=== PATIENT | female | born 1960 | race Caucasian/White ===

== ENCOUNTER 2016-04-26 01:41 | Inpatient (IN) | payer OTHER ==
[~2016-04-26] VITALS: Ht 154.9 cm; Wt 103.4 kg
[~2016-04-26 01:41] MED LIST: LIDODERM1 EACH EXT; MACROBID 100 M100 MG PO; NOVAPLUS V0.09 MG/Ac INH; PERCOCET 10-321 EACH PO; PREDNICOT20 MG PO; ROBITUSSIN W/CO10 ML PO; SENNA8.6 M3 PO; ZITHROMAX Z-PA250 M1 PO
--- NOTE | 2016-04-26 09:43 | Operative Report ---
Operative/Inv Procedure Report Surgery Date: 04/26/16 Name of Procedure: Right total knee arthroplasty Pre-Operative Diagnosis: Right knee degenerative joint disease Post-Operative Diagnosis: Right knee degenerative joint disease Estimated Blood Loss: 50ml to 100ml Surgeon/Health Insurance Specialist: VANESSA MARTINEZ,ISABELA COHEN Anesthesia: general endotracheal tube, block Implants: More [employer] Nephew size 3-4 9 mm Legion cruciate retaining XLPE high flexion articular insert. Amanda II biconvex patellar component 23 mm. Size 5 right cruciate retaining legion Oxinium femoral component. Amanda II right nonporous tibial baseplate size 4. Drains: Hemovac Complications: None Condition: Stable to PACU Operative Indication: This is a 55-year-old female with long-standing right knee pain. She has failed conservative care as well as a knee arthroscopy. Risks and benefits of the procedure were discussed with the patient at length. Risks include but are not limited to nerve damage, muscle damage, infection, blood loss, blood clots, pulmonary embolus, and even . The patient agreed to the above risks and elected to proceed with surgery. Operative/Procedure Note Note: The patient was taken to the operating room. Anesthesia was induced after the timeout was performed. The lower extremity was prepped and draped in the normal sterile fashion. IV antibiotics were given prior to incision. The site marking was visualized prior to incision. After the leg was prepped and draped, an esmarch was used to exsanguinate the extremity. The tourniquet was inflated. A midline incision was made proximal to the patella extending down to the tibial tubercle. A medial parapatellar approach was then made. The skin was retracted and the extensor mechanism was incised. The knee was taken down into full extension. The patellar fat pad was resected. The medial retinaculum was then taken down. The synovium over the distal femur was then resected. The patella was everted and the knee was flexed up. The lateral meniscus was then excised. The ACL was removed. A drill was then used to open up the distal femur. The intramedullary guide was then applied. A 6 distal femoral cut was then made. The femur was then sized. The chamfer guide was then applied. The anterior, posterior, and chamfer cuts were then made while protecting the patellar tendon with a Hohmann retractor and the medial collateral ligament with a Z retractor. A pickle fork was then used to deliver the tibia. The extramedullary tibial guide was then applied. The proximal tibial cut was made. The medial and lateral meniscus were then excised. The osteophytes were removed with a Rongeur. The tibia was sized and the trial base plate was then pinned in place. A trial femoral component was placed and a trial polyethylene insert was then applied as well. The knee was taken through a range of motion and was noted to be quite stable. The patella was then everted, sized, and then reamed. A trial patellar component was placed and the knee was taken through range of motion. The patella was noted to be quite stable. All trial instruments were then removed. The knee was copiously irrigated. Retractors were placed in the final components were then cemented in. A trial polyethylene insert was then placed. After the cement was hardened, the excess cement was removed. The trial poly-insert was then removed. The knee was copiously irrigated. The final poly insert was inserted. The tourniquet was let down. Any bleeding vessels were identified and cauterized. A 1/8 inch Hemovac drain was then placed. The extensor mechanism was closed with #1 Vicryl suture in a simple interrupted fashion. The skin was closed with 2-0 Vicryl suture. A running subcuticular 4-0 Monocryl stitch was then placed. Dermabond was applied. A dry sterile dressing was placed and patient was transferred to PACU in stable condition.
[2016-04-26] MEDS ORDERED: LOVENOX40 MG/0.1 SC (09:45)
--- NOTE | 2016-04-26 09:49 | Patient Discharge Instructions ---
Discharge Instructions General Discharge Information You were seen/treated for: Right knee osteoarthritis, primarily unilateral You had these procedures: Right total knee replacement Special Instructions: Follow-up with Dr Banegas in 2 weeks. Call the office with any concerns of fever greater than 101.5. Large amounts of discharge or drainage from the wound or inability to bear weight on your operative side. You may weight-bear as tolerated. Activity as tolerated. Range of motion as tolerated. Do not put pillows behind the knee, use a pillow under the heel to ensure your are in full knee extension. Keep the dressing dry as possible, you may shower with the dressing in place however, do not take a bath or submerge the wound in water as this will increase her chance of infection. Change the dressings after the shower. You may use dry gauze and tape or large Band-Aids Do not apply any ointments to the wound. Due to a risk of blood clots you'll need to be on lovenox onde per day for the next 4 weeks. Take pain medication as directed. Apply ice as needed for 20 minutes every hour for the first few days. Please take Colace and/or MiraLAX [id number] to avoid constipation while you're on narcotic pain medication. Diet Continue normal diet: Yes Recommended Diet: Regular Activity Full Activity/No Limits: No Activity Self Limited: Yes Acute Coronary Syndrome Inclusion Criteria At DC or during hospital stay patient has or had the following: ACS DIAGNOSIS No Discharge Core Measures Meds if any: Prescribed or Continued at Discharge Meds if any: NOT Prescribed or Continued at Discharge Congestive Heart Failure Inclusion Criteria At DC or during hospital stay patient has or had the following: CHF DIAGNOSIS No Discharge Core Measures Meds if any: Prescribed or Continued at Discharge Meds if any: NOT Prescribed or Continued at Discharge Cerebrovascular accident Inclusion Criteria At DC or during hospital stay patient has or had the following: CVA/TIA Diagnosis No Discharge Core Measures Meds if any: Prescribed or Continued at Discharge Meds if any: NOT Prescribed or Continued at Discharge Venous thromboembolism Inclusion Criteria VTE Diagnosis No VTE Type NONE VTE Confirmed by (Test) NONE Discharge Core Measures - Per Current guidelines, there needs to be overlap - treatment for the first 5 days of Warfarin therapy. - If discharged on Warfarin prior to 5 days of - overlap therapy, the patient will need to be - assessed for post discharge needs including - *Post discharge parental anticoagulation - *Warfarin and/or parental anticoagulation education - *Follow up date to check INR post discharge At least 5 days overlap therapy as Inpatient No Meds if any: Prescribed or Continued at Discharge Note: Overlap Therapy is Warfarin and Anticoagulant Meds if any: NOT Prescribed or Continued at Discharge
--- NOTE | 2016-04-26 09:50 | Admission Core Measures ---
Admission Meds I reviewed the following Meds: Current Medications Sig/Yousuf Start time Last Medication Dose Stop Time Status Admin Clindamycin 600 MG ONCE 04/26 0000 NR (Cleocin) 04/26 2359 Dextrose/Water 50 ML (D5W) Ropivacaine 500 ML ONCE ONE 04/26 1000 AC (NAROPIN) 04/28 1159 ON-Q Ball 1 BAG Acute Coronary Syndrome Inclusion Criteria ACS Diagnosis No Inpatient Core Measures LDL Reminder: If No, please order W/I first 24hr of stay Congestive Heart Failure Inclusion Criteria CHF Diagnosis No Cerebrovascular accident Inclusion Criteria CVA/TIA Diagnosis No Inpatient Core Measures Bedside Swallow Eval Reminder: If BSE failed, place ST order Antithrombotic Reminder: Order Antithrombotic Medication by end of day 2 Antithrombotic Reminder: Document Reason Antithrombotic Not ordered by end of day 2 AFIB/Flutter Reminder: If Present, add to problem list AFIB/Flutter Reminder: Order Anticoag Medication for pts with AFIB/Flutter Atherosclerosis Reminder: If Present, add to problem list LDL Reminder: If No, please order W/I first 24hr of stay PT Order Reminder: If No, please order Venous thromboembolism Inpatient Core Measures VTE Risk Factors: Age > 40, Surgery VTE Prophylaxis Ordered Inpt Mech & Pharm No Mech VTE prophylaxis d/t No contraindications No VTE Pharm Prophylaxis d/t No contraindications Inclusion Criteria - Per Current guidelines, there needs to be overlap - treatment for the first 5 days of Warfarin therapy. - Parenteral Anticoagulation (IV or SC) needs to be - given along with Warfarin therapy. VTE Diagnosis No VTE Type NONE VTE Confirmed by (Test) NONE Problem List As ranked by this Provider includes Assessment & Plan 1. Unilateral primary osteoarthritis, right knee HOME MEDS Home Med List Lidocaine (Lidoderm) 5 % ADH..PATCH 1 PATCH EXT DAILY PRN PAIN (Reported) Nitrofurantoin Monohyd/M-Cryst (Macrobid 100 MG Capsule) 100 MG CAPSULE 1 TAB PO QOD PROPHO UTI (Reported) Oxycodone HCl/Acetaminophen (Percocet 10-325 MG Tablet) 10 MG-325 MG TABLET 1 TAB PO TID PRN PAIN (Reported) Sennosides (Senna) 8.6 MG TABLET 1 TAB PO DAILY CONSTIPATION (Reported)
--- NOTE | 2016-04-26 09:54 | Surgical Discharge Summary ---
Visit Information Visit Dates Admission Date: 04/26/16 Discharge Date: 05/01/16 History of Present Illness Chief Complaint: Right knee pain secondary to right knee osteoarthritis. Patient has failed conservative treatment is indicated for right total knee arthroplasty. She had a DSA in the past with a meniscectomy, LUCAS injections without relief. Medical History Neurological: NONE EENT: NONE Cardiovascular: aortic aneurysm Respiratory: NONE Gastrointestinal: NONE Hepatic: NONE Renal: NONE Musculoskeletal: CHRONIC BACK PAIN Psychiatric: NONE Endocrine: NONE Blood Disorders: NONE Cancer(s): NONE PHOTOGRAPH INSPECTOR/Reproductive: NONE Surgical History Pertinent Surgical History: hysterectomy, BACK SURGERY BLADDER LIFT, SHOULDER SURGERY Psychosocial History Who Do You Live With? Spouse What is Your Primary Language? Swedish Review of Systems: See HPI Hospital Course Course Attending Physician: ISABELA GOMEZ MD Primary Care Physician: DIDIER KNOX MD Hospital Course: Patient was admitted for elective RIGHT KNEE replacement secondary to osteoarthritis. The patient tolerated the procedure well without complications. Postoperatively the patient was monitored and tolerated by mouth intake, vital signs are stable, afebrile. Patient was able to void spontaneously. Pain was well-controlled. Evaluated by physical therapy and deemed stable for discharge home. Plan is to follow up as scheduled and instructed to call with any questions or concerns She received Cleocin for infectious prophylaxis and Lovenox for DVT prophylaxis. Allergies: Coded Allergies: ciprofloxacin (From Cipro) (Intermediate, HIVES 09/02/15) Penicillins (04/18/16) adhesive tape (UNKNOWN 09/02/15) diphenhydramine (UNKNOWN 09/02/15) Disposition Summary Disposition Principal Diagnosis: Primary unilateral right knee osteoarthritis Additional Diagnosis: Same plus status post right total knee arthroplasty Discharge Disposition: SNF Discharge Instructions General Discharge Information Code Status: Full Code Patient's Diet: Regular Patient's Activity: Ambulate as tolerated Follow-Up Instructions/Appts: Follow-up with Dr. Gomez in 2 weeks Medications at Discharge Discharge Medications: Stop taking the following medications: Oxycodone HCl/Acetaminophen (Percocet 10-325 MG Tablet) 10 MG-325 MG TABLET ORAL THREE TIMES DAILY as needed for PAIN Continue taking these medications: Nitrofurantoin Monohyd/M-Cryst (Macrobid 100 MG Capsule) 100 MG CAPSULE 1 Tablet ORAL QOD Lidocaine (Lidoderm) 5 % ADH..PATCH 1 PATCH ON SKIN DAILY as needed for PAIN Sennosides (Senna) 8.6 MG TABLET 1 Tablet ORAL DAILY Start taking the following new medications: Oxycodone HCl (Oxycodone HCl) 10 MG TABLET 10 Milligram ORAL EVERY 4 HOURS NEEDED as needed for PAIN SCALE 4-6 ( MODERATE) Qty = 1 No Refills Oxycodone HCl (Oxycodone HCl) 5 MG TABLET 15 Milligram ORAL EVERY 4 HOURS NEEDED as needed for PAIN SCALE 7-10 ( SEVERE) Qty = 1 No Refills Enoxaparin Sodium (Lovenox) 40 MG/0.4 ML SYRINGE 0.4 Milliliters Inject into fatty tissue DAILY Qty = 30 No Refills Acetaminophen (Tylenol) 325 MG TABLET 2 Tablet ORAL Q4H as needed for PAIN Qty = 1 No Refills Oxycodone HCl (Oxycontin) 30 MG TAB.ER.12H 1 Tablet ORAL TWICE DAILY Qty = 1 No Refills
[2016-04-26 14:00] VITALS: BP 130/70
--- NOTE | 2016-04-26 15:41 | PN- Orthopedic ---
Subjective Subjective: Post op check. Patient received on general surgical floor. She tolerated procedure well but is complaining of surgical pain. She deneis chest pain, shortness of breath and difficulty breathing. She denies nausea and vomitting. She has yet to ambulate. Objective Vital Signs and I&Os Vital Signs Date Time Temp Pulse Resp B/P Pulse O2 O2 Flow FiO2 Ox Delivery Rate 04/26 1425 Nasal 3.0L Cannula 04/26 1417 97 Nasal 3.0L Cannula 04/26 1400 97.0 68 18 130/70 97 Nasal 3.0L Cannula Intake & Output 04/26 1600 04/26 0800 04/26 0000 04/25 1600 04/25 0800 04/25 0000 Intake Total Output Total 2400 Balance -2400 Output, Urine 2400 Patient 228 lb Weight Physical Exam: General: Alert and oriented x3, no acute distress Cardiac: RRR, s1s2 Pulm: CTA bilaterally Abdomen: Non-tender, non-distended Extremities: Moves all extremities, distal sensation intact. Motor 5/5 in plantar and dorsi flexion. Skin warm and well perfused. DP pulses palpable bilaterally. Bilateral calves soft and non-tender Surgical site: Right knee. Dressing intact. JAMES drain holding suction with sanguinous drainage. On Q in place without evidence of leaking or infiltrate Assessment/Plan Assessment/Plan This is a 55 year old POD 0, s/p R tkr -Dilaudid [employer] -Cleocin for abx ppx -Lovenox for dvt ppx -OOB with PT, wbat -Advance diet as tolerated -Bowel regimen to include colace and miralax -Pt anticipating d/c to str -Will d/w Dr. Gomez Core Measures/Miscellaneous Venous Thromboembolism VTE Risk Factors: Age > 40, Surgery VTE Contraindications: No Contraindications VTE Prophylaxis Ordered Inpt: Mech & Pharm VTE Diagnosis: No VTE Type: NONE VTE Confirmed by (Test): NONE Beta Aramis Is Beta Aramis a Home Med? No Antibiotics Is Patient on Antibiotics? Yes If Yes: prophylaxis
[2016-04-26 16:25] VITALS: BP 130/77
[2016-04-26 18:08] VITALS: BP 141/87
[2016-04-26 20:07] VITALS: BP 127/70
[2016-04-26 21:59] VITALS: BP 126/63
[2016-04-27] VITALS (13 sets, daily range): BP systolic 114–149; BP diastolic 60–78
--- NOTE | 2016-04-27 07:36 | PN- Orthopedic ---
Subjective Subjective: POD #1 s/p right TKR. Resting comfortably in bed. No complaints of pain. Using Dilaudid TERMINATION CLERK often. Did not sleep last night. Voiding via elias catheter. Yet to ambulate. Objective Vital Signs and I&Os Vital Signs Date Time Temp Pulse Resp B/P Pulse O2 O2 Flow FiO2 Ox Delivery Rate 04/27 0653 98.0 70 20 132/77 98 Nasal 3.0L Cannula 04/27 0600 98.0 70 20 132/77 04/27 0402 97.8 67 20 149/78 100 Nasal 3.0L Cannula 04/27 0400 97.8 67 20 149/78 04/27 0256 98.0 62 20 118/73 95 Nasal 3.0L Cannula 04/27 0200 98.0 62 20 118/73 04/27 0005 98.1 64 20 120/60 96 Nasal 3.0L Cannula 04/27 0000 98.1 64 20 120/60 04/27 0000 100 Nasal 3.0L Cannula 04/26 2159 98.9 68 20 126/63 96 Nasal Cannula 04/26 2006 97.3 73 20 127/70 97 Nasal Cannula 04/26 1808 98.0 88 20 141/87 96 Nasal Cannula 04/26 1625 97.8 66 20 130/77 97 Nasal Cannula 04/26 1600 Nasal 3.0L Cannula 04/26 1425 Nasal 3.0L Cannula 04/26 1417 97 Nasal 3.0L Cannula 04/26 1400 97.3 68 18 130/70 04/26 1400 97.0 68 18 130/70 97 Nasal 3.0L Cannula Intake & Output 04/27 0800 04/27 0000 04/26 1600 04/26 0800 04/26 0000 04/25 1600 Intake Total 840 1500 Output Total 915 2100 2400 Balance -75 -600 -2400 Intake, IV 600 700 Intake, Oral 240 800 Output, 65 Drainage Output, Urine 850 2100 2400 Patient 228 lb Weight Physical Exam: Gen: AAox3 in NAD Cor: S1+S2+ Lungs: CTA tere Abd: soft, NT, ND, +BS x4 Ext: palpable Dp pulse. Taras wrap in place. Dorsiflexion and plantar flexion intact. Sensation grossly intact. Onq in place. CARLOS drain with sanguinous drainage noted (actively into CARLOS). Thigh compartment soft. CARLOS: -/not documented (per patient whole bulb of CARLOS was emptied)/100ml Current Medications: Current Medications Sig/Yousuf Start time Last Medication Dose Route Stop Time Status Admin Acetaminophen 1,000 MG Q6P PRN 04/26 1615 AC 04/26 N/A 1 UNIT IV 2153 Acetaminophen 650 MG Q4P PRN 04/26 1415 AC PO Clindamycin 600 MG IQ8 04/26 1600 DC 04/26 Dextrose/Water 50 ML IV 04/27 0029 2343 Clindamycin 600 MG ONCE 04/26 0000 DC Dextrose/Water 50 ML IV 04/26 2359 Dextrose/Sodium 1,000 ML .[id number] 04/26 1415 DC 04/27 Chloride IV 0402 Docusate Sodium 100 MG DAILY NEEDED PRN 04/26 1415 AC PO Enoxaparin Sodium 40 MG DAILY 04/27 1000 AC SC Hydromorphone HCl 50 MG Q24H PRN 04/26 1200 AC Sodium Chloride 45 ML IV Hydromorphone HCl 2 MG .STK-MED ONE 04/26 1054 DC IM 04/26 1055 Hydromorphone HCl 2 MG .STK-MED ONE 04/26 0949 DC IM 04/26 0950 Ketorolac 30 MG Q6P PRN 04/26 1915 AC 04/27 Tromethamine IV 0110 Ketorolac 30 MG Q6P PRN 04/26 1415 DC Tromethamine IM 04/29 1403 Morphine Sulfate 15 MG BID 04/26 2200 AC 04/26 PO 2150 Morphine Sulfate 4 MG Q2P PRN 04/26 1415 AC IV Ondansetron HCl 4 MG Q6P PRN 04/26 1415 AC IV Oxycodone/ 1 TAB Q4 HRS NEEDED PRN 04/26 1415 AC Acetaminophen PO Oxycodone/ 2 TAB Q4P PRN 04/26 1415 AC Acetaminophen PO Polyethylene Glycol 17 GM DAILY NEEDED PRN 04/26 1415 AC PO Promethazine HCl 12.5 MG Q6P PRN 04/26 1415 AC IV 05/03 0944 Ropivacaine 500 ML ONCE ONE 04/26 1000 AC ON-Q Ball 1 BAG INJ 04/28 1159 Results Last 48 Hours of Labs: Laboratory Tests 04/27 0700 Chemistry Sodium Pending Potassium Pending Chloride Pending Carbon Dioxide Pending Anion Gap Pending BUN Pending Creatinine Pending BUN/Creatinine Ratio Pending Hematology CBC w Diff Pending WBC Pending RBC Pending Hgb Pending Hct Pending MCV Pending MCH Pending RDW Pending Plt Count Pending MPV Pending PUBS MCHC Pending Assessment/Plan Assessment/Plan A: POD #1 s/p right TKR; AVSS. Plan: D/C elias catheter. Patient will be due to void. Aggressive bowel regimen. F/U pain management recommendations. will likely need to stop Dilaudid TERMINATION CLERK today. PT/OT evaluation today. Dressing change tomorrow with removal of Onq pump. Carlos to be reassessed later today for removal due to high sanguinous output. Core Measures/Miscellaneous Venous Thromboembolism VTE Risk Factors: Age > 40, Surgery VTE Contraindications: No Contraindications VTE Prophylaxis Ordered Inpt: Mech & Pharm VTE Diagnosis: No VTE Type: NONE VTE Confirmed by (Test): NONE Beta Aramis Is Beta Aramis a Home Med? No Antibiotics Is Patient on Antibiotics? Yes If Yes: prophylaxis
[2016-04-27 07:52] LABS: ABSOLUTE BASOPHIL COUNT 0 /CUMM (0.0-0.2); ABSOLUTE EOSINOPHIL COUNT 0 /CUMM (0.0-0.7); ABSOLUTE GRANULOCYTE CT 12.5 /CUMM (1.4-6.5); ABSOLUTE LYMPH COUNT 2.5 /CUMM (1.2-3.4); ABSOLUTE MONOCYTE COUNT 1.1 /CUMM (0.10-0.60); BASOPHIL % 0.2 % (0.0-2.0); EOSINOPHIL % 0.1 % (0-5); GRANULOCYTE % 77.3 % (42.2-75.2); HEMATOCRIT 37.2 % (37-47); MEAN CORPUSCULAR HGB 27.4 PG (27.0-31.0); MEAN CORPUSCULAR HGB CONC 32.8 G/DL (33.0-37.0); MEAN CORPUSCULAR VOLUME 83.6 FL (81.0-99.0); MEAN PLATELET VOLUME 8.6 FL (7.4-10.4); PLATELET COUNT 292 /CUMM (130-400); RBC DISTRIBUTION WIDTH 14.4 % (11.5-14.5); RED BLOOD CELL CT 4.45 /CUMM (4.20-5.40); WHITE BLOOD CELL COUNT 16.1 /CUMM (4.8-10.8)
[2016-04-28 07:02] VITALS: BP 126/72
[2016-04-28 08:44] LABS: ABSOLUTE BASOPHIL COUNT 0 /CUMM (0.0-0.2); ABSOLUTE EOSINOPHIL COUNT 0.1 /CUMM (0.0-0.7); ABSOLUTE GRANULOCYTE CT 12.6 /CUMM (1.4-6.5); ABSOLUTE LYMPH COUNT 1.5 /CUMM (1.2-3.4); BASOPHIL % 0.2 % (0.0-2.0); EOSINOPHIL % 0.9 % (0-5); GRANULOCYTE % 82.7 % (42.2-75.2); HEMATOCRIT 35.4 % (37-47); MEAN CORPUSCULAR HGB 27.4 PG (27.0-31.0); MEAN CORPUSCULAR HGB CONC 32.9 G/DL (33.0-37.0); MEAN CORPUSCULAR VOLUME 83.3 FL (81.0-99.0); MEAN PLATELET VOLUME 8.7 FL (7.4-10.4); PLATELET COUNT 265 /CUMM (130-400); RBC DISTRIBUTION WIDTH 14.6 % (11.5-14.5); RED BLOOD CELL CT 4.25 /CUMM (4.20-5.40); WHITE BLOOD CELL COUNT 15.3 /CUMM (4.8-10.8)
--- NOTE | 2016-04-28 09:07 | PN- Orthopedic ---
See Addendum Subjective Subjective: NAEO. Patient without new c/o. She had increased pain after On-Q pump emptied. Tolerating diet without n/v. +flatus, no BM. OOB and ambulating with PT. Denies CP/SOB. Objective Vital Signs and I&Os Vital Signs Date Time Temp Pulse Resp B/P Pulse O2 O2 Flow FiO2 Ox Delivery Rate 04/28 0702 99.8 80 16 126/72 92 Room Air 04/27 2230 98.6 70 20 128/70 93 Room Air 04/27 1549 Nasal 3.0L Cannula 04/27 1410 98.2 90 20 130/70 95 04/27 1100 98.0 72 18 114/78 04/27 1000 98.0 72 18 114/78 Intake & Output 04/28 1600 04/28 0800 04/28 0000 04/27 1600 04/27 0800 04/27 0000 Intake Total 240 480 777 548 8832 Output Total 600 408 561 3079 2100 Balance -360 -120 -165 -575 -600 Intake, IV 600 700 Intake, Oral 240 480 800 240 800 Output, 65 65 Drainage Output, Urine 600 633 162 4128 2100 Physical Exam: General: NAD, comfortable, A&Ox3 Chest: NRD, breathing comfortably on RA. Heart S1S2 normal. Abdomen: soft, nontender, nondistended. Ext: Right knee incision c/d/i. RLE compartments soft. No calve swelling/TTP, neurovascularly intact bilateral lower extremities Current Medications: Current Medications Sig/Yousuf Start time Last Medication Dose Route Stop Time Status Admin Acetaminophen 1,000 MG Q6P PRN 04/26 1615 AC 04/26 N/A 1 UNIT IV 2153 Acetaminophen 650 MG Q4P PRN 04/26 1415 AC PO Docusate Sodium 100 MG DAILY NEEDED PRN 04/26 1415 AC 04/27 PO 0858 Enoxaparin Sodium 40 MG DAILY 04/27 1000 AC 04/27 SC 0859 Hydromorphone HCl 1 MG Q2-3 HRS NEEDED.. 04/27 1130 AC 04/28 IV 0357 Hydromorphone HCl 50 MG Q24H PRN 04/26 1200 DC Sodium Chloride 45 ML IV Ketorolac 30 MG Q6P PRN 04/26 1915 AC 04/28 Tromethamine IV 0552 Morphine Sulfate 15 MG BID 04/26 2200 AC 04/27 PO 2128 Morphine Sulfate 4 MG Q2P PRN 04/26 1415 DC IV Ondansetron HCl 4 MG Q6P PRN 04/26 1415 AC IV Oxycodone/ 1 TAB Q4 HRS NEEDED PRN 04/26 1415 AC Acetaminophen PO Oxycodone/ 2 TAB Q4P PRN 04/26 1415 AC 04/28 Acetaminophen PO 0730 Patient Medication 1 ED .STK-MED ONE 04/27 1357 DC Teaching ED 04/27 1358 Polyethylene Glycol 17 GM DAILY NEEDED PRN 04/26 1415 AC 04/27 PO 0859 Promethazine HCl 12.5 MG Q6P PRN 04/26 1415 AC IV 05/03 0944 Ropivacaine 500 ML ONCE ONE 04/26 1000 AC ON-Q Ball 1 BAG INJ 04/28 1159 Results Last 48 Hours of Labs: Laboratory Tests 04/28 04/27 0710 0700 Chemistry Sodium (137 - 145 mmol/L) Pending 141 Potassium (3.5 - 5.1 mmol/L) Pending 4.2 Chloride (98 - 107 mmol/L) Pending 101 Carbon Dioxide (22 - 30 mmol/L) Pending 28 Anion Gap (5 - 16) Pending 11 BUN (7 - 17 mg/dL) Pending 12 Creatinine (0.5 - 1.0 mg/dL) Pending 0.5 Estimated GFR (>60 ml/min) > 60 BUN/Creatinine Ratio (7 - 25 %) Pending 24.0 Hematology CBC w Diff NO MAN DIFF REQ NO MAN DIFF REQ WBC (4.8 - 10.8 /CUMM) 15.3 H 16.1 H RBC (4.20 - 5.40 /CUMM) 4.25 4.45 Hgb (12.0 - 16.0 G/DL) 11.6 L 12.2 Hct (37 - 47 %) 35.4 L 37.2 MCV (81.0 - 99.0 FL) 83.3 83.6 MCH (27.0 - 31.0 PG) 27.4 27.4 RDW (11.5 - 14.5 %) 14.6 H 14.4 Plt Count (130 - 400 /CUMM) 265 292 MPV (7.4 - 10.4 FL) 8.7 8.6 Gran % (42.2 - 75.2 %) 82.7 H 77.3 H Lymphocytes % (20.5 - 51.1 %) 9.6 L 15.7 L Monocytes % (1.7 - 9.3 %) 6.6 6.7 Eosinophils % (0 - 5 %) 0.9 0.1 Basophils % (0.0 - 2.0 %) 0.2 0.2 Absolute Granulocytes (1.4 - 6.5 /CUMM) 12.6 H 12.5 H Absolute Lymphocytes (1.2 - 3.4 /CUMM) 1.5 2.5 Absolute Monocytes (0.10 - 0.60 /CUMM) 1.0 H 1.1 H Absolute Eosinophils (0.0 - 0.7 /CUMM) 0.1 0 Absolute Basophils (0.0 - 0.2 /CUMM) 0 0 PUBS MCHC (33.0 - 37.0 G/DL) 32.9 L 32.8 L Assessment/Plan Assessment/Plan 55yo F POD#2 s/p right TKA. AVSS, patient stable. - f/u pain management consult - PRN zofran - Bowel regimen - OOB and ambulate with PT, WBAT - Lovenox daily - I/O's - ALPS - continue diet - Plan for STR - Will d/w attending Core Measures/Miscellaneous Venous Thromboembolism VTE Risk Factors: Age > 40, Surgery VTE Contraindications: No Contraindications VTE Prophylaxis Ordered Inpt: Mech & Pharm VTE Diagnosis: No VTE Type: NONE VTE Confirmed by (Test): NONE Beta Aramis Is Beta Aramis a Home Med? No Antibiotics Is Patient on Antibiotics? No
[2016-04-28 14:58] VITALS: BP 112/70
[2016-04-28 23:55] VITALS: BP 110/66
[2016-04-29 06:51] VITALS: BP 120/80
--- NOTE | 2016-04-29 08:13 | PN- Student ---
GRACE MCGRAW 04/29/16 0805: Subjective Subjective: Patient reports no acute events overnight. She states she is still struggling with pain managment. She states the pain in her right knee is sharp in nature when she moves it. When she is resting she reports the pain is a 6/10 but when she moves her knee it is a 10/10. She also reports her chronic back pain is compounding her pain because of laying in the bed so much. She expressed that although her pain is not well controlled she has noticed improvements each day with the ability to tolerate movement of her leg. She states she is only getting out of bed to void and get in the chair. She denies any chest pain, shortness of breath, vision changes, calf tenderness, nausea or vomiting. She does complain of a mild headache which she reports is from laying in bed so much. Objective Objective: Vitals: BP:120/80 Pulse:84 Resp:18 Temp:98.9F Physical Exam: General: Well appearing in no acute distress. Alert and oriented to person place and time. Head: Normocephalic, atraumatic. Eyes: PERRL, EOMI Cardiac: Regular rate and rhythm. Normal S1 and S2. No murmurs rubs or gallops. Pulmonary: Clear to auscultation bilaterally. No murmurs, rubs, or gallops. Abdomen: Non-distended, non-tender to palpation. Normoactive bowel sounds. Extremeities: Right leg mildly swollen and tender to palpation. No pitting edema bilaterally with 2+ dorsalis pedis pulses. Incision site covered by dressing. Minimal dry bloody discharge on dressing. No erythema or drainage from site. Results Results: Laboratory Tests 04/28/16 0710: Anion Gap 10, Estimated GFR > 60, BUN/Creatinine Ratio 24.0, CBC w Diff NO MAN DIFF REQ, RBC 4.25, MCV 83.3, MCH 27.4, RDW 14.6 H, MPV 8.7, Gran % 82.7 H, Lymphocytes % 9.6 L, Monocytes % 6.6, Eosinophils % 0.9, Basophils % 0.2, Absolute Granulocytes 12.6 H, Absolute Lymphocytes 1.5, Absolute Monocytes 1.0 H, Absolute Eosinophils 0.1, Absolute Basophils 0, PUBS MCHC 32.9 L 04/27/16 0700: Anion Gap 11, Estimated GFR > 60, BUN/Creatinine Ratio 24.0, CBC w Diff NO MAN DIFF REQ, RBC 4.45, MCV 83.6, MCH 27.4, RDW 14.4, MPV 8.6, Gran % 77.3 H, Lymphocytes % 15.7 L, Monocytes % 6.7, Eosinophils % 0.1, Basophils % 0.2, Absolute Granulocytes 12.5 H, Absolute Lymphocytes 2.5, Absolute Monocytes 1.1 H, Absolute Eosinophils 0, Absolute Basophils 0, PUBS MCHC 32.8 L Assessment/Plan Assessment: Patient is a 55 year old female with a history of chronic back pain, thoracic aortic aneurysm, obesity, and osteoarthritis of the right knee. Patient is POD# 3 for a right total knee replacement without complications during hospital stay. Plan: -Continue regular diet. -Discontinued percocet. -Discontinued IV dilauded. -Initiated 10-15mg oxycodone PO Q4hrs prn. -Initiated 1000mg acetominophen IV Q6hrs prn. -Continue 15mg MS Contin PO BID. -Continue 30mg Toradol IV Q6hrs prn. -Encourage out of bed ambulation. -Continue ALPs when in bed. -Continue physical therapy as directed. -Continue 40 mg Enoxaparin for DVT prophylaxis s/p total knee replacement. -Initiate bowel regimen. -Patient to be discharged to rehab facility tomorrow. Will discuss above with PA surgical team. Grace COHEN-S2 JESSICADEEP LayGARETH 04/29/16 0838: Resident Review Statement Resident Statement: examined this patient Other Findings: Agree with above assessment and plan. Patient seen and examined. Pain regimen altered to minimize use of IV dilaudid. Had bowel movement yesterday. Follow up with pain management recommendations Discharge to [facility] tomorrow, pending bed availability
[2016-04-29 15:45] VITALS: BP 108/68
[2016-04-29 23:42] VITALS: BP 120/68
--- NOTE | 2016-04-30 06:41 | PN- Orthopedic ---
Surgical Brief Attending Note Brief Attending Note: Resting in bed, she is frustrated with her pain level despite multiple attempts to keep her comfortable. She is texting her pain management physician. AVSS RLE - +EHL/FHL +sens m/l/1st dws incision clean/dry/intact A/P - POD 4 s/p R TKA WBAT PT Lovenox D/C to rehab Her maintenance painter apprentice should be consulted again for any other recommendations they may have for her medications at rehab facility
[2016-04-30 07:12] VITALS: BP 156/88
[2016-04-30] MEDS ORDERED: OXYCODONE HCL10 M2 PO (12:07)
[2016-04-30] MEDS ORDERED: TYLENOL325 M1 PO (12:08)
[2016-04-30] MEDS ORDERED: OXYCODONE HCL5 M1 PO (12:08)
[2016-04-30] MEDS ORDERED: OXYCONTIN30 M1 PO (15:17)
[2016-04-30 16:20] VITALS: BP 120/68
[2016-04-30 22:42] VITALS: BP 140/80
[2016-05-01 07:34] VITALS: BP 112/66
--- NOTE | 2016-05-01 07:53 | PN- Orthopedic ---
See Addendum Subjective Subjective: Reporting no acute overnight events. She still complains of surgical pain, but she has been able to ambulate independently using a walker. She denies chest pain, shortness of breath, difficulty breathing. She denies nausea and vomiting. She has been voiding spontaneously, and moving her bowels. Objective Vital Signs and I&Os Vital Signs Date Time Temp Pulse Resp B/P Pulse O2 O2 Flow FiO2 Ox Delivery Rate 05/01 0734 98.3 80 18 112/66 93 Room Air 04/30 2242 99.5 77 22 140/80 94 Room Air 04/30 1620 98.2 66 20 120/68 96 04/30 1240 Nasal 3.0L Cannula Intake & Output 05/01 0800 05/01 0000 04/30 1600 04/30 0800 04/30 0000 04/29 1600 Intake Total 500 767 200 3586 900 Output Total 650 20 Balance 500 70 380 1630 900 Intake, IV 200 130 100 Intake, Oral 500 569 503 0615 800 Number 0 1 Bowel Movements Output, 20 Emesis Output, Urine 650 Physical Exam: Gen.: Alert and oriented 3, no acute distress Cardiac: Regular rhythm and rate, S1-S2 Pulmonary: Bilateral lung sounds clear to auscultation Abdomen: Nontender nondistended Extremities: Moves all extremities, distal sensations grossly intact. DP pulses palpable bilaterally. Bilateral calves soft and nontender. Surgical site: Right knee: Dressing dry and intact Assessment/Plan Assessment/Plan This is a 55-year-old postop day 5 status post right total knee replacement. Past medical history significant for chronic pain, thoracic aortic aneurysm, and obesity. Plan for today is discharge to short-term rehabilitation facility pending bed placement. -Continue current pain regimen, discussed case with Dr. Friedman's office, they will handle postoperative pain control when she is discharged from short term -Continue diet as tolerated -Continue out of bed as tolerated weight-bear as tolerated -Continue DVT prophylaxis Lovenox 40 -Plan for discharge today to short-term rehabilitation facility. -Will discuss with Juan Francisco Gomez MD Core Measures/Miscellaneous Venous Thromboembolism VTE Risk Factors: Age > 40, Surgery VTE Contraindications: No Contraindications VTE Prophylaxis Ordered Inpt: Mech & Pharm VTE Diagnosis: No VTE Type: NONE VTE Confirmed by (Test): NONE Beta Aramis Is Beta Aramis a Home Med? No Antibiotics Is Patient on Antibiotics? No
[2016-05-01 11:49] VITALS: BP 112/66
[2016-05-01 14:51] VITALS: BP 140/70
[2016-06-25] MEDS ORDERED: PERCOCET 10-321 EACH PO (12:35)
[2016-06-25] MEDS ORDERED: SENNA8.6 M3 PO (12:35)
[2016-06-25] MEDS ORDERED: BACTRIM 400-801 EACH PO (12:35)
[2016-06-25] MEDS ORDERED: NEURONTIN300 M1 PO (12:36)
== END 2016-05-01 16:15 | DRG 470 ==
LOC: ENRESERVDT → ENRESERVTM → DELPENDDIS 01:41 → ENPENDDIS 01:41 → SDA 01:41 → 2NA 13:42
PROVIDERS: Physician Assistant; Physician Assistant Surgical; ADMIT Orthopaedic Surgery
PROC: 0SRC0J9 Replacement of Right Knee Joint with Synthetic Substitute, Cemented, Open Approach (ICD-10-PCS; principal; 2016-04-26)
DX: M17.11 Unilateral primary osteoarthritis, right knee (principal); Z68.41 Body mass index [BMI] 40.0-44.9, adult; I71.4 Abdominal aortic aneurysm, without rupture; E66.9 Obesity, unspecified; G47.33 Obstructive sleep apnea (adult) (pediatric); Z87.891 Personal history of nicotine dependence
CPT/HCPCS: 2NAP; 36415; 82436; 87086; 88305; 97110-GO; 97116-GO; 97162-GP; 97530-GO; C1713; J0131; J1170; J1650; J1885; J2405; J2550; J2795; J7042

== ENCOUNTER 2016-05-12 09:55 | Inpatient (IN) | payer OTHER ==
[~2016-05-12] VITALS: Ht 154.9 cm; Wt 103.4 kg
[~2016-05-12 09:55] MED LIST changes: +LOVENOX40 MG/0.1 SC; +OXYCODONE HCL10 M2 PO; +OXYCODONE HCL5 M1 PO; +OXYCONTIN30 M1 PO; +TYLENOL325 M1 PO
--- NOTE | 2016-05-12 10:02 | ED UPPER/LOWER EXTREMITY COMPL ---
History of Present Illness General Chief Complaint: Lower Extremity Problems Stated Complaint: BIBA, SIB KLOUSER FOR STAPH INFECTION, TO GO TO OR Source: patient, old records Exam Limitations: no limitations Vital Signs & Intake/Output Vital Signs & Intake/Output Vital Signs Date Time Temp Pulse Resp B/P Pulse O2 O2 Flow FiO2 Ox Delivery Rate 05/13 0652 99.6 90 20 109/66 92 Room Air 05/12 1755 99.0 98 18 128/70 98 Nasal 2.0L Cannula 05/12 1455 98.9 100 18 138/72 98 Nasal 2.0L Cannula 05/12 1126 99.2 78 19 124/72 97 Room Air 05/12 1008 96 Room Air Room Air 05/12 0958 99.0 84 20 146/84 96 Room Air ED Intake and Output 05/13 0000 05/12 1200 Intake Total 950 Output Total 725 Balance 225 Intake, IV 150 Intake, Oral 800 Output, 75 Drainage Output, Urine 650 Patient 228 lb 210 lb Weight Allergies Coded Allergies: ciprofloxacin (From Cipro) (Intermediate, HIVES 09/02/15) Penicillins (04/18/16) adhesive tape (UNKNOWN 09/02/15) diphenhydramine (UNKNOWN 09/02/15) Triage Nurses Notes Reviewed? yes Onset: Abrupt Duration: day(s):, constant Timing: recent history Severity: severe Pain/Injury Location: Right: Knee. No Modifying Factors: none HPI: 55-year-old female that had a complete right knee replacement done on April [address] Nieves comes in the emergency room with right knee pain and swelling and a positive culture for staph aureus. Patient was having some pain and swelling to the area and Dr. Nieves did a tap of her knee and it showed infection. He called ahead and told us that he plans on bringing the patient to the operating room today to do a complete washout of the right knee. Patient denies any fever chills vomiting. Sharp pain to right knee. Severe. Continuous. (ERNST TAPIA) Reconcile Medications Gabapentin (Neurontin) 100 MG CAPSULE 1 CAP PO QPM UNK (Reported) Lidocaine (Lidoderm) 5 % ADH..PATCH 1 PATCH EXT DAILY PRN PAIN (Reported) Melatonin 3 MG TABLET 1 TAB PO QPM SLEEP (Reported) Nitrofurantoin Monohyd/M-Cryst (Macrobid 100 MG Capsule) 100 MG CAPSULE 1 TAB PO QOD PROPHO UTI (Reported) Omeprazole 20 MG TABLET.DR 1 TAB PO DAILY ACID REFLUX (Reported) Oxycodone HCl 10 MG TABLET 10 MG PO Q4P PRN PAIN SCALE 4-6 (MODERATE) Oxycodone HCl 5 MG TABLET 15 MG PO Q4P PRN PAIN SCALE 7-10 (SEVERE) Oxycodone HCl (Oxycontin) 30 MG TAB.ER.12H 1 TAB PO BID PAIN Oxycodone HCl/Acetaminophen (Oxycodone-Acetaminophen 10-325) 10 MG-325 MG TABLET 1 TAB PO BID PAIN (Reported) Oxycodone HCl/Acetaminophen (Percocet 10-325 MG Tablet) 10 MG-325 MG TABLET 2 TAB PO Q6P PRN PAIN (Reported) Oxycodone HCl/Acetaminophen (Percocet 10-325 MG Tablet) 10 MG-325 MG TABLET 1 TAB PO Q4 HRS NEEDED PRN PAIN (Reported) Prochlorperazine Maleate (Compazine) 10 MG TABLET 1 TAB PO Q8 PRN N/V ( Reported) Sennosides (Senna) 8.6 MG TABLET 2 TAB PO DAILY CONSTIPATION (Reported) (DAREK MARTINEZ,KAREN) Past History Travel History Traveled to [place] past 21 day No Medical History Any Pertinent Medical History? 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 No (ERNST TAPIA) Review of Systems Review of Systems Constitutional: Reports: see HPI. EENTM: Reports: no symptoms. Respiratory: Reports: no symptoms. Cardiovascular: Reports: no symptoms. Gastrointestinal/Abdominal: Reports: no symptoms. Genitourinary: Reports: no symptoms. Musculoskeletal: Reports: see HPI. Skin: Reports: see HPI. Neurological/Psychological: Reports: no symptoms. Hematologic/Endocrine: Reports: no symptoms. Immunological: Reports: no symptoms. All Other Systems: Reviewed and Negative (ERNST TAPIA) Physical Exam Physical Exam General Appearance: well developed/nourished, mild distress Head: atraumatic Eyes: Bilateral: normal appearance. Ears, Nose, Throat: normal ENT inspection, hearing grossly normal Neck: normal inspection Cardiovascular/Respiratory: regular rate/rhythm, no respiratory distress Back: normal inspection Knee Right: swelling, tenderness, soft tissue tenderness, limited range of motion, erythema, warmth, discharge Neurologic/Tendon: normal sensation, normal motor functions, normal tendon functions, responds to pain, no evidence tendon injury, no pulse deficit Skin: intact, normal color, warm/dry Lymphatic: no anterior cervical gideon (ERNST TAPIA) Progress Differential Diagnosis: cellulitis, contusion, dislocation, fracture, gout, septic arthritis, sprain, tendon injury Plan of Care: Orders Procedure Date/time Status PHOSPHORUS 05/13 0600 Active MAGNESIUM 05/13 0600 Active CBC WITHOUT DIFFERENTIAL 05/13 06 Active BASIC ELECTROLYTES PLUS BUN&CR 05/13 0600 Active Regular Diet 05/12 D Active OXYGEN SETUP (GEN) 05/12 1600 Complete Patient Data 05/12 1534 Active Wound Care/Dressing 05/12 1524 Active Turn and Reposition 05/12 1524 Active Drains/Tubes 05/12 1524 Active Device(s) 05/12 1524 Active Vital Signs 05/12 1522 Complete Teach/Educate 05/12 1522 Active Pain Treatment and Response 05/12 1522 Active Nutritional Intake, Monitor 05/12 1522 Active Isolation 05/12 1522 Active Intake & Output 05/12 1522 Complete Patient Care Conference 05/12 1522 Active Activity/Ambulation 05/12 1522 Complete PT Evaluate & Treat 05/12 1508 Active Occupational Tx Eval & Treat 05/12 1508 Active VTE Mechanical Prophylaxis 05/12 1508 Active Vital Signs 05/12 1508 Active Intake & Output 05/12 1508 Active Activity/Ambulation 05/12 1508 Active Code Status 05/12 1356 Active TRANSFER ORDERS 05/12 1342 Complete EXTREMETIES OR SPEC 05/12 1252 Active PATHOLOGY SPECIMEN 05/12 1252 Active FingerStick- Glucose 05/12 1130 Complete Intake & Output 05/12 1008 Complete BLOOD CULTURE 05/12 1003 Active PARTIAL THROMBOPLASTIN TIME 05/12 1003 Complete PROTHROMBIN TIME 05/12 1003 Complete WESTERGREN SED RATE 05/12 1003 Complete C-REACTIVE PROTEIN 05/12 1003 Complete COMPREHENSIVE METABOLIC PANEL 05/12 1003 Complete CBC WITHOUT DIFFERENTIAL 05/12 1003 Complete EKG 05/12 1003 Active Admit to inpatient 05/12 UNK Active Nursing Misc 05/12 UNK Active Current Medications Sig/Yousuf Start time Last Medication Dose Stop Time Status Admin Apixaban 2.5 MG BID 05/13 1000 AC (Eliquis) Polyethylene Glycol 17 GM DAILY 05/13 1000 AC (Miralax) Rifampin 150 MG DAILY 05/13 1000 CAN (Rifampin 150MG Cap) Ondansetron HCl 4 MG Q6P PRN 05/12 1515 AC (Zofran) Oxycodone HCl 10 MG Q4 HRS NEEDED PRN 05/12 1515 AC (Roxicodone) Bisacodyl 10 MG DAILY PRN 05/12 1400 AC (Dulcolax Supp) Lidocaine 1 PAT DAILY PRN 05/12 1345 AC (Lidoderm) Laboratory Tests 05/13/16 0635: Sodium Pending, Potassium Pending, Chloride Pending, Carbon Dioxide Pending, Anion Gap Pending, BUN Pending, Creatinine Pending, BUN/Creatinine Ratio Pending , Phosphorus Pending, Magnesium Pending, CBC w Diff Pending, WBC Pending, RBC Pending, Hgb Pending, Hct Pending, MCV Pending, MCH Pending, RDW Pending, Plt Count Pending, MPV Pending, PUBS MCHC Pending 05/12/16 1055: Anion Gap 13, Estimated GFR > 60, BUN/Creatinine Ratio 18.3, Glucose 95, Calcium 9.5, Total Bilirubin 0.5, AST 23, ALT 30, Alkaline Phosphatase 98, C-Reactive Prot, Quant > 9.0 H, Total Protein 7.3, Albumin 3.3 L, Globulin 4.0, Albumin/ Globulin Ratio 0.8 L, PT 14.4 H, INR 1.38 H, APTT 35, CBC w Diff NO MAN DIFF REQ, RBC 4.24, MCV 81.6, MCH 26.3 L, RDW 14.8 H, MPV 7.5, Gran % 80.9 H, Lymphocytes % 13.2 L, Monocytes % 4.8, Eosinophils % 0.8, Basophils % 0.3, Absolute Granulocytes 11.6 H, Absolute Lymphocytes 1.9, Absolute Monocytes 0.7 H, Absolute Eosinophils 0.1, Absolute Basophils 0, PUBS MCHC 32.2 L, ESR Westergren 104 H Microbiology 05/12 1226 EXTREMITIE: Gross Specimen Examination - RECD 05/12 1226 EXTREMITIE: Gram Stain - RECD 05/12 1100 BLOOD: Blood Culture - RECD 05/12 1055 BLOOD: Blood Culture - RECD Initial ED EKG: normal intervals, normal p-waves, normal QRS complex, normal sinus rhythm, rate (73) (ERNST TAPIA) Departure Departure Disposition: STILL A PATIENT Condition: Stable Clinical Impression Primary Impression: Septic joint of right knee joint Secondary Impressions: Postoperative infection of knee Referrals: LISETTE MARTINEZ,DIDIER Pang (PCP/Family) Departure Forms: Customer Survey General Discharge Information OR/GI Note Spoke With: VANESSA MARTINEZ,[facility] Treatment Decision: ANN VALDES T requires urgent operative management or an emergent procedure that cannot be performed in the Emergency Room setting. Spoke with Dr. nieves. Patient requires a surgical wash out. The patient is going directly to or. Transport To: [facility] (ERNST TAPIA) PA/FOOD WRITER Co-Sign Statement Statement: ED Attending supervision documentation- [] I saw and evaluated the patient. I have also reviewed all the pertinent lab results and diagnostic results. I agree with the findings and the plan of care as documented in the PA's/FOOD WRITER's documentation. [X] I have reviewed the ED Record and agree with the PA's/FOOD WRITER's documentation. [] Additions or exceptions (if any) to the PAs/FOOD WRITER's note and plan are summarized below: [] (DAREK MARTINEZ,KAREN) Critical Care Note Critical Care Note Critical Care Time: 30-74 min (ERNST TAPIA)
--- NOTE | 2016-05-12 10:07 | NUR ---
Informed waiting has been performed.
--- NOTE | 2016-05-12 10:07 | NUR ---
PT EMILIANA FROM [facility] FOR ADMISSION TO OR FOR WASH OUT OF WOUND INFECTION S/P R KNEE REPLACEMENT 04/26/2016. HAS HAD PAIN SINCE SX. HAD CULTURE OF WOUND DONE IN MD OFFICE SATURDAY WHICH IS REPORTED TO BE +STAPH AUREUS. PT TEARFUL R/T PAIN AND NERVOUSNESS. NOEL HENRIQUEZ INTO EVALUATE PATIENT ON ARRIVAL TO ER.
[2016-05-12] MEDS ORDERED: OXYCODONE-ACET1 EAC1 PO (10:14)
[2016-05-12] MEDS ORDERED: PERCOCET 10-321 EACH PO ×2 (10:15→10:18)
[2016-05-12] MEDS ORDERED: COMPAZINE10 M1 PO (10:19)
[2016-05-12] MEDS ORDERED: MELATONIN3 M4 PO (10:20)
[2016-05-12] MEDS ORDERED: NEURONTIN100 M1 PO (10:21)
[2016-05-12] MEDS ORDERED: OMEPRAZOLE20 M3 PO (10:22)
--- NOTE | 2016-05-12 10:41 | History & Physical ---
General Information and HPI MD Statement: I have seen and personally examined ANN VALDES and documented this H&P. The patient is a 55 year old F who presented with a patient stated chief complaint of []. Source of Information: patient Exam Limitations: no limitations History of Present Illness: Patient is a 55 year old female POD #16 s/p right TKR by Dr. Gomez. She was discharged to [facility] after an uneventful hospital course. She states her pain never improved over the course of the last 16 days and approximately 1 week ago, the lower portion of her incision started to drain. She saw Dr. Gomez in the office where he drained it, cultures returned as staph aureus. She presented to the emergency room for a washout. Allergies/Medications Allergies: Coded Allergies: ciprofloxacin (From Cipro) (Intermediate, HIVES 09/02/15) Penicillins (04/18/16) adhesive tape (UNKNOWN 09/02/15) diphenhydramine (UNKNOWN 09/02/15) Home Med list Enoxaparin Sodium (Lovenox) 40 MG/0.4 ML SYRINGE 0.4 ML SC DAILY DVT PROPHYLAXSIS Gabapentin (Neurontin) 100 MG CAPSULE 1 CAP PO QPM UNK (Reported) Lidocaine (Lidoderm) 5 % ADH..PATCH 1 PATCH EXT DAILY PRN PAIN (Reported) Melatonin 3 MG TABLET 1 TAB PO QPM SLEEP (Reported) Nitrofurantoin Monohyd/M-Cryst (Macrobid 100 MG Capsule) 100 MG CAPSULE 1 TAB PO QOD PROPHO UTI (Reported) Omeprazole 20 MG TABLET.DR 1 TAB PO DAILY ACID REFLUX (Reported) Oxycodone HCl 10 MG TABLET 10 MG PO Q4P PRN PAIN SCALE 4-6 (MODERATE) Oxycodone HCl 5 MG TABLET 15 MG PO Q4P PRN PAIN SCALE 7-10 (SEVERE) Oxycodone HCl (Oxycontin) 30 MG TAB.ER.12H 1 TAB PO BID PAIN Oxycodone HCl/Acetaminophen (Oxycodone-Acetaminophen 10-325) 10 MG-325 MG TABLET 1 TAB PO BID PAIN (Reported) Oxycodone HCl/Acetaminophen (Percocet 10-325 MG Tablet) 10 MG-325 MG TABLET 2 TAB PO Q6P PRN PAIN (Reported) Oxycodone HCl/Acetaminophen (Percocet 10-325 MG Tablet) 10 MG-325 MG TABLET 1 TAB PO Q4 HRS NEEDED PRN PAIN (Reported) Prochlorperazine Maleate (Compazine) 10 MG TABLET 1 TAB PO Q8 PRN N/V ( Reported) Sennosides (Senna) 8.6 MG TABLET 2 TAB PO DAILY CONSTIPATION (Reported) Past History Travel History Traveled to [place] past 21 day No Medical History Neurological: NONE EENT: NONE Cardiovascular: aortic aneurysm Respiratory: NONE Gastrointestinal: GERD Hepatic: NONE Renal: nephrolithiasis, RENAL ARTERY ANEURYSM Musculoskeletal: CHRONIC BACK PAIN Psychiatric: NONE Endocrine: NONE Blood Disorders: NONE Cancer(s): NONE GRANT WRITER/Reproductive: NONE History of MRSA: No History of VRE: No History of CDIFF: No Surgical History Surgical History: hysterectomy, BACK SURGERY BLADDER LIFT, SHOULDER SURGERY, RT TKR BUNIONECTOMY BOLTH FEET Past Family/Social History Psychosocial History ETOH Use: occasional use Illicit Drug Use: denies illicit drug use Review of Systems Review of Systems Constitutional: Reports: chills, fever, malaise. Exam & Diagnostic Data Last 24 Hrs of Vital Signs/I&O Vital Signs Date Time Temp Pulse Resp B/P Pulse O2 O2 Flow FiO2 Ox Delivery Rate 05/12 1008 96 Room Air Room Air 05/12 0958 99.0 84 20 146/84 96 Room Air Intake & Output 05/12 1600 05/12 0800 05/12 0000 Intake Total Output Total Balance Patient 210 lb Weight Physical Exam General Appearance Alert, Oriented X3, Cooperative Cardiovascular Normal S1, Normal S2, No Murmurs Lungs Clear to Auscultation, Normal Air Movement Abdomen Normal Bowel Sounds, Soft, No Tenderness Extremities right knee incision with distal 1/3 with maceration and cloudy serous drainage. Tender to palpation and erythema around incision. Sensation grossly intact. Palpable Dp pulse to right foot. Diminished ROM d/t pain. 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 AVSS at present. Plan: To OR for washout/polyexchange/vancomycin bead placement. NPO/IVF. Cultures to be obtained in OR. ID consultation. Will likely need PICC line. As Ranked By This Provider Problem List: 1. Septic joint of right knee joint Core Measures/Miscellaneous Acute Coronary Syndrome ACS Diagnosis: No Cerebrovascular Accident CVA/TIA Diagnosis: No Congestive Heart Failure CHF Diagnosis: No Venous Thromboembolism VTE Risk Factors: Age > 40, Surgery No Mech VTE prophylaxis d/t: No contraindications No VTE Pharm Prophylaxis d/t: No contraindications VTE Diagnosis: No VTE Type: NONE VTE Confirmed by (Test): NONE Severe Sepsis Severe Sepsis Present: No Septic Shock Septic Shock Present: No Miscellaneous Documentation Attending Case Discussed With: Dr. Gomez Primary Care Physician: DIDIER KNOX MD Patient sees these Specialists n/a Level of Patient Care: General Surgical
--- NOTE | 2016-05-12 10:59 | NUR ---
PT CHANGED INTO HOSPITAL GOWN PRE OP SCRUB COMPLETED IV ACCESS ESTABLISHED, #20 RAC LABS WITH 1ST SET B/C DRAWN/SENT.
[2016-05-12 11:07] LABS: ABSOLUTE BASOPHIL COUNT 0 /CUMM (0.0-0.2); ABSOLUTE EOSINOPHIL COUNT 0.1 /CUMM (0.0-0.7); ABSOLUTE GRANULOCYTE CT 11.6 /CUMM (1.4-6.5); ABSOLUTE LYMPH COUNT 1.9 /CUMM (1.2-3.4); ABSOLUTE MONOCYTE COUNT 0.7 /CUMM (0.10-0.60); BASOPHIL % 0.3 % (0.0-2.0); EOSINOPHIL % 0.8 % (0-5); GRANULOCYTE % 80.9 % (42.2-75.2); HEMATOCRIT 34.6 % (37-47); MEAN CORPUSCULAR HGB 26.3 PG (27.0-31.0); MEAN CORPUSCULAR HGB CONC 32.2 G/DL (33.0-37.0); MEAN CORPUSCULAR VOLUME 81.6 FL (81.0-99.0); MEAN PLATELET VOLUME 7.5 FL (7.4-10.4); PLATELET COUNT 651 /CUMM (130-400); RBC DISTRIBUTION WIDTH 14.8 % (11.5-14.5); RED BLOOD CELL CT 4.24 /CUMM (4.20-5.40); WHITE BLOOD CELL COUNT 14.4 /CUMM (4.8-10.8)
[2016-05-12 11:20] LABS: PT 14.4 SEC (9.4-12.5); PTT 35 SEC (25-37)
--- NOTE | 2016-05-12 11:37 | NUR ---
PT TRANSPORTED TO OR AT THIS TIME OR PREOP SHEET COMPLETED.
--- NOTE | 2016-05-12 13:37 | Operative Report ---
Operative/Inv Procedure Report Surgery Date: 05/12/16 Name of Procedure: Right knee irrigation and debridement, polyethylene liner exchange, placement of resorbable antibiotic beads. Pre-Operative Diagnosis: Right infected total knee arthroplasty Post-Operative Diagnosis: Right infected total knee arthroplasty Estimated Blood Loss: 200 mL Surgeon/Senior Procurement Specialist: Juan Francisco COHEN Anesthesia: laryngeal mask airway Implants: 3-4 9 mm [employer] polyethylene liner. Drains: One Hemovac superficial and a second intracapsular Complications: None Condition: Stable to PACU Operative Indication: This is a 55-year-old female who underwent a right total knee arthroplasty 2 weeks ago. She was having wound drainage and pain. A knee aspirate was performed. It grew out Staphylococcus aureus. Risks and benefits of the procedure were discussed with the patient at length. Risks include but are not limited to nerve damage, muscle damage, infection, blood loss, blood clots, pulmonary embolus, and even . The patient agreed to the above risks and elected to proceed with surgery. Operative/Procedure Note Note: The patient was taken to the operating room. Anesthesia was induced after the timeout was performed. The lower extremity was prepped and draped in the normal sterile fashion. IV antibiotics were given prior to incision. The site marking was visualized prior to incision. After the leg was prepped and draped, an esmarch was used to exsanguinate the extremity. The tourniquet was inflated. A midline incision was made through the previous incision proximal to the patella extending down to the tibial tubercle. The wound was copiously irrigated with bacitracin irrigation. The capsule was opened up and the prior polyethylene liner was removed with a elevator. The knee was copiously irrigated. A synovectomy was performed. A total of 9 L was used to irrigate the knee. A new polyethylene liner was placed. Full range of motion was obtained. Dissolvable antibiotic beads had been created prior to the procedure. There were made with 1 g of vancomycin and 1.2 g of tobramycin. These were placed deep to the capsule. A drain was inserted deep in the wound and exited laterally. The capsule was then closed with #1 Vicryl suture in a simple interrupted fashion. Antibiotic beads were then placed superficial to the capsule. The skin was closed with 2-0 Vicryl suture and desire. A dry sterile dressing was placed and the patient was transferred to PACU in stable condition.
--- NOTE | 2016-05-12 14:21 | Cons- Infect Disease ---
General Information and HPI Consulting Request Date of Consult: 05/12/16 Requested By: ISABELA MENDEZ MD Reason for Consult: Infected right knee prosthesis Source of Information: patient, old records Exam Limitations: clinical condition History of Present Illness: This is a 55-year-old woman status post right total knee arthroplasty 16 days prior to admission for degenerative joint disease, with Clindamycin prophylaxis, discharged to a short-term rehabilitation, with postop course complicated by persistent pain since surgery and drainage from her incision, noted approximately one week prior to admission, with the culture reportedly positive for MSSA, admitted today for a right knee irrigation and debridement, with polyethylene liner exchange and placement of resorbable antibiotic beads, which was performed earlier today, with a perioperative dose of Vancomycin reportedly given. Presently she is being seen in the Recovery room and she is complaining of severe pain in the right knee. She is documented to have a Penicillin allergy, but she states she is only allergic to Ciprofloxacin. Allergies/Medications Allergies: Coded Allergies: ciprofloxacin (From Cipro) (Intermediate, HIVES 09/02/15) Penicillins (04/18/16) adhesive tape (UNKNOWN 09/02/15) diphenhydramine (UNKNOWN 09/02/15) Home Med List: Enoxaparin Sodium (Lovenox) 40 MG/0.4 ML SYRINGE 0.4 ML SC DAILY DVT PROPHYLAXSIS Gabapentin (Neurontin) 100 MG CAPSULE 1 CAP PO QPM UNK (Reported) Lidocaine (Lidoderm) 5 % ADH..PATCH 1 PATCH EXT DAILY PRN PAIN (Reported) Melatonin 3 MG TABLET 1 TAB PO QPM SLEEP (Reported) Nitrofurantoin Monohyd/M-Cryst (Macrobid 100 MG Capsule) 100 MG CAPSULE 1 TAB PO QOD PROPHO UTI (Reported) Omeprazole 20 MG TABLET.DR 1 TAB PO DAILY ACID REFLUX (Reported) Oxycodone HCl 10 MG TABLET 10 MG PO Q4P PRN PAIN SCALE 4-6 (MODERATE) Oxycodone HCl 5 MG TABLET 15 MG PO Q4P PRN PAIN SCALE 7-10 (SEVERE) Oxycodone HCl (Oxycontin) 30 MG TAB.ER.12H 1 TAB PO BID PAIN Oxycodone HCl/Acetaminophen (Oxycodone-Acetaminophen 10-325) 10 MG-325 MG TABLET 1 TAB PO BID PAIN (Reported) Oxycodone HCl/Acetaminophen (Percocet 10-325 MG Tablet) 10 MG-325 MG TABLET 2 TAB PO Q6P PRN PAIN (Reported) Oxycodone HCl/Acetaminophen (Percocet 10-325 MG Tablet) 10 MG-325 MG TABLET 1 TAB PO Q4 HRS NEEDED PRN PAIN (Reported) Prochlorperazine Maleate (Compazine) 10 MG TABLET 1 TAB PO Q8 PRN N/V ( Reported) Sennosides (Senna) 8.6 MG TABLET 2 TAB PO DAILY CONSTIPATION (Reported) Past History Travel History Traveled to [place] past 21 day No Medical History Neurological: NONE EENT: NONE Cardiovascular: aortic aneurysm Respiratory: NONE Gastrointestinal: GERD Hepatic: NONE Renal: nephrolithiasis, RENAL ARTERY ANEURYSM Musculoskeletal: CHRONIC BACK PAIN Psychiatric: NONE Endocrine: NONE Blood Disorders: NONE Cancer(s): NONE 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 History of MRSA: No History of VRE: No History of CDIFF: No Surgical History Surgical History: hysterectomy, knee replacement (right knee), BACK SURGERY BLADDER LIFT, SHOULDER SURGERY, BUNIONECTOMY BOLTH FEET Psychosocial History ETOH Use: occasional use Illicit Drug Use: denies illicit drug use Review of Systems Review of Systems All Other Systems: Reviewed and Negative Exam & Diagnostic Data Last 24 Hrs of Vital Signs/I&O Vital Signs Date Time Temp Pulse Resp B/P Pulse O2 O2 Flow FiO2 Ox Delivery Rate 05/12 1126 99.2 78 19 124/72 97 Room Air 05/12 1008 96 Room Air Room Air 05/12 0958 99.0 84 20 146/84 96 Room Air Intake & Output 05/12 1600 05/12 0800 05/12 0000 Intake Total Output Total Balance Patient 210 lb Weight Physical Exam Other Physical Findings: She is lethargic but arousable in moderate to severe distress secondary to pain. She is afebrile. Skin reveals no rash. HEENT exam is negative. Neck is supple with no adenopathy. Lungs are clear. Heart regular rhythm with no murmur. Abdomen is soft, nontender with positive bowel sounds. Back no CVA tenderness. Extremities right knee dressing intact with drain in place. Neuro is without focality. Last 24 Hours of Lab Results: Laboratory Tests 05/12 1055 Chemistry Sodium (137 - 145 mmol/L) 139 Potassium (3.5 - 5.1 mmol/L) 4.6 Chloride (98 - 107 mmol/L) 101 Carbon Dioxide (22 - 30 mmol/L) 25 Anion Gap (5 - 16) 13 BUN (7 - 17 mg/dL) 11 Creatinine (0.5 - 1.0 mg/dL) 0.6 Estimated GFR (>60 ml/min) > 60 BUN/Creatinine Ratio (7 - 25 %) 18.3 Glucose (65 - 99 mg/dL) 95 Calcium (8.4 - 10.2 mg/dL) 9.5 Total Bilirubin (0.2 - 1.3 mg/dL) 0.5 AST (14 - 36 U/L) 23 ALT (9 - 52 U/L) 30 Alkaline Phosphatase (<127 U/L) 98 C-Reactive Prot, Quant (<1.0 mg/dL) > 9.0 H Total Protein (6.3 - 8.2 g/dL) 7.3 Albumin (3.5 - 5.0 g/dL) 3.3 L Globulin (1.9 - 4.2 gm/dL) 4.0 Albumin/Globulin Ratio (1.1 - 2.2 %) 0.8 L Coagulation PT (9.4 - 12.5 SEC) 14.4 H INR (0.90 - 1.19) 1.38 H APTT (25 - 37 SEC) 35 Hematology CBC w Diff NO MAN DIFF REQ WBC (4.8 - 10.8 /CUMM) 14.4 H RBC (4.20 - 5.40 /CUMM) 4.24 Hgb (12.0 - 16.0 G/DL) 11.1 L Hct (37 - 47 %) 34.6 L MCV (81.0 - 99.0 FL) 81.6 MCH (27.0 - 31.0 PG) 26.3 L RDW (11.5 - 14.5 %) 14.8 H Plt Count (130 - 400 /CUMM) 651 H MPV (7.4 - 10.4 FL) 7.5 Gran % (42.2 - 75.2 %) 80.9 H Lymphocytes % (20.5 - 51.1 %) 13.2 L Monocytes % (1.7 - 9.3 %) 4.8 Eosinophils % (0 - 5 %) 0.8 Basophils % (0.0 - 2.0 %) 0.3 Absolute Granulocytes (1.4 - 6.5 /CUMM) 11.6 H Absolute Lymphocytes (1.2 - 3.4 /CUMM) 1.9 Absolute Monocytes (0.10 - 0.60 /CUMM) 0.7 H Absolute Eosinophils (0.0 - 0.7 /CUMM) 0.1 Absolute Basophils (0.0 - 0.2 /CUMM) 0 PUBS MCHC (33.0 - 37.0 G/DL) 32.2 L ESR Westergren (0 - 20 MM) 104 H Last 24 Hours of Titus Results: Blood cultures May 12 pending OR culture labeled right knee pending Assessment/Plan Assessment/Plan Impression: This is a 55-year-old woman status post right knee arthroplasty 16 days prior to admission admitted today for irrigation and debridement and exchange of the polyethylene liner because of drainage from the incision noted approximately one week prior to admission. Her clinical picture is suggestive of a prosthetic joint infection, and she will likely require a prolonged course (2 to 6 weeks) of IV antibiotics, followed by a more prolonged course of oral antibiotics. The hardware was left in place, which could make eradication of the infection more difficult but, as the initial surgery was only 2 weeks ago, she should be able to clear her infection with antibiotics. Her antibiotic allergies should be clarified in order to optimize her antibiotic regimen. Suggestion: 1. Clarify her antibiotic allergies 2. Follow-up OR cultures 3. Begin Cefazolin 2 g IV every 8 hours and Rifampin 450 mg po every 12 hours Consult Acknowledgment - Thank you for your consult request.
[2016-05-12 14:55] VITALS: BP 138/72
[2016-05-12 17:55] VITALS: BP 128/70
--- NOTE | 2016-05-12 22:32 | NUR ---
PT IV LEAKING. SEVERAL ATTEMPTS AT THIS TIME WERE UNSUCCESSFUL TO PLACE NEW IV. SUPERVISOR ALTERATION WORKROOM ADVISED AND WILL ATTEMPT. PT HAS NOT BEEN ON OVEN TENDER BAGELS FOR OVER AN HOUR. SPOKE WITH ROSETTA IN SURGICAL WHO CONFIRMED OKAT TO ADMINISTER ORAL ROXICODONE.
--- NOTE | 2016-05-12 23:01 | NUR ---
SPOKE WITH SURGICAL PA AND ADVISED THAT ALL ATTEMPTS TO PLACE AN IV LINE HAVE GONE UNSUCCESSFUL THUS FAR. SURG PA WILL COME UP TO ASSESS AFTER SHE ISOUT OF THE OR.
--- NOTE | 2016-05-12 23:14 | NUR ---
PT VERY UPSET AT THIS TIME. MST UNABLE TO TAKE PT VITAL SIGNS. PT WAS CRYING AND WANTED EVERYONE OUT OF HER ROOM WITH THE LIGHT OFF. PT STATED HSE HASN'T SLEPT IN A FEW DAYS AND SHE CAN NOT HANDLE THE PAIN. WILL MAKE ANOTHER ATTEMPT TO TAKE VS ONCE PT PAIN MORE CONTROLLED.
--- NOTE | 2016-05-13 03:16 | PN- Orthopedic ---
See Addendum Subjective Subjective: POST OP CHECK (Late Entry) Patient complaining of pain to right leg, relieved with IV Dilaudid SUPERVISOR DRY PASTE. No complaints of CP/SOB, N/V, F/C. Voiding via elias catheter. Yet to ambulate. Objective Vital Signs and I&Os Vital Signs Date Time Temp Pulse Resp B/P Pulse O2 O2 Flow FiO2 Ox Delivery Rate 05/12 1755 99.0 98 18 128/70 98 Nasal 2.0L Cannula 05/12 1455 98.9 100 18 138/72 98 Nasal 2.0L Cannula 05/12 1126 99.2 78 19 124/72 97 Room Air 05/12 1008 96 Room Air Room Air 05/12 0958 99.0 84 20 146/84 96 Room Air Intake & Output 05/13 0800 05/13 0000 05/12 1600 05/12 0800 05/12 0000 05/11 1600 Intake Total 600 Output Total 425 Balance 175 Intake, Oral 600 Output, 75 Drainage Output, Urine 350 Patient 228 lb Weight Physical Exam: Gen: AAOx3 in NAD Cor: S1+S2+ Lungs: CTA tere Abd: soft, NT, ND, +BS x4 Ext: right lower extremity examined. Thigh and calf compartment soft. Palpable DP/PT pulse. Foot warm. Dorsiflexion and plantar flexion intact. Sensation grossly intact. Dressing to right leg without strike through. JAMES/HS drains in place with serosanguinous drainage. CPM machine in place. Current Medications: Current Medications Sig/Yousuf Start time Last Medication Dose Route Stop Time Status Admin Apixaban 2.5 MG BID 05/13 1000 AC PO Bisacodyl 10 MG DAILY PRN 05/12 1400 AC TN Cefazolin Sodium 2 GM IQ8 05/12 1600 AC 05/13 N/A 1 UNIT IV 05/13 1559 0110 Dextrose/Sodium 1,000 ML Q13H 05/12 1515 AC 05/12 Chloride IV 1510 Docusate Sodium 100 MG TID 05/12 1600 AC 05/12 PO 2100 Gabapentin 100 MG QPM 05/12 2200 AC 05/12 PO 2100 Hydromorphone HCl 2 MG .STK-MED ONE 05/12 1411 DC IM 05/12 1412 Hydromorphone HCl 50 MG Q24H PRN 05/12 1400 AC 05/12 Sodium Chloride 45 ML IV 1512 Hydromorphone HCl 2 MG .STK-MED ONE 05/12 1349 DC IM 05/12 1350 Lidocaine 1 PAT DAILY PRN 05/12 1345 AC EXT Melatonin 3 MG QPM 05/12 2200 AC 05/12 PO 2100 Omeprazole 20 MG DAILY AC 05/13 0700 AC PO Ondansetron HCl 4 MG Q6P PRN 05/12 1515 AC IV Oxycodone HCl 30 MG 0000,1200 05/13 0000 AC 05/12 PO 2357 Oxycodone HCl 30 MG BID 05/12 2300 DC PO Oxycodone HCl 10 MG Q4 HRS NEEDED PRN 05/12 1515 AC PO Oxycodone HCl 15 MG Q4 HRS NEEDED PRN 05/12 1515 AC 05/12 PO 2242 Polyethylene Glycol 17 GM DAILY 05/13 1000 AC PO Rifampin 150 MG DAILY 05/13 1000 UNVr PO Rifampin 450 MG Q12 05/13 0309 UNVr PO Senna 187 MG BID 05/12 2200 AC 05/12 PO 2100 Results Last 48 Hours of Labs: Laboratory Tests 05/12 1055 Chemistry Sodium (137 - 145 mmol/L) 139 Potassium (3.5 - 5.1 mmol/L) 4.6 Chloride (98 - 107 mmol/L) 101 Carbon Dioxide (22 - 30 mmol/L) 25 Anion Gap (5 - 16) 13 BUN (7 - 17 mg/dL) 11 Creatinine (0.5 - 1.0 mg/dL) 0.6 Estimated GFR (>60 ml/min) > 60 BUN/Creatinine Ratio (7 - 25 %) 18.3 Glucose (65 - 99 mg/dL) 95 Calcium (8.4 - 10.2 mg/dL) 9.5 Total Bilirubin (0.2 - 1.3 mg/dL) 0.5 AST (14 - 36 U/L) 23 ALT (9 - 52 U/L) 30 Alkaline Phosphatase (<127 U/L) 98 C-Reactive Prot, Quant (<1.0 mg/dL) > 9.0 H Total Protein (6.3 - 8.2 g/dL) 7.3 Albumin (3.5 - 5.0 g/dL) 3.3 L Globulin (1.9 - 4.2 gm/dL) 4.0 Albumin/Globulin Ratio (1.1 - 2.2 %) 0.8 L Coagulation PT (9.4 - 12.5 SEC) 14.4 H INR (0.90 - 1.19) 1.38 H APTT (25 - 37 SEC) 35 Hematology CBC w Diff NO MAN DIFF REQ WBC (4.8 - 10.8 /CUMM) 14.4 H RBC (4.20 - 5.40 /CUMM) 4.24 Hgb (12.0 - 16.0 G/DL) 11.1 L Hct (37 - 47 %) 34.6 L MCV (81.0 - 99.0 FL) 81.6 MCH (27.0 - 31.0 PG) 26.3 L RDW (11.5 - 14.5 %) 14.8 H Plt Count (130 - 400 /CUMM) 651 H MPV (7.4 - 10.4 FL) 7.5 Gran % (42.2 - 75.2 %) 80.9 H Lymphocytes % (20.5 - 51.1 %) 13.2 L Monocytes % (1.7 - 9.3 %) 4.8 Eosinophils % (0 - 5 %) 0.8 Basophils % (0.0 - 2.0 %) 0.3 Absolute Granulocytes (1.4 - 6.5 /CUMM) 11.6 H Absolute Lymphocytes (1.2 - 3.4 /CUMM) 1.9 Absolute Monocytes (0.10 - 0.60 /CUMM) 0.7 H Absolute Eosinophils (0.0 - 0.7 /CUMM) 0.1 Absolute Basophils (0.0 - 0.2 /CUMM) 0 PUBS MCHC (33.0 - 37.0 G/DL) 32.2 L ESR Westergren (0 - 20 MM) 104 H Assessment/Plan Assessment/Plan A: 55 year old female POD #16 s/p R TKR admitted with PJI now s/p right knee washout/polyexchange/vanco bead placement. AVSS Plan: Continue Ancef and Rifampin PO. PT/OT eval in am. Continue CPM machine 0-60 for now, can increase up to 90 degrees of flexion if patient tolerates. Pain management with SUPERVISOR DRY PASTE for now. Will likely need to wean off tomorrow. F/U am labwork. Aggressive bowel regimen ordered. Core Measures/Miscellaneous Venous Thromboembolism VTE Risk Factors: Age > 40, Surgery, Trauma major or lower ext VTE Contraindications: No Contraindications VTE Diagnosis: No VTE Type: NONE VTE Confirmed by (Test): NONE Beta Aramis Is Beta Aramis a Home Med? No Antibiotics Is Patient on Antibiotics? Yes
--- NOTE | 2016-05-13 05:02 | NUR ---
PT PAIN A 10 OUT OF 10. PT CRYING AND UNCONSOLABLE. CALLED & SPOKE WITH PHARMACY AND SURGICAL PA AND AGREED THAT PT CAN BE RESTARTED ON PSYCHIATRIC THERAPIST PUMP.
--- NOTE | 2016-05-13 06:51 | PN- Student ---
DENNIS MCGRAW 05/13/16 0636: Subjective Subjective: Patient reports constant intense pain in her knee, hands, abdomen, ribs, and "all over." She denied any chest pain, shortness of breath, nausea, vomiting, or numbness/tingling in her feet. She was unable to provide an abundance of information due to pain that she states is a 20 and not controlled by the dilauded dog catcher. Patient reports she does not want anyone to ask "how she is" today. Objective Objective: Vitals: B/P:128/70 Pulse: 98 Resp: 18 Temp: 99.0f SpO2:98% Physical Exam: General: Patient appears uncomfortable. Patient constantly moaning and angry. Alert and oriented to person place time and event. Head: Normocephalic, atraumatic. Eyes: PERRL, EOMI. Cardiac: Regular rate and rhythm, normal s1/s2, no murmurs, rubs or gallops. Pulmonary: Clear to ausculation bilaterally. No rhonchi, wheezes, or rales. Abdomen: Bruising on lower abdomen from lovenox injects. Patient not agreeable to full exam at this time. Extremities: Right leg covered by bandage and in electronic range of motion device. 2 drains have minimal serosanguinous fluid. Results Results: Laboratory Tests 05/12/16 1055: Anion Gap 13, Estimated GFR > 60, BUN/Creatinine Ratio 18.3, Glucose 95, Calcium 9.5, Total Bilirubin 0.5, AST 23, ALT 30, Alkaline Phosphatase 98, C-Reactive Prot, Quant > 9.0 H, Total Protein 7.3, Albumin 3.3 L, Globulin 4.0, Albumin/ Globulin Ratio 0.8 L, PT 14.4 H, INR 1.38 H, APTT 35, CBC w Diff NO MAN DIFF REQ, RBC 4.24, MCV 81.6, MCH 26.3 L, RDW 14.8 H, MPV 7.5, Gran % 80.9 H, Lymphocytes % 13.2 L, Monocytes % 4.8, Eosinophils % 0.8, Basophils % 0.3, Absolute Granulocytes 11.6 H, Absolute Lymphocytes 1.9, Absolute Monocytes 0.7 H, Absolute Eosinophils 0.1, Absolute Basophils 0, PUBS MCHC 32.2 L, ESR Westergren 104 H Microbiology 03/11 1226 EXTREMITIE: Gross Specimen Examination - RECD 05/12 1226 EXTREMITIE: Gram Stain - RECD 05/12 1100 BLOOD: Blood Culture - RECD 05/12 1055 BLOOD: Blood Culture - RECD Assessment/Plan Assessment: Patient is a 55 year old female with a history of osteoarthritis of the right knee, chronic pain, GERD, and HTN that is POD#17 on hospital readmission day 1 s /p total right knee replacement complicated by wound infection. Plan: -Continue ancef and rifampin as directed by ID. -Continue dilauded dog catcher. -Continue physical therapy exercises. -Continue regular diet. -Continue ALPs, out of bed ambulation, and eliquis for DVT prophylaxis. -Follow up on pending am labs. -Repeat assessment when pain medication is effective. Will discuss above with PA surgical team. Dennis COHEN-S2 LATOYA COHEN,GISELLA 05/13/16 1328: Assessment/Plan Assessment: Pt seen by Dr Gomez later in the day. 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
[2016-05-13 06:52] VITALS: BP 109/66
[2016-05-13 08:15] LABS: ABSOLUTE EOSINOPHIL COUNT 0 /CUMM (0.0-0.7); ABSOLUTE MONOCYTE COUNT 0.8 /CUMM (0.10-0.60); MEAN CORPUSCULAR HGB CONC 32.3 G/DL (33.0-37.0)
[2016-05-13 08:26] LABS: ABSOLUTE BASOPHIL COUNT 0 /CUMM (0.0-0.2); ABSOLUTE LYMPH COUNT 2.3 /CUMM (1.2-3.4); BASOPHIL % 0.2 % (0.0-2.0); EOSINOPHIL % 0.2 % (0-5); GRANULOCYTE % 82.5 % (42.2-75.2); MEAN CORPUSCULAR HGB 26.5 PG (27.0-31.0); MEAN CORPUSCULAR VOLUME 82.1 FL (81.0-99.0); MEAN PLATELET VOLUME 8.5 FL (7.4-10.4); PLATELET COUNT 557 /CUMM (130-400); RBC DISTRIBUTION WIDTH 14.4 % (11.5-14.5); RED BLOOD CELL CT 3.21 /CUMM (4.20-5.40); WHITE BLOOD CELL COUNT 18.2 /CUMM (4.8-10.8)
[2016-05-13 08:32] LABS: HEMATOCRIT 26.3 % (37-47)
[2016-05-13 10:00] VITALS: BP 110/62
--- NOTE | 2016-05-13 10:23 | PN- Orthopedic ---
Surgical Brief Attending Note Brief Attending Note: Resting in bed NAD AVSS RLE - dressing c/d/i +EHL/FHL A/P - POD 1 s/p right knee I+D, antibiotic bead placement, poly exchange -Her knee was tapped preop showing staph aureus growth intra-articularly -she states her cipro allergy is a develpment of thrush after 2 weeks of treatment -continue ABX per ID -continue CPM machine - may take break from CPM as needed -Pull drains tomorrow if low output -Continue PT -would like to try vicodin PO when CONCRETE BOOM PUMP OPERATOR is discontinued
[2016-05-13 15:17] VITALS: BP 118/70
--- NOTE | 2016-05-13 17:24 | NUR ---
NURSING NOTE: PT REQUESTED TO HAVE CPM MACHINE OFF FOR A SHORT TIME. PT JOSÉ MIGUEL WELL THROUGHOUT THE DAY. PT AGREEABLE TO HAVE BACK ON IN A COUPLE HOURS. WILL CONTINUE TO MONITR.
[2016-05-13 17:57] VITALS: BP 112/60
[2016-05-13 22:00] VITALS: BP 120/60
[2016-05-14 02:03] VITALS: BP 116/68
[2016-05-14 06:18] VITALS: BP 132/60
--- NOTE | 2016-05-14 06:21 | NUR ---
PT WITH TEMP OF 101.1. SURGICAL PA NOTIFIED
--- NOTE | 2016-05-14 07:04 | PN- Orthopedic ---
See Addendum Subjective Subjective: The patient was seen this morning postoperatively day #2. She still complains of significant pain despite current pain regiment. She has no issues or complaints at the current time. She did have a MAXIMUM TEMPERATURE of 101.1 earlier this morning for which she received Tylenol. Objective Vital Signs and I&Os Vital Signs Date Time Temp Pulse Resp B/P Pulse O2 O2 Flow FiO2 Ox Delivery Rate 05/14 0641 100.1 05/14 0630 101.1 05/14 0618 101.1 78 18 132/60 96 Room Air 05/14 0203 99.2 83 20 116/68 94 Room Air 05/13 2200 99.0 93 18 120/60 94 Room Air 05/13 1757 99.6 89 18 112/60 98 Room Air 05/13 1517 99.8 93 18 118/70 93 05/13 1000 98.9 92 18 110/62 93 Room Air Room Air 05/13 0800 93 Room Air Room Air Intake & Output 05/14 0800 05/14 0000 05/13 1600 05/13 0800 05/13 0000 05/12 1600 Intake Total 1000 1180 1400 1100 950 Output Total 1065 720 550 440 725 Balance -65 460 850 660 225 Intake, IV 600 300 600 600 150 Intake, Oral 400 880 800 500 800 Number 1 0 Bowel Movements Output, 65 70 140 75 Drainage Output, Urine 1000 650 550 300 650 Patient 228 lb Weight Physical Exam: Gen.: Alert and complaining of pain. Skin: Warm and dry Extremities: Bilateral lower extremities are warm without calf tenderness. Gross motor and sensory are intact. Right lower extremity surgical dressing is clean, dry, and intact. The patient is in her CPM machine. There are 2 JPs holding suction with cloudy serous drainage in the bulbs Assessment/Plan Assessment/Plan Assessment: 55-year-old female status post washout and placement of antibiotic beads of infected right total knee arthroplasty postoperative day #2. Plan: Continue IV antibiotics Follow-up morning laboratory studies Discontinue HOME WORKER, start PRN Dilaudid and Toradol Hep-Lock IV fluids GI and DVT prophylaxis Keep JPs to self suction Strict I's and O's Core Measures/Miscellaneous Venous Thromboembolism VTE Risk Factors: Age > 40, Surgery, Trauma major or lower ext VTE Contraindications: No Contraindications VTE Diagnosis: No VTE Type: NONE VTE Confirmed by (Test): NONE Beta Aramis Is Beta Aramis a Home Med? No Antibiotics Is Patient on Antibiotics? Yes
--- NOTE | 2016-05-14 07:59 | PN- Att Addend ---
Attending Addendum Attending Brief Note Attending note. 55-year-old lady status post right total knee replacement 16 days prior to this admission admitted with the wound which was initially bleeding drawn suspected to have infection. Wound culture was done shows positive for MSSA. Patient is admitted for wound irrigation and debridement. History of spinal stenosis History of chronic is moderate to severe pain and History of opioid use in the past. Currently being followed by pain management On examination patient is awake alert oriented 3 in moderate pain. Vital Signs Date Time Temp Pulse Resp B/P Pulse O2 O2 Flow FiO2 Ox Delivery Rate 05/14 0641 100.1 05/14 0630 101.1 05/14 06 101.1 78 18 132/60 96 Room Air 05/14 0203 99.2 83 20 116/68 94 Room Air 05/13 2200 99.0 93 18 120/60 94 Room Air 05/13 1757 99.6 89 18 112/60 98 Room Air 05/13 1517 99.8 93 18 118/70 93 05/13 1000 98.9 92 18 110/62 93 Room Air Room Air 05/13 0800 93 Room Air Room Air Intake & Output 05/14 0800 05/14 0000 05/13 1600 Intake Total 1000 1180 1400 Output Total 1065 720 550 Balance -65 460 850 Intake, IV 600 300 600 Intake, Oral 400 880 800 Number 1 0 Bowel Movements Output, 65 70 Drainage Output, Urine 1000 650 550 Examination patient is awake alert oriented 3 in moderate amount of pain. Conjunctivae is pink sclerae anicteric S1-S2 is normal Lungs are clear Abdomen soft nontender bowel sounds are present. The right leg surgical dressing is clean and dry and intact there 2 JAMES drains holding suction with some cloudy serous drainage in the bulbs. Per ID recommendation Plan continue on IV cefazolin 2 g IV 8 every 8 hours and rifampin for 50 mg every 12 hours. Most likely prostatic joint infection. She will need a prolonged course of antibiotics.
[2016-05-14 08:41] LABS: ABSOLUTE BASOPHIL COUNT 0 /CUMM (0.0-0.2); ABSOLUTE EOSINOPHIL COUNT 0.1 /CUMM (0.0-0.7); ABSOLUTE GRANULOCYTE CT 10.1 /CUMM (1.4-6.5); ABSOLUTE LYMPH COUNT 1.6 /CUMM (1.2-3.4); ABSOLUTE MONOCYTE COUNT 0.7 /CUMM (0.10-0.60); BASOPHIL % 0.3 % (0.0-2.0); EOSINOPHIL % 0.8 % (0-5); GRANULOCYTE % 80.8 % (42.2-75.2); HEMATOCRIT 21.8 % (37-47); MEAN CORPUSCULAR HGB 26.7 PG (27.0-31.0); MEAN CORPUSCULAR HGB CONC 32.5 G/DL (33.0-37.0); MEAN CORPUSCULAR VOLUME 82.2 FL (81.0-99.0); MEAN PLATELET VOLUME 7.9 FL (7.4-10.4); PLATELET COUNT 466 /CUMM (130-400); RBC DISTRIBUTION WIDTH 14.4 % (11.5-14.5); RED BLOOD CELL CT 2.65 /CUMM (4.20-5.40); WHITE BLOOD CELL COUNT 12.6 /CUMM (4.8-10.8)
--- NOTE | 2016-05-14 11:50 | PN- Infect Dx ---
Subjective Subjective: MAXIMUM TEMPERATURE 101.1. She complains of pain in the right knee, but does note some improvement. Objective Last 24 Hrs of Vital Signs/I&O Vital Signs Date Time Temp Pulse Resp B/P Pulse O2 O2 Flow FiO2 Ox Delivery Rate 05/14 1037 Room Air Room Air 05/14 0808 99.0 05/14 0641 100.1 05/14 0630 101.1 05/14 0618 101.1 78 18 132/60 96 Room Air 05/14 0203 99.2 83 20 116/68 94 Room Air 05/13 2200 99.0 93 18 120/60 94 Room Air 05/13 1757 99.6 89 18 112/60 98 Room Air 05/13 1517 99.8 93 18 118/70 93 Intake & Output 05/14 1600 05/14 0800 05/14 0000 Intake Total 1000 1180 Output Total 1065 720 Balance -65 460 Intake, IV 600 300 Intake, Oral 400 880 Number 1 Bowel Movements Output, 65 70 Drainage Output, Urine 1000 650 Physical Exam Other Physical Findings: She appears comfortable in no acute distress Lungs decreased breath sounds at the right base Heart regular rhythm with no murmur Extremities right knee in an immobilizer Results Last 24 Hours of Lab Results: Laboratory Tests 05/14 629 Hematology CBC w Diff NO MAN DIFF REQ WBC (4.8 - 10.8 /CUMM) 12.6 H RBC (4.20 - 5.40 /CUMM) 2.65 L Hgb (12.0 - 16.0 G/DL) 7.1 *L Hct (37 - 47 %) 21.8 L MCV (81.0 - 99.0 FL) 82.2 MCH (27.0 - 31.0 PG) 26.7 L RDW (11.5 - 14.5 %) 14.4 Plt Count (130 - 400 /CUMM) 466 H MPV (7.4 - 10.4 FL) 7.9 Gran % (42.2 - 75.2 %) 80.8 H Lymphocytes % (20.5 - 51.1 %) 12.4 L Monocytes % (1.7 - 9.3 %) 5.7 Eosinophils % (0 - 5 %) 0.8 Basophils % (0.0 - 2.0 %) 0.3 Absolute Granulocytes (1.4 - 6.5 /CUMM) 10.1 H Absolute Lymphocytes (1.2 - 3.4 /CUMM) 1.6 Absolute Monocytes (0.10 - 0.60 /CUMM) 0.7 H Absolute Eosinophils (0.0 - 0.7 /CUMM) 0.1 Absolute Basophils (0.0 - 0.2 /CUMM) 0 PUBS MCHC (33.0 - 37.0 G/DL) 32.5 L Last 24 Hours of Titus Results: Blood cultures 2 May 12 negative OR culture right knee synovial fluid May 12 positive for Staph aureus sensitive to Oxacillin Assessment/Plan Impression: Stable status post right knee irrigation and debridement with polyethylene liner exchange 2 days ago for an infected right knee prosthesis secondary to MSSA, on Cefazolin and Rifampin. She denies any penicillin allergy; therefore her Cefazolin can be narrowed to Oxacillin. Note that Rifampin can increase the metabolism of multiple drugs including Eliquis; therefore her medications should be reviewed and appropriately adjusted if necessary. Her fever is of unclear significance, with her white blood cell count decreased, and, with her decrease in H&H, could suggest a hematoma. Postop atelectasis is also a possibility. Suggestion: 1. Reevaluate all of her medications while on Rifampin 2. Would pursue placement of a PICC 3. Can review chest x-ray after PICC to evaluate for atelectasis 4. Discontinue Cefazolin 5. Begin Oxacillin 2 g IV every 4 hours 6. Continue Rifampin
--- NOTE | 2016-05-14 15:44 | RADIOLOGY REPORT ---
EXAMINATION: XR PORTABLE CHEST CLINICAL INFORMATION: PICC line tip placement. COMPARISON: Chest x-ray 04/14/2014. TECHNIQUE: Portable AP portable view of the chest was obtained. 3:17 PM FINDINGS: Left-sided chest is excluded from the study. Right-sided PICC line catheter tip in superior vena cava at the cavoatrial junction. The visualized lung flores are clear. No pulmonary vascular congestion. IMPRESSION: Right-sided PICC line catheter tip in superior vena cava at cavoatrial junction.
[2016-05-14 22:19] VITALS: BP 113/60
--- NOTE | 2016-05-14 22:49 | NUR ---
AVSS.A/OX3.FOLLOW COMMANDS.+MCKOY WITH +CMS.RIGHT KNEE INCISION CDI.RIGHT KNEE CPM MACHINE CONT.+PP.RIGHT KNEE EDEMA.LCTA AND ON RA. IV ABX CONT VIA PICC SITE.C/O N/V AND ZOFRAN GIVEN WITH GOOD EFFECT.PLAN OF CARE REVIEWED.
[2016-05-15 04:14] VITALS: BP 128/64
[2016-05-15 05:41] VITALS: BP 128/64
--- NOTE | 2016-05-15 07:49 | PN- Orthopedic ---
See Addendum Subjective Subjective: NAEO. Patient without new c/o. States that she does have occasional pain in her right knee. Denies numbness or tingling down the right lower extremity. Tolerating diet without nausea vomiting. Has been out of bed. Voiding. Denies chest pain or shortness of breath. Objective Vital Signs and I&Os Vital Signs Date Time Temp Pulse Resp B/P Pulse O2 O2 Flow FiO2 Ox Delivery Rate 05/15 0541 98.9 86 20 128/64 94 05/15 0414 98.9 86 20 128/64 94 Room Air 05/14 2219 98.2 89 20 113/60 92 Room Air 05/14 1037 Room Air Room Air 05/14 0808 99.0 Intake & Output 05/15 0800 05/15 0000 05/14 1600 05/14 0800 05/14 0000 05/13 1600 Intake Total 537 652 8407 1000 1180 1400 Output Total 400 314 149 7839 720 550 Balance 300 -460 300 -65 460 850 Intake, IV 220 100 600 300 600 Intake, Oral 401 899 7536 400 880 800 Number 1 1 0 Bowel Movements Output, 65 70 Drainage Output, Urine 400 581 389 7169 650 550 Patient 228 lb Weight Physical Exam: General: NAD, comfortable, A&Ox3 Chest: NRD, breathing comfortably on room air Heart S1S2 normal. Abdomen: soft, nontender, nondistended. Ext: Right knee incision with mild surrounding erythema and swelling, is improved since washout. Serosanguineous drainage. No calve swelling/TTP, neurovascularly intact bilateral lower extremities Current Medications: Current Medications Sig/Yousuf Start time Last Medication Dose Route Stop Time Status Admin Acetaminophen 650 MG Q4P PRN 05/14 0630 AC 05/14 PO 0630 Acetaminophen/ 1 TAB Q4P PRN 05/14 0915 AC Hydrocodone Bitart PO Acetaminophen/ 2 TAB Q4P PRN 05/14 0915 AC 05/15 Hydrocodone Bitart PO 0625 Apixaban 2.5 MG BID 05/13 1000 AC 05/14 PO 2222 Bisacodyl 10 MG DAILY PRN 05/12 1400 AC NM Cefazolin Sodium 2 GM IQ8 05/12 1600 DC 05/14 N/A 1 UNIT IV 05/14 1558 0855 Docusate Sodium 100 MG TID 05/12 1600 AC 05/14 PO 1622 Gabapentin 100 MG QPM 05/12 2200 AC 05/14 PO 2222 Hydromorphone HCl 1 MG Q3P PRN 05/14 0700 AC 05/15 IV 0436 Ketorolac 30 MG Q8P PRN 05/14 0700 AC 05/14 Tromethamine IV 05/16 0600 2228 Lidocaine 1 PAT DAILY PRN 05/12 1345 AC 05/13 EXT 1020 Melatonin 3 MG QPM 05/12 2200 DC 05/13 PO 2218 Omeprazole 20 MG DAILY AC 05/13 0700 AC 05/15 PO 0605 Ondansetron HCl 4 MG Q6P PRN 05/12 1515 AC 05/13 IV 2024 Oxacillin Sodium 2,000 MG Q4H 05/14 1600 AC 05/15 Sodium Chloride 100 ML IV 05/15 1559 0727 Oxacillin Sodium 2,000 MG Q4 05/14 1400 DC 05/14 Sodium Chloride 100 ML IV 05/15 1359 1622 Oxycodone HCl 30 MG 0000,1200 05/13 0000 05/15 PO 0045 Oxycodone HCl 10 MG Q4 HRS NEEDED PRN 05/12 1515 MI PO Oxycodone HCl 15 MG Q4 HRS NEEDED PRN 05/12 1515 DC 05/12 PO 2242 Patient Medication 1 ED .STK-MED ONE 05/14 1410 [facility] ED 05/14 1411 Patient Medication 1 UNIT ONE NR 05/14 0745 [facility] ED 05/14 1345 Polyethylene Glycol 17 GM DAILY 05/13 1000 05/14 PO 0855 Rifampin 450 MG Q12H 05/13 0600 05/15 PO 0606 Senna 187 MG BID 05/12 2200 05/14 PO 0855 Zolpidem Tartrate 5 MG AT BEDTIME PRN 05/14 1230 AC 05/14 PO 2228 Results Last 48 Hours of Labs: Laboratory Tests 05/15 05/14 0615 0630 Chemistry Sodium Pending Potassium Pending Chloride Pending Carbon Dioxide Pending Anion Gap Pending BUN Pending Creatinine Pending BUN/Creatinine Ratio Pending Hematology CBC w Diff Pending NO MAN DIFF REQ WBC (4.8 - 10.8 /CUMM) Pending 12.6 H RBC (4.20 - 5.40 /CUMM) Pending 2.65 L Hgb (12.0 - 16.0 G/DL) Pending 7.1 *L Hct (37 - 47 %) Pending 21.8 L MCV (81.0 - 99.0 FL) Pending 82.2 MCH (27.0 - 31.0 PG) Pending 26.7 L RDW (11.5 - 14.5 %) Pending 14.4 Plt Count (130 - 400 /CUMM) Pending 466 H MPV (7.4 - 10.4 FL) Pending 7.9 Gran % (42.2 - 75.2 %) 80.8 H Lymphocytes % (20.5 - 51.1 %) 12.4 L Monocytes % (1.7 - 9.3 %) 5.7 Eosinophils % (0 - 5 %) 0.8 Basophils % (0.0 - 2.0 %) 0.3 Absolute Granulocytes (1.4 - 6.5 /CUMM) 10.1 H Absolute Lymphocytes (1.2 - 3.4 /CUMM) 1.6 Absolute Monocytes (0.10 - 0.60 /CUMM) 0.7 H Absolute Eosinophils (0.0 - 0.7 /CUMM) 0.1 Absolute Basophils (0.0 - 0.2 /CUMM) 0 PUBS MCHC (33.0 - 37.0 G/DL) Pending 32.5 L Assessment/Plan Assessment/Plan 55yo F status post right knee washout on 05/12/16 and PICC line placement yesterday 05/14/16. AVSS, patient stable. - Pain control - abx per ID, will f/u recs - OOB and ambulate - f/u C&S - I/O's - continue Eliquis - ALPS - Will d/w attending Core Measures/Miscellaneous Venous Thromboembolism VTE Risk Factors: Age > 40, Surgery, Trauma major or lower ext VTE Contraindications: No Contraindications VTE Diagnosis: No VTE Type: NONE VTE Confirmed by (Test): NONE Beta Aramis Is Beta Aramis a Home Med? No Antibiotics Is Patient on Antibiotics? Yes If Yes: infection
--- NOTE | 2016-05-15 08:12 | PN- Att Addend ---
Attending Addendum Attending Brief Note Medical attending note. Patient is comfortable has got mild to moderate pain in the right knee but some minimal drainage. Vital Signs Date Time Temp Pulse Resp B/P Pulse O2 O2 Flow FiO2 Ox Delivery Rate 05/15 0541 98.9 86 20 128/64 94 05/15 0414 98.9 86 20 128/64 94 Room Air 05/14 2219 98.2 89 20 113/60 92 Room Air 05/14 1037 Room Air Room Air Intake & Output 05/15 1600 05/15 0800 05/15 0000 Intake Total 700 340 Output Total 400 800 Balance 300 -460 Intake, IV 220 100 Intake, Oral 480 240 Number 1 Bowel Movements Output, Urine 400 800 On examination patient is comfortable conjunctivae is pink sclera is anicteric S1-S2 is normal Lungs air entry equal bilaterally Abdomen is soft nontender bowel sounds are present No calf tenderness present. Right leg the wound appears to be healing but there is slight drainage in the lower end of the incision. 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 2 g of oxacillin every 4 hours patient will need a PICC line. Patient also on rifampin Follow recommendations of infectious disease Due to prophylaxis Pain management.
[2016-05-15 08:16] LABS: ABSOLUTE BASOPHIL COUNT 0 /CUMM (0.0-0.2); ABSOLUTE EOSINOPHIL COUNT 0.1 /CUMM (0.0-0.7); ABSOLUTE GRANULOCYTE CT 7.7 /CUMM (1.4-6.5); ABSOLUTE LYMPH COUNT 1.9 /CUMM (1.2-3.4); ABSOLUTE MONOCYTE COUNT 0.7 /CUMM (0.10-0.60); BASOPHIL % 0.2 % (0.0-2.0); EOSINOPHIL % 1.1 % (0-5); GRANULOCYTE % 74.1 % (42.2-75.2); HEMATOCRIT 21.1 % (37-47); MEAN CORPUSCULAR HGB 26.7 PG (27.0-31.0); MEAN CORPUSCULAR HGB CONC 32.4 G/DL (33.0-37.0); MEAN CORPUSCULAR VOLUME 82.4 FL (81.0-99.0); PLATELET COUNT 520 /CUMM (130-400); RBC DISTRIBUTION WIDTH 14.2 % (11.5-14.5); RED BLOOD CELL CT 2.56 /CUMM (4.20-5.40); WHITE BLOOD CELL COUNT 10.4 /CUMM (4.8-10.8)
[2016-05-15 10:25] VITALS: BP 120/60
[2016-05-15 14:26] VITALS: BP 116/60
--- NOTE | 2016-05-15 18:15 | Patient Discharge Instructions ---
Discharge Instructions General Discharge Information You were seen/treated for: Right infected total knee arthroplasty You had these procedures: 05/12/16 Right knee irrigation and debridement, polyethylene liner exchange, placement of resorbable antibiotic beads. Watch for these problems: Increased redness, swelling, purulent drainage. New onset of fever. Signs of infection. Increased pain. Decreased range of motion. Rash/hives. Trouble with PICC line. Chest pain. Shortness of breath. Do not soak the wound: Yes No bath, but you may shower: Yes Other wound care: Daily dry dressing changes Special Instructions: continue Oxacillin and Rifampin to complete a six-week course (until June 23) Diet Continue normal diet: Yes Activity Activity Self Limited: Yes Activity Limited to: Weight bear as tolerated Additional ACTIVITY Info: Daily PT. Continue to work aggressively on range of motion to combat stiffness. Acute Coronary Syndrome Inclusion Criteria At DC or during hospital stay patient has or had the following: ACS DIAGNOSIS No Discharge Core Measures Meds if any: Prescribed or Continued at Discharge Meds if any: NOT Prescribed or Continued at Discharge Congestive Heart Failure Inclusion Criteria At DC or during hospital stay patient has or had the following: CHF DIAGNOSIS No Discharge Core Measures Meds if any: Prescribed or Continued at Discharge Meds if any: NOT Prescribed or Continued at Discharge Cerebrovascular accident Inclusion Criteria At DC or during hospital stay patient has or had the following: CVA/TIA Diagnosis No Discharge Core Measures Meds if any: Prescribed or Continued at Discharge Meds if any: NOT Prescribed or Continued at Discharge Venous thromboembolism Inclusion Criteria VTE Diagnosis No VTE Type NONE VTE Confirmed by (Test) NONE Discharge Core Measures - Per Current guidelines, there needs to be overlap - treatment for the first 5 days of Warfarin therapy. - If discharged on Warfarin prior to 5 days of - overlap therapy, the patient will need to be - assessed for post discharge needs including - *Post discharge parental anticoagulation - *Warfarin and/or parental anticoagulation education - *Follow up date to check INR post discharge At least 5 days overlap therapy as Inpatient No Meds if any: Prescribed or Continued at Discharge Note: Overlap Therapy is Warfarin and Anticoagulant Meds if any: NOT Prescribed or Continued at Discharge
--- NOTE | 2016-05-15 18:23 | Discharge Summary ---
Visit Information Visit Dates Admission Date: 05/12/16 Discharge Date: 05/18/16 Addendum Addendum Patient was also morbidly obese with a BMI 43.1 Hospital Course Course Attending Physician: ISABELA GOMEZ MD Primary Care Physician: LISETTE MARTINEZ,DIDIER Pang Hospital Course: Patient sent to [facility] after aspirate of right total knee joint revealed staph aureus (done at Dr. Gomez's office). She was taken to OR for washout and absorbable antibiotic bead placement. Post operatively she was kept on antibiotics and Dr. Scott (Infectious disease) was consulted. She worked with PT to help maintain and improve range of motion. Pain control optimized. PICC line placed 05/14/16 for continued IV antibiotic therapy. She will continue antibiotic therapy to complete 6 weeks (ending June 23). There was drainage noted from the inferior portion of her knee incision, which was evaluated by , who agreed that this drainage was actually material from the vancomycin antibiotic beads rather than purulent drainage. Upon discharge to rehab, the patient is afebrile, pain controlled, tolerating diet, ambulating with PT. Appropriate for DC. Complications: None Allergies: Coded Allergies: ciprofloxacin (From Cipro) (Intermediate, HIVES 09/02/15) adhesive tape (UNKNOWN 09/02/15) diphenhydramine (UNKNOWN 09/02/15) Significant Procedures: 05/12/16 Right knee irrigation and debridement, polyethylene liner exchange, placement of resorbable antibiotic beads. Disposition Summary Disposition Principal Diagnosis: Right infected total knee arthroplasty Additional Diagnosis: None Discharge Disposition: SNF Discharge Instructions General Discharge Information Code Status: Full Code Patient's Diet: Resume normal diet Patient's Activity: Weight bearing as tolerated Follow-Up Instructions/Appts: call Dr. Gomez's Office to schedule/confirm appointment for saturday (05/22) staple removal around post-op day#14 weekly labs should include cbc, cmp, esr while on antibiotics per to complete 6 weeks of antibiotics (ending June 23) Medications at Discharge Discharge Medications: Stop taking the following medications: Nitrofurantoin Monohyd/M-Cryst (Macrobid 100 MG Capsule) 100 MG CAPSULE ORAL QOD Enoxaparin Sodium (Lovenox) 40 MG/0.4 ML SYRINGE Inject into fatty tissue DAILY Qty = 30 Oxycodone HCl (Oxycodone HCl) 10 MG TABLET ORAL EVERY 4 HOURS NEEDED as needed for PAIN SCALE 4-6 (MODERATE) Qty = 1 Oxycodone HCl (Oxycodone HCl) 5 MG TABLET ORAL EVERY 4 HOURS NEEDED as needed for PAIN SCALE 7-10 (SEVERE) Qty = 1 Oxycodone HCl/Acetaminophen (Oxycodone-Acetaminophen 10-325) 10 MG-325 MG TABLET ORAL TWICE DAILY Qty = 120 Oxycodone HCl/Acetaminophen (Percocet 10-325 MG Tablet) 10 MG-325 MG TABLET ORAL EVERY SIX HOURS NEEDED as needed for PAIN Oxycodone HCl/Acetaminophen (Percocet 10-325 MG Tablet) 10 MG-325 MG TABLET ORAL EVERY 4 HOURS NEEDED as needed for PAIN Continue taking these medications: Lidocaine (Lidoderm) 5 % ADH..PATCH 1 PATCH ON SKIN DAILY as needed for PAIN Comments: Last Taken: 05/18/16 Time: 10:30 AM Sennosides (Senna) 8.6 MG TABLET 2 Tablet ORAL DAILY Comments: Last Taken: 05/17/16 Time: 10:15 PM Oxycodone HCl (Oxycontin) 30 MG TAB.ER.12H 1 Tablet ORAL TWICE DAILY Qty = 1 Comments: Last Taken: 05/18/16 Time: 12:00 PM Prochlorperazine Maleate (Compazine) 10 MG TABLET 1 Tablet ORAL EVERY 8 HOURS as needed for N/V Comments: NOT GIVEN IN HOSPITAL Melatonin (Melatonin) 3 MG TABLET 1 Tablet ORAL Every night Comments: NOT GIVNE IN HOSPTIAL Gabapentin (Neurontin) 100 MG CAPSULE 1 Capsule ORAL Every night Comments: NOT GIVEN IN HOSPITAL Omeprazole (Omeprazole) 20 MG TABLET.DR 1 Tablet ORAL DAILY Comments: Last Taken: 05/18/16 Time: 6:30 AM Start taking the following new medications: Apixaban (Eliquis) 2.5 MG TABLET 2.5 Milligram ORAL TWICE DAILY Days = 30 No Refills Comments: Last Taken: 05/18/16 Time: 10:00 AM Diazepam (Valium) 10 MG TABLET 2 Milligram ORAL 4 TIMES A DAY as needed for muscle spasm Days = 7 No Refills Instructions: stagger with pain medication Comments: Last Taken: 05/18/16 Time: 10:30 AM Docusate Sodium (Docusate Sodium) 100 MG CAPSULE 100 Milligram ORAL THREE TIMES DAILY as needed for CONSTIPATION Days = 14 No Refills Comments: Last Taken: 05/18/16 Time: 10:15 PM Hydromorphone HCl (Hydromorphone HCl) 2 MG TABLET 2 Milligram ORAL EVERY 3 HOURS NEEDED as needed for PAIN SCALE 4-6 ( MODERATE) Days = 14 No Refills Comments: THIS DOSE NOT GIVEN IN HOSPITAL Hydromorphone HCl (Hydromorphone HCl) 2 MG TABLET 4 Milligram ORAL EVERY 3 HOURS NEEDED as needed for PAIN SCALE 7-10 ( SEVERE) Days = 14 No Refills Comments: Last Taken: 05/18/16 Time: 4:13 PM Polyethylene Glycol 3350 (Miralax) 17 GRAM/DOSE POWDER 17 Gram ORAL DAILY as needed for CONSTIPATION Days = 7 No Refills Comments: Last Taken: 05/17/16 Time: 10:00 AM Rifampin (Rifampin) 150 MG CAPSULE 450 Milligram ORAL Q12H Days = 35 No Refills Instructions: continue for a total of 6 weeks (ending june 23) Comments: Last Taken: 05/17/16 Time: 6:30 AM Zolpidem Tartrate (Zolpidem Tartrate) 5 MG TABLET 5 Milligram ORAL AT BEDTIME as needed for SLEEP Days = 14 No Refills Comments: Last Taken: 05/17/16 Time: 10:15 PM Oxacillin Sodium/Dextrose,Iso (Oxacillin 2 Gm/ 50 Ml Inj) 2 GRAM/50 ML FROZ.PIGGY 2 Gram INTRAVEN Every 4 hours Days = 35 No Refills Instructions: to complete 6 weeks (ending june 23) Comments: Last Taken: 05/18/16 Time: 4:00 PM Copies To: LISETTE MARTINEZ,DIDIER Pang; DAINA MARTINEZ,BLAS Carrasquillo
--- NOTE | 2016-05-15 20:48 | NUR ---
PT REQUESTED CPM MACHINE AT CHANGE OF SHIFT. REMOVED WHEN PATIENT GOT OOB FOR BATHROOM AND DINNER, AT 1730. PT AMBULATED WITH RW OUT OF ROOM, AROUND FISH TANK ROOM AND BACK. DID WELL. C/O PAIN THROUGHOUT SHIFT AND NAUSEA. MEDICATED PER EMAR.
[2016-05-15 22:00] VITALS: BP 129/75
[2016-05-16 04:00] VITALS: BP 118/70
[2016-05-16 06:17] VITALS: BP 120/64
--- NOTE | 2016-05-16 07:04 | PN- Orthopedic ---
Subjective Subjective: The patient seen this morning postoperatively day #4. She still complaining of significant pain in her knee with when she has no other complaints. Objective Vital Signs and I&Os Vital Signs Date Time Temp Pulse Resp B/P Pulse O2 O2 Flow FiO2 Ox Delivery Rate 05/16 0617 98.3 68 20 120/64 95 / 0400 97.5 74 18 118/70 94 Room Air 05/15 2200 98.7 76 16 129/75 Room Air 05/15 1426 98.3 81 20 116/60 97 Room Air 05/15 1025 98.5 68 20 120/60 94 Room Air Intake & Output 05/16 0800 / 0000 03/14 1600 / 0800 05/15 0000 05/14 1600 Intake Total 600 800 535 048 7221 Output Total 600 950 400 800 700 Balance 0 -150 300 -460 300 Intake, IV 220 100 Intake, Oral 600 800 383 966 0305 Number 2 1 Bowel Movements Output, Urine 600 950 400 800 700 Patient 228 lb Weight Physical Exam: Gen.: Alert and complaining of right knee pain Skin: Warm and dry Extremities: Bilateral lower extremities are warm without calf tenderness or significant edema. Gross motor and sensory are intact. Right knee surgical incision with clips intact. There is mild serous drainage from the lateral drain ports on the dressing. There is still expected postoperative edema with minimal erythema. Assessment/Plan Assessment/Plan Assessment: 72-year-old female status post washout of right total knee arthroplasty secondary to infection postoperative day #4. The patient is making expected improvement and has remained afebrile with a stabilized white count on the current antibiotic regiment. Plan: Continue IV antibiotics per ID recommendations Daily dry dressing change Out of bed with physical therapy GI and DVT prophylaxis Follow-up morning laboratory studies Core Measures/Miscellaneous Venous Thromboembolism VTE Risk Factors: Age > 40, Surgery, Trauma major or lower ext VTE Contraindications: No Contraindications VTE Diagnosis: No VTE Type: NONE VTE Confirmed by (Test): NONE Beta Aramis Is Beta Aramis a Home Med? No Antibiotics Is Patient on Antibiotics? Yes If Yes: infection
--- NOTE | 2016-05-16 07:10 | PN- Student ---
GRACE MCGRAW 05/16/16 0657: Subjective Subjective: Patient reports no acute events overnight and states her pain is a 9/10. She denies any chest pain, shortness of breath, nausea, vomiting, dysuria, or fevers. She reports passing her bowels without problem. Objective Objective: Vitals: BP:120/64 Pulse: 68 Resp:20 Temp: 98.3F Spo2:95%RA Physical Exam: General: Well appearing with mild restlessness. Alert and oreinted to person place time and event. Skin: [place] warm and dry. Head: Normocephalic, atraumatic. Eyes: PERRL, EOMI. Cardiac: Regular rate and rhythm, normal S1/S2, no murmurs rubs or gallops. Pulmonary: Clear to ausculation bilaterally, no wheezes, rhonchi, or rales. Abdomen: Normoactive bowel sounds, soft, non-distended, non-tender. Extremities: Right leg in physical therapy range of motion device. 2+ bilateral radial and dorsalis pedis pulses. No calf tenderness or edema bilaterally. Right knee incision intact by desire covered by dressing. Dressing has mild serosanguinous discharge present, but no obvious drainage otherwise. Results Results: Laboratory Tests 05/15/16 0615: Anion Gap 7, Estimated GFR > 60, BUN/Creatinine Ratio 20.0, CBC w Diff NO MAN DIFF REQ, RBC 2.56 L, MCV 82.4, MCH 26.7 L, RDW 14.2, MPV 8.0, Gran % 74.1, Lymphocytes % 18.2 L, Monocytes % 6.4, Eosinophils % 1.1, Basophils % 0.2, Absolute Granulocytes 7.7 H, Absolute Lymphocytes 1.9, Absolute Monocytes 0.7 H, Absolute Eosinophils 0.1, Absolute Basophils 0, PUBS MCHC 32.4 L 05/14/16 0630: CBC w Diff NO MAN DIFF REQ, RBC 2.65 L, MCV 82.2, MCH 26.7 L, RDW 14.4, MPV 7.9, Gran % 80.8 H, Lymphocytes % 12.4 L, Monocytes % 5.7, Eosinophils % 0.8, Basophils % 0.3, Absolute Granulocytes 10.1 H, Absolute Lymphocytes 1.6, Absolute Monocytes 0.7 H, Absolute Eosinophils 0.1, Absolute Basophils 0, PUBS MCHC 32.5 L Assessment/Plan Assessment: Patient is a 55 year old female with a history of osteoarthritis of the right knee and chronic pain condition. She is POD#20 s/p total right knee replacement that is on a return to hospital admission day 4 for wound infection. Plan: -Continue pain management as directed. -Consider switching to PO pain management. -Continue regular diet as tolerated. -Continue antibiotics per ID recommendations. -Continue physical therapy recommendations. -Continue eliquis for DVT prophylaxis. -Follow up with am labs. Will discuss above with PA surgical team. Grace COHEN-S2 EMILY COHEN,OLIVA 05/16/16 0928: Assessment/Plan Plan: I HAVE SEEN THE ABOVE PATIENT AND NOTE PLEASE SEE MY NOTE FROM TODAY WELL
--- NOTE | 2016-05-16 08:20 | PN- Att Addend ---
Attending Addendum Attending Brief Note Attending note. Patient is comfortable with mild to moderate discomfort and minimal drainage from the right knee. Vital Signs Date Time Temp Pulse Resp B/P Pulse O2 O2 Flow FiO2 Ox Delivery Rate 05/16 0617 98.3 68 20 120/64 95 05/16 0400 97.5 74 18 118/70 94 Room Air 05/15 2200 98.7 76 16 129/75 Room Air 05/15 1426 98.3 81 20 116/60 97 Room Air 05/15 1025 98.5 68 20 120/60 94 Room Air Intake & Output 05/16 1600 05/16 0800 05/16 0000 Intake Total 600 Output Total 600 Balance 0 Intake, Oral 600 Output, Urine 600 On exam she patient is comfortable JVD is not raised no carotid bruit present. S1-S2 is normal Lungs air entry equal bilaterally no crepitations or rhonchi Abdomen is soft nontender bowel sounds are present. Assessment Continue with IV oxacillin for infection of the right knee joint with MSSA. Continue with DVT prophylaxis
[2016-05-16 08:46] LABS: ABSOLUTE BASOPHIL COUNT 0.1 /CUMM (0.0-0.2); ABSOLUTE EOSINOPHIL COUNT 0.2 /CUMM (0.0-0.7); ABSOLUTE GRANULOCYTE CT 6.8 /CUMM (1.4-6.5); ABSOLUTE LYMPH COUNT 2.7 /CUMM (1.2-3.4); ABSOLUTE MONOCYTE COUNT 0.9 /CUMM (0.10-0.60); BASOPHIL % 0.5 % (0.0-2.0); EOSINOPHIL % 2.1 % (0-5); GRANULOCYTE % 63.7 % (42.2-75.2); MEAN CORPUSCULAR HGB 26.7 PG (27.0-31.0); MEAN CORPUSCULAR HGB CONC 32.5 G/DL (33.0-37.0); MEAN PLATELET VOLUME 7.9 FL (7.4-10.4); PLATELET COUNT 663 /CUMM (130-400); RBC DISTRIBUTION WIDTH 14.3 % (11.5-14.5); WHITE BLOOD CELL COUNT 10.7 /CUMM (4.8-10.8)
--- NOTE | 2016-05-16 11:09 | PN- Infect Dx ---
Subjective Subjective: Afebrile. She complains of increased pain in the right knee Objective Last 24 Hrs of Vital Signs/I&O Vital Signs Date Time Temp Pulse Resp B/P Pulse O2 O2 Flow FiO2 Ox Delivery Rate 05/16 0617 98.3 68 20 120/64 95 05/16 0400 97.5 74 18 118/70 94 Room Air 05/15 2200 98.7 76 16 129/75 Room Air 05/15 1426 98.3 81 20 116/60 97 Room Air Intake & Output 05/16 1600 05/16 0800 05/16 0000 Intake Total 800 600 Output Total 1150 600 Balance -350 0 Intake, IV 200 Intake, Oral 600 600 Output, Urine 1150 600 Physical Exam Other Physical Findings: She appears uncomfortable Extremities right knee incision with surrounding ecchymosis, with seropurulent appearing drainage from the inferior aspect of the incision, tender to palpation ; PICC in the right upper extremity with dressing intact Results Last 24 Hours of Lab Results: Laboratory Tests 05/16 0800 Chemistry Sodium (137 - 145 mmol/L) 140 Potassium (3.5 - 5.1 mmol/L) 3.3 L Chloride (98 - 107 mmol/L) 99 Carbon Dioxide (22 - 30 mmol/L) 32 H Anion Gap (5 - 16) 9 Hematology CBC w Diff NO MAN DIFF REQ WBC (4.8 - 10.8 /CUMM) 10.7 RBC (4.20 - 5.40 /CUMM) 2.80 L Hgb (12.0 - 16.0 G/DL) 7.5 L Hct (37 - 47 %) 23.0 L MCV (81.0 - 99.0 FL) 82.0 MCH (27.0 - 31.0 PG) 26.7 L RDW (11.5 - 14.5 %) 14.3 Plt Count (130 - 400 /CUMM) 663 H MPV (7.4 - 10.4 FL) 7.9 Gran % (42.2 - 75.2 %) 63.7 Lymphocytes % (20.5 - 51.1 %) 25.2 Monocytes % (1.7 - 9.3 %) 8.5 Eosinophils % (0 - 5 %) 2.1 Basophils % (0.0 - 2.0 %) 0.5 Absolute Granulocytes (1.4 - 6.5 /CUMM) 6.8 H Absolute Lymphocytes (1.2 - 3.4 /CUMM) 2.7 Absolute Monocytes (0.10 - 0.60 /CUMM) 0.9 H Absolute Eosinophils (0.0 - 0.7 /CUMM) 0.2 Absolute Basophils (0.0 - 0.2 /CUMM) 0.1 PUBS MCHC (33.0 - 37.0 G/DL) 32.5 L Last 24 Hours of Titus Results: Blood cultures 2 May 12 negative Recent Imaging Studies: Chest x-ray May 14 negative Assessment/Plan Impression: Stable status post right knee irrigation and debridement with polyethylene liner exchange 4 days ago for an infected right knee prosthesis secondary to MSSA, now on Oxacillin and Rifampin. She remains afebrile with white blood cell count normal but she does have increased pain today, with what appears to be seropurulent drainage and this should be followed up. Suggestion: 1. Orthopedic evaluation of her incision 2. Continue Oxacillin and Rifampin to complete a six-week course (until June 23) 3. Follow CBC, ESR and CMP weekly while on antibiotics
--- NOTE | 2016-05-16 11:53 | Event Note ---
Event Note Event Note: called by to evaluation incision for ?seropurulent drainage from the inferior aspect of the knee incision. there does appear to be a seropurulent appearing drainage that is expressable from the inferior aspect. no impressive erythema. no fevers noted since saturday. wbc normal. discussed above with , who apparently expects the above and recommends continuing with plan for discharge with follow up on saturday in the office with him. a few desire were removed along the inferior aspect to promote drainage. discharge planning in progress will d/w
[2016-05-16 14:12] VITALS: BP 116/60
[2016-05-16 22:35] VITALS: BP 114/58
[2016-05-17 06:58] VITALS: BP 128/76
--- NOTE | 2016-05-17 07:33 | PN- Student ---
DENNIS MCGRAW 05/17/16 0712: Subjective Subjective: Patient denies any acute events overnight. She complains of 9/10 pain in her right knee with continuous drainage. She is also complaining of a dry tongue despite drinking lots of water. She denies any chest pain, headaches, shortness of breath, nausea, vomiting, diarrhea, dysuria or calf pain. Objective Objective: Vitals: BP:128/76 Pulse:79 Resp:20 Temp:97.8F SpO2: 94% RA Physical Exam: General: Sleeping upon arrival, well-appearing, in no acute distress. Alert and oriented to person place time and event. Skin: [place] warm and dry. Head: Normocephalic, atraumatic. Eyes: PERRL, EOMI. Mouth: Tongue rugated and dry in midline, no edema in floor, patent whartons and stensons ducts. Symmetrical rise of uvula on phonation. Neck: No lymphadenopathy, non-tender. Cardiac: Regular rate and rhythm, normal s1/s2, no murmurs, rubs, or gallops. Pulmonary: Clear to ausculation bilaterally, no wheezes, rhonchi, or rales. Abdomen: Normoactive bowel sounds, soft, non-tender, non-distened. Extremities: 2+ bilateral radial and dorsalis pedis pulses with motor and sensory in all 4 extremities. Right knee in range of motion device. Incision site covered by dressings soaked with red and yellow drainage. Lower portion of incision erythematous with yellowish red drainage, non-odorous. Dressing changed. Results Results: Laboratory Tests 05/17/16 0615: CBC w Diff Pending, WBC Pending, RBC Pending, Hgb Pending, Hct Pending, MCV Pending, MCH Pending, RDW Pending, Plt Count Pending, MPV Pending, PUBS MCHC Pending 05/16/16 0800: Anion Gap 9, CBC w Diff NO MAN DIFF REQ, RBC 2.80 L, MCV 82.0, MCH 26.7 L, RDW 14.3, MPV 7.9, Gran % 63.7, Lymphocytes % 25.2, Monocytes % 8.5, Eosinophils % 2.1, Basophils % 0.5, Absolute Granulocytes 6.8 H, Absolute Lymphocytes 2.7, Absolute Monocytes 0.9 H, Absolute Eosinophils 0.2, Absolute Basophils 0.1, PUBS MCHC 32.5 L 05/15/16 0615: Anion Gap 7, Estimated GFR > 60, BUN/Creatinine Ratio 20.0, CBC w Diff NO MAN DIFF REQ, RBC 2.56 L, MCV 82.4, MCH 26.7 L, RDW 14.2, MPV 8.0, Gran % 74.1, Lymphocytes % 18.2 L, Monocytes % 6.4, Eosinophils % 1.1, Basophils % 0.2, Absolute Granulocytes 7.7 H, Absolute Lymphocytes 1.9, Absolute Monocytes 0.7 H, Absolute Eosinophils 0.1, Absolute Basophils 0, PUBS MCHC 32.4 L Assessment/Plan Assessment: Patient is a 55 year old female with a history of osteoarthritis of the right knee s/p total right knee replacement on 04/26/16. Patient has had a complicated course with wound infection and return to hospital for washout on 05/12/16 and admission for infection. Plan: -Continue pain managment as outlined. -Continue antibiotic therapy as recommended by ID. -Continue ALPs, out of bed ambulation as tolerated, and eliquis for DVT prophylaxis. -Continue physical therapy as indicated. -Follow up with AM labs. -Replace potassium if remains low. -Check Mg level, and replace as neccessary. -Ensure adequate hydration. Monitor I's and O's -Consider checking or replacing Vit B12 and Vit D. -Dressing changes when soiled. Will discuss above with PA surgical team. Dennis COHEN-S2 JOSIAH TATE 05/17/16 0809: Addendum Addendum I have seen and examined patient and agree with above. Drainage serosanguineous with thickened drainage but no christina pus. f/u ID recs. PT. Continue abx. DC planning.
--- NOTE | 2016-05-17 08:02 | PN- Att Addend ---
Attending Addendum Attending Brief Note Attending note. Patient is in a moderate amount of pain in the right knee with the minimal discharge. Currently on antibiotics. Vital Signs Date Time Temp Pulse Resp B/P Pulse O2 O2 Flow FiO2 Ox Delivery Rate 05/17 0658 97.8 79 20 128/76 94 Room Air 05/16 2235 96.7 76 20 114/58 98 Room Air 05/16 1412 97.7 75 20 116/60 98 Room Air 05/16 1111 Room Air Room Air 05/16 1109 Room Air Room Air Intake & Output 05/17 1600 05/17 0800 05/17 0000 Intake Total 640 240 Output Total 1000 900 Balance -360 -660 Intake, IV 300 Intake, Oral 340 240 Output, Urine 1000 900 On examination patient is awake alert mild distress Neck is supple conjunctivae is pink S1-S2 is normal Lungs are clear Abdomen is soft nontender bowel sounds are present. No focal neurological deficit. Right knee shows movement mild amount of drainage. Plan Continue with IV antibiotics patient is [facility].
[2016-05-17 08:32] LABS: ABSOLUTE BASOPHIL COUNT 0 /CUMM (0.0-0.2); ABSOLUTE EOSINOPHIL COUNT 0.1 /CUMM (0.0-0.7); ABSOLUTE LYMPH COUNT 2.7 /CUMM (1.2-3.4); WHITE BLOOD CELL COUNT 11.9 /CUMM (4.8-10.8)
[2016-05-17 09:01] LABS: ABSOLUTE GRANULOCYTE CT 8.2 /CUMM (1.4-6.5); ABSOLUTE MONOCYTE COUNT 0.9 /CUMM (0.10-0.60); BASOPHIL % 0.4 % (0.0-2.0); EOSINOPHIL % 1.1 % (0-5); GRANULOCYTE % 68.9 % (42.2-75.2); HEMATOCRIT 22.3 % (37-47); MEAN CORPUSCULAR HGB 26.5 PG (27.0-31.0); MEAN CORPUSCULAR HGB CONC 32.4 G/DL (33.0-37.0); MEAN CORPUSCULAR VOLUME 81.8 FL (81.0-99.0); MEAN PLATELET VOLUME 7.5 FL (7.4-10.4); PLATELET COUNT 620 /CUMM (130-400); RBC DISTRIBUTION WIDTH 14.7 % (11.5-14.5); RED BLOOD CELL CT 2.73 /CUMM (4.20-5.40)
[2016-05-17 10:00] VITALS: BP 126/74
--- NOTE | 2016-05-17 11:44 | PN- Infect Dx ---
Subjective Subjective: Afebrile. She complains of severe pain in the right knee and continued drainage. Objective Last 24 Hrs of Vital Signs/I&O Vital Signs Date Time Temp Pulse Resp B/P Pulse O2 O2 Flow FiO2 Ox Delivery Rate 05/17 0658 97.8 79 20 128/76 94 Room Air 05/16 2235 96.7 76 20 114/58 98 Room Air 05/16 1412 97.7 75 20 116/60 98 Room Air Intake & Output 05/17 1600 05/17 0800 05/17 0000 Intake Total 640 240 Output Total 900 1000 900 Balance -900 -360 -660 Intake, IV 300 Intake, Oral 340 240 Number 1 Bowel Movements Output, Urine 900 1000 900 Physical Exam Other Physical Findings: She appears uncomfortable Extremities right knee incision, with no significant erythema, but with purulent drainage, tender on minimal palpation; PICC in place in the right upper extremity Results Last 24 Hours of Lab Results: Laboratory Tests 05/17 614 Hematology CBC w Diff NO MAN DIFF REQ WBC (4.8 - 10.8 /CUMM) 11.9 H RBC (4.20 - 5.40 /CUMM) 2.73 L Hgb (12.0 - 16.0 G/DL) 7.2 *L Hct (37 - 47 %) 22.3 L MCV (81.0 - 99.0 FL) 81.8 MCH (27.0 - 31.0 PG) 26.5 L RDW (11.5 - 14.5 %) 14.7 H Plt Count (130 - 400 /CUMM) 620 H MPV (7.4 - 10.4 FL) 7.5 Gran % (42.2 - 75.2 %) 68.9 Lymphocytes % (20.5 - 51.1 %) 22.3 Monocytes % (1.7 - 9.3 %) 7.3 Eosinophils % (0 - 5 %) 1.1 Basophils % (0.0 - 2.0 %) 0.4 Absolute Granulocytes (1.4 - 6.5 /CUMM) 8.2 H Absolute Lymphocytes (1.2 - 3.4 /CUMM) 2.7 Absolute Monocytes (0.10 - 0.60 /CUMM) 0.9 H Absolute Eosinophils (0.0 - 0.7 /CUMM) 0.1 Absolute Basophils (0.0 - 0.2 /CUMM) 0 PUBS MCHC (33.0 - 37.0 G/DL) 32.4 L Last 24 Hours of Titus Results: No new cultures Assessment/Plan Impression: Persistent pain with purulent drainage from the right knee incision now 5 days status post right knee irrigation and debridement with polyethylene liner exchange for an 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 She remains afebrile but white blood cell count is increasing on Oxacillin and Rifampin, and , with purulent drainage, feel that she may require further I&D and, possibly, removal of the hardware. Suggestion: 1. Orthopedic evaluation of her incision 2. Continue Oxacillin and Rifampin
[2016-05-17 14:08] VITALS: BP 120/66
--- NOTE | 2016-05-17 18:05 | PN- Orthopedic ---
Surgical Brief Attending Note Brief Attending Note: Asked to see patient in Dr. Gomez's absence. Briefly, pt had a RTKA approx 3 weeks ago and subsequently underwent an I&D poly exchange, placement of antibiotic beads, 5 days ago for persistent drainage. OR cultures positive for MSSA. Pt complaining of pain and "purulent" drainage from the inferior pole of the incision. On exam, no erythema is noted. There is a 1 cm open area at the distal aspect of the incision. Two antibiotic beads were expressed from the superficial incision. I believe the "purulence" noted was actually antibiotic bead breakdown debris. I recommend continued dry dressings. Although I believe she can be safely discharged back to SNF, the patient apparently would prefer to stay in the hospital until Dr. Gomze is able to evaluate her.
[2016-05-17 20:54] VITALS: BP 135/100
[2016-05-18 00:38] VITALS: BP 138/80
[2016-05-18 03:50] VITALS: BP 138/78
--- NOTE | 2016-05-18 07:52 | PN- Orthopedic ---
Subjective Subjective: Complains of right posterior knee pain since last night. Cannot move it, very sharp pain. Denies shortness of breath, afebrile. Pain not well controlled due to knee pain. Tolerating diet, voiding spontaneously. Continues to have drainage to incision. Refusing to discharge to rehab until she sees [facility]. Objective Vital Signs and I&Os Vital Signs Date Time Temp Pulse Resp B/P Pulse O2 O2 Flow FiO2 Ox Delivery Rate 05/18 0350 99.0 88 20 138/78 92 Room Air 05/18 0038 98.4 81 20 138/80 93 Room Air 05/17 2054 99.0 88 20 135/100 94 Room Air 05/17 1408 98.1 87 20 120/66 94 05/17 1000 98.1 74 18 126/74 94 Room Air Room Air Intake & Output 05/18 0800 05/18 0000 05/17 1600 05/17 0800 05/17 0000 05/16 1600 Intake Total 1230 800 640 240 480 Output Total 223 950 4246 1000 900 350 Balance -750 580 -700 -360 -660 130 Intake, IV 130 300 240 Intake, Oral 1100 800 340 240 240 Number 1 1 0 Bowel Movements Output, Urine 423 692 0961 1000 900 350 Physical Exam: General: CAOx3, NAD. Lungs: Normal work of breathing Extremities: Right knee dressing clean, dry, intact, incision erythematous, no active drainage. Awa in place. 2+ DP pulses bilaterally. 5/5 dorsi/ plantarflexion. Slightly more edematous to RLE. Current Medications: Current Medications Sig/Yousuf Start time Last Medication Dose Route Stop Time Status Admin Acetaminophen 650 MG Q4P PRN 05/14 0630 AC 05/18 PO 0621 Apixaban 2.5 MG BID 05/13 1000 AC 05/17 PO 221 Bisacodyl 10 MG DAILY PRN 05/12 1400 AC SC Docusate Sodium 100 MG TID 05/12 1600 AC 05/17 PO 2216 Gabapentin 100 MG QPM 05/12 2200 AC 05/17 PO 2217 Hydromorphone HCl 2 MG Q3P PRN 05/16 1215 AC PO Hydromorphone HCl 4 MG Q3P PRN 05/16 1215 AC 05/18 PO 0659 Hydromorphone HCl 0.6 MG Q4-6 PRN PRN 05/16 1215 AC IV Lidocaine 1 PAT DAILY PRN 05/12 1345 AC 05/16 EXT 1558 Omeprazole 20 MG DAILY AC 05/13 0700 AC 05/18 PO 0621 Ondansetron HCl 4 MG Q6P PRN 05/12 1515 AC 05/15 IV 1953 Oxacillin Sodium 2,000 MG Q4H 05/14 1600 AC 05/18 Sodium Chloride 100 ML IV 05/20 1558 0734 Oxycodone HCl 30 MG 0000,1200 05/13 0000 AC 05/18 PO 0014 Polyethylene Glycol 17 GM DAILY 05/13 1000 AC 05/17 PO 0953 Potassium Chloride 40 MEQ ONCE ONE 05/17 0845 DC 05/17 PO 05/17 0846 0953 Rifampin 450 MG Q12H 05/13 0600 AC 05/18 PO 0620 Senna 187 MG BID 05/12 2200 AC 05/17 PO 2216 Simethicone 80 MG Q6P PRN 05/15 2115 AC 05/15 PO 2117 Zolpidem Tartrate 5 MG AT BEDTIME PRN 05/14 1230 AC 05/17 PO 2216 Results Last 48 Hours of Labs: Laboratory Tests 05/17 05/16 0615 0800 Chemistry Sodium (137 - 145 mmol/L) 140 Potassium (3.5 - 5.1 mmol/L) 3.3 L Chloride (98 - 107 mmol/L) 99 Carbon Dioxide (22 - 30 mmol/L) 32 H Anion Gap (5 - 16) 9 Hematology CBC w Diff NO MAN DIFF REQ NO MAN DIFF REQ WBC (4.8 - 10.8 /CUMM) 11.9 H 10.7 RBC (4.20 - 5.40 /CUMM) 2.73 L 2.80 L Hgb (12.0 - 16.0 G/DL) 7.2 *L 7.5 L Hct (37 - 47 %) 22.3 L 23.0 L MCV (81.0 - 99.0 FL) 81.8 82.0 MCH (27.0 - 31.0 PG) 26.5 L 26.7 L RDW (11.5 - 14.5 %) 14.7 H 14.3 Plt Count (130 - 400 /CUMM) 620 H 663 H MPV (7.4 - 10.4 FL) 7.5 7.9 Gran % (42.2 - 75.2 %) 68.9 63.7 Lymphocytes % (20.5 - 51.1 %) 22.3 25.2 Monocytes % (1.7 - 9.3 %) 7.3 8.5 Eosinophils % (0 - 5 %) 1.1 2.1 Basophils % (0.0 - 2.0 %) 0.4 0.5 Absolute Granulocytes (1.4 - 6.5 /CUMM) 8.2 H 6.8 H Absolute Lymphocytes (1.2 - 3.4 /CUMM) 2.7 2.7 Absolute Monocytes (0.10 - 0.60 /CUMM) 0.9 H 0.9 H Absolute Eosinophils (0.0 - 0.7 /CUMM) 0.1 0.2 Absolute Basophils (0.0 - 0.2 /CUMM) 0 0.1 PUBS MCHC (33.0 - 37.0 G/DL) 32.4 L 32.5 L Assessment/Plan Assessment/Plan This is a 72-year-old female status post washout of right total knee arthroplasty secondary to infection postoperative day #6. Currently on antibiotics, afebrile overnight. - pain control: will add valium - Ordered RLE ultrasound for new onset posterior right knee pain - Regular diet - Continue IV oxacillin per ID recommendations - Anticoagulation: Eliquis - follow up am labs: CBC, BMP - Continue PT, weight bearing as tolerated to operative extremity - Dispo: refusing rehab until sees Dr. Gomez, will discuss with case management and attending. Core Measures/Miscellaneous Venous Thromboembolism VTE Risk Factors: Age > 40, Surgery, Trauma major or lower ext VTE Contraindications: No Contraindications VTE Diagnosis: No VTE Type: NONE VTE Confirmed by (Test): NONE Beta Aramis Is Beta Aramis a Home Med? No Antibiotics Is Patient on Antibiotics? Yes If Yes: infection
--- NOTE | 2016-05-18 07:59 | PN- Att Addend ---
Attending Addendum Attending Brief Note Medical attending note. Patient is still having moderate amount of pain in the right knee with the drainage being slightly reduced there is some is swelling around the knee. Vital Signs Date Time Temp Pulse Resp B/P Pulse O2 O2 Flow FiO2 Ox Delivery Rate 05/18 0350 99.0 88 20 138/78 92 Room Air 05/18 0038 98.4 81 20 138/80 93 Room Air 05/17 2054 99.0 88 20 135/100 94 Room Air 05/17 1408 98.1 87 20 120/66 94 05/17 1000 98.1 74 18 126/74 94 Room Air Room Air Intake & Output 05/18 0800 05/18 0000 05/17 1600 Intake Total 660 1230 800 Output Total 912 412 9618 Balance -90 580 -700 Intake, IV 260 130 Intake, Oral 400 1100 800 Number 1 1 Bowel Movements Output, Urine 876 296 2031 On examination Patient awake alert oriented. Neck is supple JVD is not raised S1-S2 is normal Lungs clear Abdomen is soft nontender bowel sounds are present Right extremity shows minimal edema around the knee with drainage. Tenderness around the site of incision. Assessment Infection of the prosthetic right knee. Patient continued to have IV oxacillin plus rifampin.
[2016-05-18 08:31] VITALS: BP 122/80
[2016-05-18 08:36] LABS: ABSOLUTE BASOPHIL COUNT 0.1 /CUMM (0.0-0.2); ABSOLUTE EOSINOPHIL COUNT 0.3 /CUMM (0.0-0.7); ABSOLUTE GRANULOCYTE CT 7.5 /CUMM (1.4-6.5); ABSOLUTE LYMPH COUNT 3.4 /CUMM (1.2-3.4); BASOPHIL % 0.5 % (0.0-2.0); EOSINOPHIL % 2.1 % (0-5); GRANULOCYTE % 61.5 % (42.2-75.2); HEMATOCRIT 24.8 % (37-47); MEAN CORPUSCULAR HGB 26.9 PG (27.0-31.0); MEAN CORPUSCULAR HGB CONC 32.5 G/DL (33.0-37.0); MEAN CORPUSCULAR VOLUME 82.7 FL (81.0-99.0); MEAN PLATELET VOLUME 7.6 FL (7.4-10.4); PLATELET COUNT 659 /CUMM (130-400); RBC DISTRIBUTION WIDTH 14.9 % (11.5-14.5); WHITE BLOOD CELL COUNT 12.3 /CUMM (4.8-10.8)
[2016-05-18] MEDS ORDERED: OXACILLIN2 GM/50 M1 IV (12:42)
--- NOTE | 2016-05-18 12:57 | ULTRASOUND REPORT ---
EXAMINATION: RIGHT LOWER EXTREMITY VENOUS ULTRASOUND CLINICAL INFORMATION: Right calf tenderness COMPARISON: None. TECHNIQUE: Doppler spectral analysis and color flow Doppler imaging was performed of the right lower extremity. Compression and augmentation maneuvers were performed. FINDINGS: The right common femoral, femoral, popliteal and calf veins were well-identified and normal. They demonstrate normal compressibility and color fill-in. No Ghosh's cyst is seen. IMPRESSION: No evidence for right lower extremity deep vein thrombosis.
[2016-05-18] MEDS ORDERED: VALIUM10 M1 PO (13:15)
[2016-05-18] MEDS ORDERED: ELIQUIS2.5 M1 PO (13:15)
[2016-05-18] MEDS ORDERED: DOCUSATE SODIU100 M3 PO (13:15)
[2016-05-18] MEDS ORDERED: MIRALAX119 GM PO (13:16)
[2016-05-18] MEDS ORDERED: HYDROMORPHONE HC2 M1 PO ×2 (13:16→16:19)
[2016-05-18] MEDS ORDERED: RIFAMPIN150 MG PO (13:17)
[2016-05-18] MEDS ORDERED: ZOLPIDEM TARTRAT5 M1 PO (13:17)
[2016-05-18 13:22] VITALS: BP 122/80
[2016-05-18 14:42] VITALS: BP 118/88; BP 122/80
--- NOTE | 2016-05-18 15:58 | PN- Infect Dx ---
Subjective Subjective: Afebrile. She continues to complain of right knee pain and drainage, which increases with ambulation Objective Last 24 Hrs of Vital Signs/I&O Vital Signs Date Time Temp Pulse Resp B/P Pulse O2 O2 Flow FiO2 Ox Delivery Rate 05/18 1442 98.1 91 18 118/88 91 Room Air 05/18 1322 97.9 87 18 122/80 05/18 0831 97.9 87 18 122/80 95 Room Air 05/18 0350 99.0 88 20 138/78 92 Room Air 05/18 0038 98.4 81 20 138/80 93 Room Air 05/17 2054 99.0 88 20 135/100 94 Room Air Intake & Output 05/18 1600 05/18 0800 05/18 0000 Intake Total 3382 014 0174 Output Total 9694 548 0273 Balance -330 -90 -320 Intake, IV 220 260 130 Intake, Oral 0020 838 0918 Number 1 1 Bowel Movements Output, Urine 2891 315 1950 Physical Exam Other Physical Findings: She appears uncomfortable Extremities right knee swelling, with purulent appearing drainage on the dressing, and with one bead expressed from the incision, with no erythema but tenderness on palpation; PICC in the right upper extremity with no inflammation at the site Results Last 24 Hours of Lab Results: Laboratory Tests 05/18 0630 Chemistry Sodium (137 - 145 mmol/L) 138 Potassium (3.5 - 5.1 mmol/L) 3.5 Chloride (98 - 107 mmol/L) 96 L Carbon Dioxide (22 - 30 mmol/L) 30 Anion Gap (5 - 16) 11 BUN (7 - 17 mg/dL) 7 Creatinine (0.5 - 1.0 mg/dL) 0.5 Estimated GFR (>60 ml/min) > 60 BUN/Creatinine Ratio (7 - 25 %) 14.0 Hematology CBC w Diff NO MAN DIFF REQ WBC (4.8 - 10.8 /CUMM) 12.3 H RBC (4.20 - 5.40 /CUMM) 3.00 L Hgb (12.0 - 16.0 G/DL) 8.1 L Hct (37 - 47 %) 24.8 L MCV (81.0 - 99.0 FL) 82.7 MCH (27.0 - 31.0 PG) 26.9 L RDW (11.5 - 14.5 %) 14.9 H Plt Count (130 - 400 /CUMM) 659 H MPV (7.4 - 10.4 FL) 7.6 Gran % (42.2 - 75.2 %) 61.5 Lymphocytes % (20.5 - 51.1 %) 27.4 Monocytes % (1.7 - 9.3 %) 8.5 Eosinophils % (0 - 5 %) 2.1 Basophils % (0.0 - 2.0 %) 0.5 Absolute Granulocytes (1.4 - 6.5 /CUMM) 7.5 H Absolute Lymphocytes (1.2 - 3.4 /CUMM) 3.4 Absolute Monocytes (0.10 - 0.60 /CUMM) 1.0 H Absolute Eosinophils (0.0 - 0.7 /CUMM) 0.3 Absolute Basophils (0.0 - 0.2 /CUMM) 0.1 PUBS MCHC (33.0 - 37.0 G/DL) 32.5 L Last 24 Hours of Titus Results: No recent cultures Recent Imaging Studies: Right lower extremity Doppler May 18 negative Assessment/Plan Impression: Persistent pain and what appears to be purulent drainage from the right knee incision, but with Ortho evaluation suggesting that this drainage represents antibiotic bead breakdown debris. 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 She remains on Oxacillin and Rifampin which can be continued. Suggestion: 1. Further management of her right knee per Ortho 2. Continue Oxacillin and Rifampin 3. Weekly CBC, ESR and CMP while on antibiotics
--- NOTE | 2016-05-18 17:34 | NUR ---
PATIENT DISCHARGED TO [facility]. DISCHARGE PACKET GIVEN TO AMBULANCE ATTENDANTS. PICC LINE INTACT AND FLUSHED PER PROTOCOL. PAIN MHEREDICATION GIVEN PRIOR TO DISCHARGED.
[2016-06-25] MEDS ORDERED: PERCOCET 10-321 EACH PO (12:35)
[2016-06-25] MEDS ORDERED: BACTRIM 400-801 EACH PO (12:35)
[2016-06-25] MEDS ORDERED: SENNA8.6 M3 PO (12:35)
[2016-06-25] MEDS ORDERED: NEURONTIN300 M1 PO (12:36)
== END 2016-05-18 17:21 | DRG 486 ==
LOC: ENRESERVDT → ENRESERVTM → ERH 09:55 → ENPENDDIS 13:37 → PACUH 13:37 → 2NB 13:37
PROVIDERS: Nurse Practitioner; Physician Assistant; Physician Assistant Medical; Physician Assistant Surgical; ADMIT Orthopaedic Surgery
PROC: 0SBC0ZZ Excision of Right Knee Joint, Open Approach (ICD-10-PCS; principal; 2016-05-12)
PROC: 0SUV09Z Supplement Right Knee Joint, Tibial Surface with Liner, Open Approach (ICD-10-PCS; principal; 2016-05-12)
PROC: 3E0U029 Introduction of Other Anti-infective into Joints, Open Approach (ICD-10-PCS; principal; 2016-05-12)
PROC: 0SPC09Z Removal of Liner from Right Knee Joint, Open Approach (ICD-10-PCS; principal; 2016-05-12)
DX: T84.53XA Infection and inflammatory reaction due to internal right knee prosthesis, initial encounter (principal); Z68.41 Body mass index [BMI] 40.0-44.9, adult; E66.01 Morbid (severe) obesity due to excess calories; I10 Essential (primary) hypertension; B95.61 Methicillin susceptible Staphylococcus aureus infection as the cause of diseases classified elsewhere; Z96.651 Presence of right artificial knee joint; K21.9 Gastro-esophageal reflux disease without esophagitis; I71.9 Aortic aneurysm of unspecified site, without rupture; M54.9 Dorsalgia, unspecified; G89.29 Other chronic pain
CPT/HCPCS: 2NBP; 87070; 87075; 87184; 36415; 82436; 87040; 87147; 93005; 93010; 97110-GO; 97116-GO; 97162-GP; 97530-GO; C1769; J0131; J0690; J1100; J1170; J1885; J2250; J2405; J3010; J3370; J7042

== ENCOUNTER → 2016-06-28 | Day surgery (SDC) | payer OTHER ==
[~2016-06-28] VITALS: Ht 154.9 cm; Wt 103.4 kg
[~2016-06-28] MED LIST changes: +BACTRIM 400-801 EACH PO; +COMPAZINE10 M1 PO; +DOCUSATE SODIU100 M3 PO; +ELIQUIS2.5 M1 PO; +HYDROMORPHONE HC2 M1 PO; +MELATONIN3 M4 PO; +MIRALAX119 GM PO; +NEURONTIN100 M1 PO; +NEURONTIN300 M1 PO; +OMEPRAZOLE20 M3 PO; +OXACILLIN2 GM/50 M1 IV; +OXYCODONE-ACET1 EAC1 PO; +RIFAMPIN150 MG PO; +VALIUM10 M1 PO; +ZOLPIDEM TARTRAT5 M1 PO
--- NOTE | 2016-06-28 10:39 | Operative Report ---
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 She underwent an irrigation debridement and placement of antibiotic beads. She has been treated for pain management for several years and does have difficulty with tolerating postoperative pain. Getting her to move her knee and physical therapy was exceedingly difficult. She developed arthrofibrosis. Risks and benefits of the procedure were discussed with the patient at length. Risks include but are not limited to nerve damage, muscle damage, infection, blood loss, blood clots, pulmonary embolus, and even . The patient agreed to the above risks and elected to proceed with surgery. Operative/Procedure Note Note: Anesthesia was induced by the anesthesia team. The patient's knee was taken from full extension and flexed up. Significant stiffness was noted at 30 of flexion. Gentle manipulation was performed and scar tissue was felt to break free during flexion. The knee was then able to flex to 120. A block was then performed by the anesthesia team and the patient was transferred to PACU in stable condition.
== END ==
LOC: STS 01:50
DX: M24.661 Ankylosis, right knee (principal); M17.11 Unilateral primary osteoarthritis, right knee; Z96.651 Presence of right artificial knee joint; I71.2 Thoracic aortic aneurysm, without rupture; Z87.891 Personal history of nicotine dependence
CPT/HCPCS: J0131; J0690; J2250

== ENCOUNTER 2017-03-21 17:00 | Inpatient (IN) | payer OTHER ==
[~2017-03-21] VITALS: Ht 157.5 cm; Wt 92.5 kg
[~2017-03-21 17:00] MED LIST changes: +CYCLOBENZAPRINE10 M1 PO
--- NOTE | 2017-03-21 17:56 | ED UPPER/LOWER EXTREMITY COMPL ---
See Addendum History of Present Illness General Chief Complaint: General Adult Stated Complaint: ? BLOOD CLOT LEG PAIN RT LEG Source: patient, old records Exam Limitations: no limitations Vital Signs & Intake/Output Vital Signs & Intake/Output Vital Signs Date Time Temp Pulse Resp B/P B/P Pulse O2 O2 Flow FiO2 Mean Ox Delivery Rate 03/218 81 119/71 03/21 2208 97.7 03/21 2201 97.7 80 16 98/53 95 Room Air 03/21 1927 100.5 94 20 134/70 99 Room Air 03/21 1926 100.5 03/21 1730 97.9 98 20 130/79 98 Room Air ED Intake and Output 03/22 0000 03/21 1200 Intake Total 1100 Output Total 400 Balance 700 Intake, IV 1100 Output, Urine 400 Patient 178 lb Weight Allergies Coded Allergies: ciprofloxacin (From Cipro) (Intermediate, HIVES 09/02/15) adhesive tape (RASH; PER PT OKAY WITH PAPER TAPE 03/21/17) diphenhydramine (BLISTERS IN MOUTH 03/21/17) Triage Note: PT SENT BY ORTHO FOR US R KNEE TO RULE OUT DVT, PT STATES THAT SHE HAD SURGERY LAST YEAR AND HAS HAD NOTHING BUT PROBLEMS, PT STATES THAT SHE GOT OUT OFF THE POOL SATURDAY AND INSTANTLY SHE COULD NOT PUT PRESSURE ON IT AN IT SWELLED UP Triage Nurses Notes Reviewed? yes Onset: Abrupt Duration: day(s): (6), constant, getting worse Timing: recent history Severity: severe Severity Numbers: 10 Pain/Injury Location: Right: Knee. Method of Injury: unknown No Modifying Factors: none Associated Symptoms: swelling, redness HPI: 56 year old female presents sent in by her orthopedist dr cruz for evaluation after seeing him today. Patient has history of right knee arthroplasty in april 2015 complicated by a septic joint that grew out Staphylococcus aureus requiring iv abx and washout in May of 2015. The patient states that since Saturday she's had intermittent fevers as high as 103.2. She states that she developed sudden onset of pain and redness and swelling to her knee after she was climbing out of a pool 6 days ago. She denies directed falling on the leg slipping or twisting. She denies nausea vomiting. She's been taking Dilaudid by mouth at home without any improvement in pain. She denies any hip or ankle pain (Mushtaq Amaya) Reconcile Medications Cyclobenzaprine HCl 5 MG TABLET 1 TAB PO PRN MUSCLE SPASMS (Reported) Gabapentin 400 MG CAPSULE 1 CAP PO QPM NERVE PAIN (Reported) Hydromorphone HCl 8 MG TABLET 1 TAB PO TID PAIN (Reported) Meloxicam 15 MG TABLET 1 TAB PO DAILY PAIN/INFLAMMATION (Reported) Omeprazole 40 MG CAPSULE.DR 1 CAP PO PRN GI (Reported) Oxycodone HCl (Oxycontin) 40 MG TAB.ER.12H 1 TAB PO DAILY PAIN (Reported) Sennosides (Senna) 8.6 MG TABLET 5 TAB PO DAILY CONSTIPATION (Reported) (Stefan MARTINEZ,Jerry) Past History Travel History Traveled to [place] past 21 day No Medical History Any Pertinent Medical History? see below for history Neurological: NONE EENT: NONE Cardiovascular: aortic aneurysm Respiratory: NONE Gastrointestinal: GERD Hepatic: NONE Renal: nephrolithiasis, RENAL ARTERY ANEURYSM Musculoskeletal: CHRONIC BACK PAIN Psychiatric: NONE Endocrine: NONE Blood Disorders: NONE Cancer(s): NONE GENERAL TECHNICIAN/Reproductive: NONE History of MRSA: No History of VRE: No History of CDIFF: No Surgical History Surgical History: hysterectomy, knee replacement (right knee), BACK SURGERY BLADDER LIFT, SHOULDER SURGERY, BUNIONECTOMY BOLTH FEET Psychosocial History Who do you live with Spouse What is your primary language Arabic Tobacco Use: Never used ETOH Use: denies use Illicit Drug Use: denies illicit drug use Family History Hx Contributory? No (Mushtaq Amaya) Review of Systems Review of Systems Constitutional: Reports: see HPI. Comments Review of systems: See HPI, All other systems negative. Constitutional: fever HEENT: no sore throat no congestion Cardiovascular: No chest pain Skin: see hpi Respiratory: No dyspnea no cough GI: No nausea no vomiting, : No dysuria Muscle skeletal: No joint pain, no back pain, no neck pain, Neurologic: no headache Heme/endocrine: No bruising (Mushtaq Amaya) Physical Exam Physical Exam General Appearance: well developed/nourished, no apparent distress, alert Comments: Well-developed well-nourished patient in no apparent distress. HEENT: Atraumatic, extraocular motion intact Neck: Supple, FROM Back: FROM Cardiovascular: Regular rate and rhythms no murmur Respiratory: No respiratory distress. Patient speaking in full complete sentences. Breath sounds clear to auscultation bilaterally: NO W/R/R upper Extremities: full range of motion Hip/Pelvis: Atraumatic/Stable. FROM. No pain with pelvic compression Knee: (+) large effusion, overlying erythema tenderness to palpation over the Right knee, no discharge, the incision is dry and intact. No laxity. (+) pain with ROM Leg: Atraumatic. Nontender. negative homans, No edema, 5 out of 5 strength in the lower extremity, normal dorsiflexion of great toe bilaterally, gross sensation is intact Ankle/Foot: Atraumatic/stable. Skin intact. FROM. No swelling, no effusion. No laxity on exam Pulses: Normal/equal DP/PT pulses bilaterally. Brisk cap refill Neuro: awake, alert, and oriented to person, place and time. There were no obvious focal neurologic abnormalities. Skin: Warm & dry;No appreciable rash on exposed skin Psych: Mood affect normal, normal memory normal judgment. (Colton COHEN,Mushtaq) Progress Differential Diagnosis: contusion, DVT, fracture, septic arthritis, sprain, tendon injury Plan of Care: Orders Procedure Date/time Status Regular Diet 03/22 B Active CBC WITHOUT DIFFERENTIAL 03/22 0600 Active BASIC ELECTROLYTES PLUS BUN&CR 03/22 0600 Active Pathway - chart 03/22 0053 Active House Staff 03/22 0053 Active Patient Data 03/22 0053 Active Code Status 03/22 0053 Active BLOOD CULTURE 03/22 0033 Active Patient Data 03/22 0011 Active VTE Mechanical Prophylaxis 03/22 UNK Active URINE DRUG SCREEN FOR ER ONLY 03/21 2344 Complete EKG 03/21 2324 Active URINALYSIS 03/21 2313 Complete OXYGEN SETUP (GEN) 03/21 2307 Active Saline Lock 03/21 2307 Active Admit to inpatient 03/21 2307 Active Vital Signs 03/21 2307 Active Activity/Ambulation 03/21 2307 Active Code Status 03/21 2307 Complete RAPID VIRAL INFLUENZA A 03/21 2019 Complete Add-on Test (ER Only) 03/21 1957 Active Intake & Output 03/21 1929 Active Add-on Test (ER Only) 03/21 1829 Active PARTIAL THROMBOPLASTIN TIME 03/21 1821 Complete PROTHROMBIN TIME 03/21 1821 Complete C-REACTIVE PROTEIN 03/21 1821 Complete BLOOD CULTURE 03/21 1807 Active SYNOVIAL FLUID CELL COUNT 01/18 1807 Active LACTIC ACID 03/21 1806 Complete WESTERGREN SED RATE 03/21 1806 Complete COMPREHENSIVE METABOLIC PANEL 03/21 1806 Complete CBC WITHOUT DIFFERENTIAL 03/21 1806 Complete Current Medications Sig/Yousuf Start time Last Medication Dose Stop Time Status Admin Gabapentin 400 MG QPM 03/22 2200 UNVr (Neurontin) Enoxaparin Sodium 40 MG DAILY 03/22 1000 UNVr (Lovenox) Oxycodone HCl 40 MG DAILY 03/22 1000 UNVr (OxyCONTIN) Omeprazole 40 MG DAILY AC 03/22 0700 UNVr (Prilosec) Hydromorphone HCl 2 MG Q6P PRN 03/22 99 UNVr (Dilaudid) Polyethylene Glycol 17 GM DAILY PRN 03/22 99 UNVr (Miralax) Senna/Docusate Sodium 2 TAB DAILY PRN 03/22 99 UNVr (Senokot S) Ceftriaxone Sodium 1,000 MG ONCE ONE 03/21 1999 CAN (Rocephin) 03/21 2000 Vancomycin HCl 1,000 MG ONCE ONE 03/21 1999 CAN Sodium Chloride 250 ML 03/21 2058 (Normal Saline 0.9%) Laboratory Tests 03/21/17 2345: Urine Opiates Screen 2871.00 H, Methadone Screen < 40, Barbiturate Screen < 60, Ur Phencyclidine Scrn < 6.00, Amphetamines Screen < 100, U Benzodiazepines Scrn < 85, Urine Cocaine Screen < 50, Urine Cannabis Screen < 5.00, Urinalysis LIGHT H, Urine Color YEL, Urine Clarity HAZY H, Urine pH 6.5, Ur Specific [place] <= 1.005, Urine Protein NEG, Urine Ketones NEG, Urine Nitrite NEG, Urine Bilirubin NEG, Urine Urobilinogen 0.2, Ur Leukocyte Esterase TRACE H, Ur Microscopic SEDIMENT EXAMINED, Urine RBC 5-10 H, Urine WBC 3-5 H, Ur Epithelial Cells MOD H, Urine Bacteria FEW H, Urine Mucus FEW, Urine Hemoglobin SMALL H, Urine Glucose NEG 03/21/177: Lactic Acid Cancelled 03/21/17 2100: Lymphocytes 77, % Normal PMNs 86, [facility] Test 03/21/17 1821: Anion Gap 16, Estimated GFR > 60, BUN/Creatinine Ratio 23.8, Glucose 88, Lactic Acid 1.2, Calcium 9.1, Total Bilirubin 0.6, AST 18, ALT 29, Alkaline Phosphatase 143 H, C-Reactive Prot, Quant > 9.0 H, Total Protein 6.7, Albumin 3.5, Globulin 3.2, Albumin/Globulin Ratio 1.1, PT 14.0 H, INR 1.34 H, APTT 29, CBC w Diff MAN DIFF ORDERED, RBC 4.08 L, MCV 79.2 L, MCH 25.7 L, RDW 16.9 H, MPV 8.4, Gran % 85.6 H, Lymphocytes % 7.3 L, Monocytes % 6.4, Eosinophils % 0.7, Basophils % 0, Absolute Granulocytes 16.2 H, Segmented Neutrophils 75, Band Neutrophils 5, Absolute Lymphocytes 1.4, Lymphocytes 8 L, Monocytes 10 H, Absolute Monocytes 1.2 H, Eosinophils 2, Absolute Eosinophils 0.1, Absolute Basophils 0, Platelet Estimate INCREASED, Normocytic RBCs VERIFIED, Normochromic RBCs VERIFIED, Anisocytosis 1+, Microcytic Cells 1+, PUBS MCHC 32.5 L, ESR Westergren 127 H 03/21/17 180: Fluid Glucose Cancelled, Fluid Total Protein Cancelled Microbiology 03/22 0033 BLOOD: Blood Culture - ORD 03/21 2033 NASOPHARYN: Influenza Virus A & B Rapid Smear - COMP 03/21 182 BLOOD: Blood Culture - RECD 03/21 1806 BODY FLUID: Body Fluid Culture - CAN Cancelled: NO SPECIMEN RECEIVED FOR TESTING FLO.PEVI INFORMED 03/21 1806 BODY FLUID: Gram Stain - CAN Cancelled: NO SPECIMEN RECEIVED FOR TESTING FLO.PEVI INFORMED 03/21 1806 BLOOD: Blood Culture - CAN Cancelled: SPECIMEN NEVER RECEIVED. PATIENT REFUSING PER FLO.ALLISON pt med with dilaudid 2mg iv, us xray ordered. case d/w dr plata betadine prep, wheel made using lidocaine 1%, anestheized well, using ultrasound guidance- i confirmed placement within the effusiion however I was unable to aspirate fluid from effusion, dr plata at bedside during aspiration, also unable to aspirate fluid case d/w dr cruz pt's ortho- will contact dr nieves to discuss plan of care. no abx until joint aspiration. d/w dr nieves- advised to attempt joint aspiration again and call back with cell count again using ultrasound guidance joint athrocentesis performed. I confirmed placement with the effusion with my needle pt medicated with lidocaine 1%, using an 16 and 18 gauge needle a slow/gelatin like bloody discharge illicited. no purulence noted i once again spoke with dr nieves after the cell count was unable to be performed secodnary to clotting. I told him only results able to be obtained included the polys and lymphs- which he advised you would expect to be high. pts crp and esr chronically elevated dating back to 2016 complications. he advised there is nothing surgical regquired at this time, to trend cultures and advised pt should be admitted to medicine on repeat eval pt with fever, and now hypotensive, after discussion with dr plata will treat despite being unable to obtain cell count from arthrocentesis 2330- called to pts room as pt is anxious tremulous stating her legs "feel tight " and arms are shaking. pt reports to tightness in head. noted tremors, pt med with ativan 1mg iv, cxr ordered. lugns are cta b/l, no rashes noted to skin. PATIENT: ANN VALDES PRESENT AGE: 56 PATIENT ACCOUNT NO: [id number] : 56 LOCATION: [facility] ORDERING PHYSICIAN: Mushtaq COHEN SERVICE DATE: 03/21/17 EXAM TYPE: RAD - XRY-KNEE COMPLETE RIGHT EXAMINATION: RIGHT KNEE 3 VIEWS CLINICAL INFORMATION: Right knee swelling. Pain. COMPARISON: October 2015. TECHNIQUE: AP, lateral, oblique views of the right knee were obtained. FINDINGS: A right knee prosthesis is intact. There is subtle lucency identified between the proximal tibial component and the adjacent bone. This is best demonstrated on the AP and oblique views. There is a moderate to large knee joint effusion. There is soft tissue swelling about the knee. No acute fractures identified. IMPRESSION: Large knee joint effusion with associated soft tissue swelling. There is nonspecific lucency identified between the proximal tibial component and the adjacent bone. This could correspond to loosening or infection. The overall appearance is suspicious, though nonspecific for, infection or inflammation. DICTATED BY: Chandana Aguilar MD DATE/TIME DICTATED:03/21/171935 IT SYSTEMS ANALYST CONSULTANT:LANDON DATE/TIME TRANSCRIBED:03/21/171935 CONFIDENTIAL, DO NOT COPY WITHOUT APPROPRIATE AUTHORIZATION. <Electronically signed in Other Vendor System> SIGNED BY: Chandana Aguilar MD 03/21/171942 Diagnostic Imaging: Viewed by Me: Radiology Read, Ultrasound. Discussed w/RAD: Radiology Read, Ultrasound. Radiology Impression: PATIENT: ANN VALDES PRESENT AGE: 56 PATIENT ACCOUNT NO: [id number] : 56 LOCATION: [facility] ORDERING PHYSICIAN: Mushtaq COHEN SERVICE DATE: 03/21/17 EXAM TYPE: US - US-UNILATERAL VENOUS DOPPLER EXAMINATION: US TRIPLEX LOWER EXTREMITY, RIGHT CLINICAL INFORMATION: Right lower extremity pain and edema. COMPARISON: None TECHNIQUE: Color-flow triplex imaging with spectral analysis and compression Doppler were performed on the lower extremity. FINDINGS: Respiratory variation, normal compression and augmented flow are noted throughout the lower extremity. The visualized common femoral vein, superficial femoral vein, profunda femoral vein, popliteal vein and midcalf peroneal and posterior tibial venous segments show no evidence of deep venous thrombosis. There is a complicated 4.9 x 3.0 x 8.7 popliteal fossa Ghosh's cyst. This extends superiorly towards the suprapatellar joint space. IMPRESSION: No evidence for deep venous thrombosis. Complicated popliteal fossa Ghosh's cyst. DICTATED BY: Chandana Aguilar MD DATE/ TIME DICTATED:03/21/172037 IT SYSTEMS ANALYST CONSULTANT:LANDON DATE/TIME TRANSCRIBED: 03/21/172037 CONFIDENTIAL, DO NOT COPY WITHOUT APPROPRIATE AUTHORIZATION. < Electronically signed in Other Vendor System> SIGNED BY: Chandana Aguilar MD 03/21/172043, PATIENT: ANN VALDES PRESENT AGE: 56 PATIENT ACCOUNT NO: [id number] : 56 LOCATION: [facility] ORDERING PHYSICIAN: Mushtaq COHEN SERVICE DATE: 03/21/17532 EXAM TYPE: RAD - XRY- PORTABLE CHEST XRAY EXAMINATION: XR PORTABLE CHEST CLINICAL INFORMATION: Dyspnea COMPARISON: 05/14/2016 TECHNIQUE: Portable frontal view of the chest was obtained. FINDINGS: Low lung volumes. Bronchovascular crowding. Bronchial wall thickening noted. No pleural effusion or pneumothorax. No dense consolidation. The cardiomediastinal silhouette is within normal limits. IMPRESSION: No dense consolidation. Bronchial wall thickening can be seen with a small airways process such as asthma or atypical/viral infection. DICTATED BY: Regis MARTINEZ, Bassam DATE/TIME DICTATED:03/21/172335 IT SYSTEMS ANALYST CONSULTANT:LANDON DATE/TIME TRANSCRIBED:03/21/172335 CONFIDENTIAL, DO NOT COPY WITHOUT APPROPRIATE AUTHORIZATION. <Electronically signed in Other Vendor System> SIGNED BY: Regis MARTINEZ,Bassam 03/21/17 2340 (Mushtaq Amaya) Departure Departure Time of Disposition: 2335 Disposition: STILL A PATIENT Condition: Stable Clinical Impression Primary Impression: Cellulitis Qualifiers: Site of cellulitis: extremity Site of cellulitis of extremity: lower extremity Laterality: right Qualified Code: L03.115 - Cellulitis of right lower limb Secondary Impressions: Knee joint effusion Qualifiers: Laterality: right Qualified Code: M25.461 - Effusion, right knee Referrals: Adalberto Davenport MD (PCP/Family) Departure Forms: Customer Survey General Discharge Information Admission Note Spoke With: Yoav Elliott MD Documentation of Exam: Documentation of any treatments & extenuating circumstances including Concerns Regarding Discharge (functional status, medication knowledge or non-compliance, living conditions, etc.) that warrant an admission rather than observation: ortho consult, trend labs and cultures, iv abx, iv pain control, premature discharge would be medically harmful (Mushtaq Amaya) PA/HELP DESK TECHNICIAN Co-Sign Statement Statement: ED Attending supervision documentation- x I saw and evaluated the patient. I have also reviewed all the pertinent lab results and diagnostic results. I agree with the findings and the plan of care as documented in the PA's/HELP DESK TECHNICIAN's documentation. Right knee ORIF with post op complications, fever, erythema, LROM, significant pain. Suspect septic joint with overlying cellulitis. [] I have reviewed the ED Record and agree with the PA's/HELP DESK TECHNICIAN's documentation. [] Additions or exceptions (if any) to the PAs/HELP DESK TECHNICIAN's note and plan are summarized below: [] (Stefan MARTINEZ,Jerry) Procedures Comments Comments: arthrocentesis of rightknee (Mushtaq Amaya)
[2017-03-21 19:04] LABS: ABSOLUTE BASOPHIL COUNT 0 /CUMM (0.0-0.2); ABSOLUTE EOSINOPHIL COUNT 0.1 /CUMM (0.0-0.7); ABSOLUTE GRANULOCYTE CT 16.2 /CUMM (1.4-6.5); ABSOLUTE LYMPH COUNT 1.4 /CUMM (1.2-3.4); ABSOLUTE MONOCYTE COUNT 1.2 /CUMM (0.10-0.60); BASOPHIL % 0 % (0.0-2.0); EOSINOPHIL % 0.7 % (0-5); GRANULOCYTE % 85.6 % (42.2-75.2); HEMATOCRIT 32.3 % (37-47); MEAN CORPUSCULAR HGB 25.7 PG (27.0-31.0); MEAN CORPUSCULAR HGB CONC 32.5 G/DL (33.0-37.0); MEAN CORPUSCULAR VOLUME 79.2 FL (81.0-99.0); MEAN PLATELET VOLUME 8.4 FL (7.4-10.4); PLATELET COUNT 503 /CUMM (130-400); RBC DISTRIBUTION WIDTH 16.9 % (11.5-14.5); RED BLOOD CELL CT 4.08 /CUMM (4.20-5.40)
[2017-03-21 19:10] LABS: PTT 29 SEC (25-37)
--- NOTE | 2017-03-21 19:43 | RADIOLOGY REPORT ---
EXAMINATION: RIGHT KNEE 3 VIEWS CLINICAL INFORMATION: Right knee swelling. Pain. COMPARISON: October 2015. TECHNIQUE: AP, lateral, oblique views of the right knee were obtained. FINDINGS: A right knee prosthesis is intact. There is subtle lucency identified between the proximal tibial component and the adjacent bone. This is best demonstrated on the AP and oblique views. There is a moderate to large knee joint effusion. There is soft tissue swelling about the knee. No acute fractures identified. IMPRESSION: Large knee joint effusion with associated soft tissue swelling. There is nonspecific lucency identified between the proximal tibial component and the adjacent bone. This could correspond to loosening or infection. The overall appearance is suspicious, though nonspecific for, infection or inflammation.
--- NOTE | 2017-03-21 20:44 | ULTRASOUND REPORT ---
EXAMINATION: US TRIPLEX LOWER EXTREMITY, RIGHT CLINICAL INFORMATION: Right lower extremity pain and edema. COMPARISON: None TECHNIQUE: Color-flow triplex imaging with spectral analysis and compression Doppler were performed on the lower extremity. FINDINGS: Respiratory variation, normal compression and augmented flow are noted throughout the lower extremity. The visualized common femoral vein, superficial femoral vein, profunda femoral vein, popliteal vein and midcalf peroneal and posterior tibial venous segments show no evidence of deep venous thrombosis. There is a complicated 4.9 x 3.0 x 8.7 popliteal fossa Ghosh's cyst. This extends superiorly towards the suprapatellar joint space. IMPRESSION: No evidence for deep venous thrombosis. Complicated popliteal fossa Ghosh's cyst.
[2017-03-21] MEDS ORDERED: HYDROMORPHONE HC8 M1 PO (21:21)
[2017-03-21] MEDS ORDERED: LIDOCAINE1 EACH TOP (21:21)
[2017-03-21] MEDS ORDERED: GABAPENTIN400 M2 PO (21:21)
[2017-03-21] MEDS ORDERED: MELOXICAM15 M1 PO (21:22)
[2017-03-21] MEDS ORDERED: IBUPROFEN800 M1 PO (21:22)
[2017-03-21] MEDS ORDERED: CYCLOBENZAPRINE5 M2 PO (21:23)
[2017-03-21] MEDS ORDERED: OXYCONTIN40 M1 PO (21:24)
[2017-03-21] MEDS ORDERED: OMEPRAZOLE40 M1 PO (21:25)
--- NOTE | 2017-03-21 23:40 | RADIOLOGY REPORT ---
EXAMINATION: XR PORTABLE CHEST CLINICAL INFORMATION: Dyspnea COMPARISON: 05/14/2016 TECHNIQUE: Portable frontal view of the chest was obtained. FINDINGS: Low lung volumes. Bronchovascular crowding. Bronchial wall thickening noted. No pleural effusion or pneumothorax. No dense consolidation. The cardiomediastinal silhouette is within normal limits. IMPRESSION: No dense consolidation. Bronchial wall thickening can be seen with a small airways process such as asthma or atypical/viral infection.
--- NOTE | 2017-03-22 00:18 | History & Physical ---
Arsen MARTINEZ,[facility] 03/22/17 0017: General Information and HPI MD Statement: I have seen and personally examined ANN VALDES and documented this H&P. The patient is a 56 year old F who presented with a patient stated chief complaint of [R knee swelling and pain]. Source of Information: patient Exam Limitations: no limitations History of Present Illness: The patient is a 56-year-old female who is presenting to [place] ED on 03/21 with complaint of with right knee swelling and pain. She has past medical history of right total knee arthroplasty done on 04/26/2016 for degenerative joint disease. Her postop course was complicated by MSSA prosthetic joint infection. She underwent right knee irrigation and debridement on 05/12/2016 and was discharged on 6 weeks course of antibiotics oxacillin and rifampin via PICC line. She went back to the OR on 06/28/2016 for breakdown of scar tissue. Ever since then patient has been experiencing right knee pain intermittently. She states that it went downhill since her surgery. She takes Dilaudid and OxyContin for pain control. She was in usual state of health until Saturday when she experienced sudden pain in her right knee been coming out of the swimming pool. Since Saturday her knee has been swollen, red and painful. She has been experiencing low-grade fevers up to 100.5 at home. Patient denies any trauma to her right knee. Because of worsening pain patient increased her home dose of Dilaudid. She has been also experiencing nausea which can be attributed to increased dose of pain medications. Patient also reports that she has been limping and using walker since this episode, which she does not use on her baseline. On review of system patient denies chills abdominal pain diarrhea and after any urinary symptoms. No chest pain or shortness of breath. Patient saw her orthopedic doctor who recommended her to come to the ED for further evaluation. During the encounter patient reported having a panic attack earlier. She states that she will stay here tonight and will report to [facility] tomorrow. She appears to be drowsy likely secondary to pain medications but is able to provide history and remembers her medication list. 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 Home Who Do You Live With? spouse, child Services at Home: None Primary Language: Maltese Smoking Status: Never Smoked ETOH Use: occasional use Illicit Drug Use: denies illicit drug use Functional Ability ADLs Independent: dressing, eating, toileting, bathing. Ambulation: independent, walker Review of Systems Review of Systems Constitutional: Reports: fever, malaise. EENTM: Reports: no symptoms. Cardiovascular: Reports: no symptoms. Respiratory: Reports: no symptoms. GI: Reports: nausea. Genitourinary: Reports: no symptoms. Musculoskeletal: Reports: see HPI. Skin: Reports: no symptoms. Exam & Diagnostic Data Last 24 Hrs of Vital Signs/I&O Vital Signs Date Time Temp Pulse Resp B/P B/P Pulse O2 O2 Flow FiO2 Mean Ox Delivery Rate 03/21 2318 81 119/71 03/21 2208 97.7 03/21 2201 97.7 80 16 98/53 95 Room Air 03/21 1927 100.5 94 20 134/70 99 Room Air 03/21 1926 100.5 03/21 1730 97.9 98 20 130/79 98 Room Air Intake & Output 03/22 0800 03/22 0000 03/21 1600 Intake Total 1100 Output Total 400 Balance 700 Intake, IV 1100 Output, Urine 400 Patient 178 lb Weight Physical Exam General Appearance Alert, Cooperative, drowsy Neck Supple Cardiovascular Normal S1, Normal S2 Lungs Clear to Auscultation, Normal Air Movement Abdomen Soft, No Tenderness Neurological Normal Speech Body Front and Back (Adult) 1) R knee swollen, erythematous, warm, healed vertical scar, nop drainage, no open areas, limited ROM Last 24 Hrs of Labs/Titus: Laboratory Tests 03/21/17 2345: Urine Opiates Screen 2871.00 H, Methadone Screen < 40, Barbiturate Screen < 60, Ur Phencyclidine Scrn < 6.00, Amphetamines Screen < 100, U Benzodiazepines Scrn < 85, Urine Cocaine Screen < 50, Urine Cannabis Screen < 5.00, Urinalysis LIGHT H, Urine Color YEL, Urine Clarity HAZY H, Urine pH 6.5, Ur Specific [place] <= 1.005, Urine Protein NEG, Urine Ketones NEG, Urine Nitrite NEG, Urine Bilirubin NEG, Urine Urobilinogen 0.2, Ur Leukocyte Esterase TRACE H, Ur Microscopic SEDIMENT EXAMINED, Urine RBC 5-10 H, Urine WBC 3-5 H, Ur Epithelial Cells MOD H, Urine Bacteria FEW H, Urine Mucus FEW, Urine Hemoglobin SMALL H, Urine Glucose NEG 03/21/17 2107: Lactic Acid Cancelled 03/21/17 2100: Lymphocytes 77, % Normal PMNs 86, [facility] Hematology Test 03/21/17 1821: Anion Gap 16, Estimated GFR > 60, BUN/Creatinine Ratio 23.8, Glucose 88, Lactic Acid 1.2, Calcium 9.1, Total Bilirubin 0.6, AST 18, ALT 29, Alkaline Phosphatase 143 H, C-Reactive Prot, Quant > 9.0 H, Total Protein 6.7, Albumin 3.5, Globulin 3.2, Albumin/Globulin Ratio 1.1, PT 14.0 H, INR 1.34 H, APTT 29, CBC w Diff MAN DIFF ORDERED, RBC 4.08 L, MCV 79.2 L, MCH 25.7 L, RDW 16.9 H, MPV 8.4, Gran % 85.6 H, Lymphocytes % 7.3 L, Monocytes % 6.4, Eosinophils % 0.7, Basophils % 0, Absolute Granulocytes 16.2 H, Segmented Neutrophils 75, Band Neutrophils 5, Absolute Lymphocytes 1.4, Lymphocytes 8 L, Monocytes 10 H, Absolute Monocytes 1.2 H, Eosinophils 2, Absolute Eosinophils 0.1, Absolute Basophils 0, Platelet Estimate INCREASED, Normocytic RBCs VERIFIED, Normochromic RBCs VERIFIED, Anisocytosis 1+, Microcytic Cells 1+, PUBS MCHC 32.5 L, ESR Westergren 127 H 03/21/17 1807: Fluid Glucose Cancelled, Fluid Total Protein Cancelled Microbiology 03/22 0054 BLOOD: Blood Culture - RECD 03/21 2033 NASOPHARYN: Influenza Virus A & B Rapid Smear - COMP 03/21 1821 BLOOD: Blood Culture - RECD 03/21 1806 BODY FLUID: Body Fluid Culture - CAN Cancelled: NO SPECIMEN RECEIVED FOR TESTING FLO.PEVI INFORMED 03/21 1806 BODY FLUID: Gram Stain - CAN Cancelled: NO SPECIMEN RECEIVED FOR TESTING FLO.PEVI INFORMED 03/21 1806 BLOOD: Blood Culture - CAN Cancelled: SPECIMEN NEVER RECEIVED. PATIENT REFUSING PER FLO.PEVI Diagnostic Data CXR Results IMPRESSION: No dense consolidation. Bronchial wall thickening can be seen with a small airways process such as asthma or atypical/viral infection. Other Results XRY-KNEE COMPLETE RIGHT IMPRESSION: Large knee joint effusion with associated soft tissue swelling. There is nonspecific lucency identified between the proximal tibial component and the adjacent bone. This could correspond to loosening or infection. The overall appearance is suspicious, though nonspecific for, infection or inflammation. US-UNILATERAL VENOUS DOPPLER IMPRESSION: No evidence for deep venous thrombosis. Complicated popliteal fossa Ghosh's cyst. Assessment/Plan Assessment: The patient is a 56-year-old female who is presenting to [place] ED on 03/21 with complaint of with right knee swelling and pain. She has past medical history of right total knee arthroplasty done on 04/26/2016 for degenerative joint disease. Her postop course was complicated by MSSA prosthetic joint infection. She underwent right knee irrigation and debridement on 05/12/2016 and was discharged on 6 weeks course of antibiotics oxacillin and rifampin via PICC line. She went back to the OR on 06/28/2016 for breakdown of scar tissue. -VS MAXIMUM TEMPERATURE 100.5, HR 98, respiratory rate 20, blood pressure 130/79 , satting 98% on room air, blood pressure dropped to 98/53 improved to 120/70 after fluids -Pertinent labs WBC count 19, H&H is 10.5/32.3, platelet count 503, sodium 134, elevated ESR and CRP. INR 1.34, U tox positive for opiates. -Imaging findings dictated above -ED course: Patient received IV fluids and pain medications. She had a panic attack and received IV Ativan. Valtrex was given for possible sores around her mouth. In ED she received IV ceftriaxone and vancomycin. Arthrocentesis was attempted 4 times but no fluid was obtained -She is currently being admitted to general medicine floor and is being treated and evaluated for following conditions #Sepsis secondary to septic joint Patient with her given history is presenting with elevated white cell count and fever along with tender, edematous and erythematous right joint. Her presentation is consistent with prosthetic joint infection. There is also possibility of infected Ghosh's cyst though less likely -Monitor fever and WBC curve -Follow up blood cultures -Ortho consult in the morning -ID consult in the morning -Arthrocentesis patient might require IR guided arthrocentesis as multiple attempts have resulted in failure. -Consider MRI in the morning -Pain pathway #Microcytic anemia H/H stable decreased MCV and MCH. -Anemia work up iron studies are, ferritin, TIBC, folate and B12 -Consider iron supplementation -Monitor CBC #Thrombocytosis Likely reactive to infectious process -Monitor platelet count #Full code/regular diet/DVT prophylaxis ALPS only. Holding Lovenox in anticipation of arthrocentesis As Ranked By This Provider Problem List: 1. Knee joint effusion Qualifiers Laterality: right Qualified Code: M25.461 - Effusion, right knee 2. Septic joint of right knee joint Core Measures/Misc (11/18) Acute Coronary Syndrome ACS Diagnosis: No Congestive Heart Failure Congestive Heart Failure Diagnosis No Cerebrovascular Accident CVA/TIA Diagnosis: No VTE (View Protocol) VTE Risk Factors Age>40 No Mechanical VTE Prophylaxis d/t N/A MechProphylax Ordered No VTE Pharm Prophylaxis d/t Other Comment: procedure Sepsis (View protocol) Sepsis Present: No Karoline Vicente 03/22/17 0122: General Information and HPI Allergies/Medications Home Med list Cyclobenzaprine HCl 5 MG TABLET 1 TAB PO PRN MUSCLE SPASMS (Reported) Gabapentin 400 MG CAPSULE 1 CAP PO QPM NERVE PAIN (Reported) Hydromorphone HCl 8 MG TABLET 1 TAB PO TID PAIN (Reported) Meloxicam 15 MG TABLET 1 TAB PO DAILY PAIN/INFLAMMATION (Reported) Omeprazole 40 MG CAPSULE.DR 1 CAP PO PRN GI (Reported) Oxycodone HCl (Oxycontin) 40 MG TAB.ER.12H 1 TAB PO DAILY PAIN (Reported) Sennosides (Senna) 8.6 MG TABLET 5 TAB PO DAILY CONSTIPATION (Reported) Resident Review Statement Resident Statement: discussed with research intern Other Findings: 56-year-old woman with past medical history of right total knee arthroplasty on 04/26/2016 for degenerative joint disease with postop course complicated by MSSA prosthetic joint infection Status post Right knee irrigation and debridement on 05/12/2016 and 6 week course of antibiotics (Oxacillin and rifampin) via PICC. She had persistent knee pain postoperatively and developed arthrofibrosis. She was taken back to the OR on 06/28/2016 for breakdown of scar tissue. According to patient she still has intermittent right knee pain since her surgery and takes Dilaudid and OxyContin for pain management at home. This time pain started all of a sudden about a week ago she also noticed that her knee is more swollen and red. She was almost limping and was not able to put pressure on her right leg. She saw her orthopedist yesterday who advised her to come to ER for further investigation and workup. Patient also reports spiking fever to 100.5 at home. She also complained of nausea, vomiting and poor appetite. Denies any abdominal pain, diarrhea or constipation. No urinary symptoms. Does not remember any trauma, twisting or turning of her right leg. Upon arrival to ER her temperature was 97.9 that went up to 100.5, pulse 98, respiratory rate 20, blood pressure 130/79 and oxygen saturation 98% on room air. Pertinent physical exam: Alert, awake and oriented. Dry mucous membranes. Heart tachycardia. No murmurs. Lungs clear on auscultation. Abdomen soft, nontender, nondistended with positive bowel sounds. Right knee is swollen and erythematous. Warm and tender to touch. Old vertical scar in the middle of right knee. No open area or drainage was noted. Restricted range of motion due to pain. Pertinent labs the WBC count 19, H&H is 10.5/32.3, platelet count 503, sodium 134, elevated ESR and CRP. INR 1.34, U tox positive for opiates. Doppler venous ultrasound did not show any evidence for DVT. There was complicated popliteal fossa Ghosh's cyst. Right knee x-ray showed large knee joint effusion with associated soft tissue swelling and suspicion for infection or inflammation. Chest x-ray showed no consolidation Arthrocentesis was attempted in ER at least 4 times but all attempts were apparently failed and no synovial fluid was obtained. In ER she was given IV fluids, pain medications, IV ceftriaxone and vancomycin. Ativan was given for her anxiety . Valtrex was given in ER for possible sores around her mouth. Assessment and plan 56-year-old woman with past medical history of right total knee arthroplasty on 04/26/2016 for degenerative joint disease with postop course complicated by MSSA prosthetic joint infection Status post Right knee irrigation and debridement on 05/12/2016 and 6 week course of antibiotics (Oxacillin and rifampin). This time she is febrile with elevated WBC count. Her knee is swollen, erythematous, warm and tender. It is possible that she might have prosthetic joint infection again. She also had complicated popliteal fossa Ghosh's cyst that can also be infected. No other obvious source of infection. Arthrocentesis was attempted multiple times in ER but could not able to obtain synovial fluid. She got ceftriaxone and vancomycin in ER. Orthopedic consult in a.m. Consider CT scan or MRI of right knee in a.m. She needs arthrocentesis by orthopedist or IR. We will hold off antibiotics for now. ID consult in a.m. Follow blood cultures. Monitor vitals closely. Pain management. Alps for DVT prophylaxis for now. Will start her on pharmacological DVT prophylaxis after arthrocentesis. CODE STATUS is full code. Earl MARTINEZ, [facility] 03/22/17 0446: Attending MD Review Statement Attending Statement Attending MD Statement: examined this patient, discuss w/resident/PA/COMMERCIAL RETOUCHER, agreed w/resident/PA/COMMERCIAL RETOUCHER, reviewed images, amended to note Attending Assessment/Plan: 56 yo F with h/o depression, underwent right total knee arthroplasty (Apr 2016) for severe DJD, which was complicated by prosthetic joint 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 requiring right knee irrigation and debridement with placement of antibiotic beads and prolonged course of antibiotics (May 2016). This was further complicated with difficulty ambulating as she had developed arthrofibrosis for which surgical manipulation was done (June 2016). Patient did have chronic knee pain and has been on narcotic pain meds. About 1 week back , she noticed worsening right knee pain, swelling and erythema without any inciting event trauma or injury. She also noticed intermittent fevers with Tmax 103. Patient is being followed by Dr. Vanegas (ortho) who sent her in to rule out DVT of her leg with eventual need for arthrocentesis. Vitals: Tmax 100.5, HR 80-90's, BP 134/70 --> 98/53 --> 119/71. Right knee diffusely swollen, warm and tender, scaly blanching erythematous rash noted. ROM is limited due to pain. No obvious discharge. Labs: WBC 19, microcytic anemia H/H 10.5/32.3, bands 5, ESR 127 (chronically elevated), IN 1.34, BUN 19, creat 0.8, CRP elevated. UA neg. Utox positive for opiates (given in ER). LE doppler: no DVT but complicated popliteal fossa Ghosh's cyst is noted. Right knee Xray: large knee joint effusion with soft tissue swelling. CXR: bronchial wall thickening with small airways process, no consolidation. In the ER, multiple attempts at arthrocentesis resulted in only a small amount of slow/gelatin like bloody discharge cell count was unable to be performed 2/ 2 clotting. No WBC count done, but PMNs were 86 and lymphs were 77. As per ER discussion with Ortho, no acute intervention planned, so patient was admitted to medical service. Patient received IV ceftriaxone and vanco, 4 mg IV dilaudid and valcyclovir (for mouth cold sores as requested by patient). Please note, around 11.30 pm, she became very anxious, tremulous and shaky. She was medicated with ativan, after which she transiently disoriented thought she was at [facility] and could not get her correct. Her lungs were mildly wheezy so she received IV solumedrol. Later on when residents evaluated her, she appeared oriented. Assessment and plan: 1. SIRS 2. Right knee pain and swelling, rule out septic joint 3. Status post total knee arthroplasty and MSSA sepsis 4. Complicated popliteal fossa Ghosh's cyst 5. Chronic pain syndrome on narcotics 6. ?Drug reaction/ anxiety resolved with ativan 7. Transient hypotension possibly drug induced - resolved - Admit to general medicine - Panculture - Ortho consult in AM - Repeat arthrocentesis by Ortho or IR in AM - Consider CT or MRI of the right knee to better assess knee architexture - Watch off antibiotics for now - ID consult in AM - Pain management with IV dilaudid - Hold heparin products in anticipation of repeat arthrocentesis in AM - Gentle IV fluids DVT ppx Alps. Full code.
[2017-03-22 03:04] VITALS: BP 142/60
--- NOTE | 2017-03-22 04:48 | Admission Certification ---
Admission Certification Certification Statement - As attending physician, I certify that at the time of - admission, based on clinical presentation, severity of - symptoms, need for further diagnostic testing and - therapeutic interventions, and risk of adverse outcomes - without in-hospital treatment, in my clinical assessment, - this patient requires an acute hospital stay for a minimum - of two nights or longer. I have also considered psychsocial - factors such as support system, advanced age, financial - issues, cognitive issues, and failed out-patient treatments, - past re-admission history, safety of patient, and lack of - compliance as applicable. Specific rationale supporting this admission is: Right knee pain with large effusion, needs inpatient admission for Ortho consult , arthrocentesis to rule out septic joint.
[2017-03-22 06:15] VITALS: BP 90/58
[2017-03-22 09:00] LABS: ABSOLUTE BASOPHIL COUNT 0 /CUMM (0.0-0.2); ABSOLUTE EOSINOPHIL COUNT 0 /CUMM (0.0-0.7); ABSOLUTE GRANULOCYTE CT 15.2 /CUMM (1.4-6.5); ABSOLUTE LYMPH COUNT 0.4 /CUMM (1.2-3.4); ABSOLUTE MONOCYTE COUNT 0.5 /CUMM (0.10-0.60); BASOPHIL % 0 % (0.0-2.0); EOSINOPHIL % 0 % (0-5); MEAN CORPUSCULAR HGB 25.9 PG (27.0-31.0); MEAN CORPUSCULAR HGB CONC 32.4 G/DL (33.0-37.0); MEAN CORPUSCULAR VOLUME 79.8 FL (81.0-99.0); MEAN PLATELET VOLUME 8.4 FL (7.4-10.4); PLATELET COUNT 465 /CUMM (130-400); RED BLOOD CELL CT 3.76 /CUMM (4.20-5.40); WHITE BLOOD CELL COUNT 16.1 /CUMM (4.8-10.8)
[2017-03-22 10:11] LABS: GRANULOCYTE % 94.3 % (42.2-75.2)
--- NOTE | 2017-03-22 10:23 | Cons- Orthopedic ---
General Information and HPI Consulting Request Date of Consult: 03/22/17 Requested By: Earl MARTINEZ,Yoav Reason for Consult: Right knee pain and swelling Source of Information: patient Exam Limitations: no limitations History of Present Illness: Patient is a 56-year-old female whO presented to the emergency room on instructions from her orthopedic surgeon for complaints of right knee pain and swelling. She is status post right total knee arthroplasty by another surgeon in April 2016. Her postoperative course was complicated by a postoperative infection which required exchange of the polyethylene liner and IV antibiotics. She's had persistent pain and swelling pretty much throughout the summer and fall with the right knee. Pain got significant and severe again this past week. Her orthopedic surgeon recommended she come to the emergency room record from Hospital for possible aspiration. Unfortunately aspiration emergency room was unsuccessful. Allergies/Medications Allergies: Coded Allergies: ciprofloxacin (From Cipro) (Intermediate, HIVES 09/02/15) adhesive tape (RASH; PER PT OKAY WITH PAPER TAPE 03/21/17) diphenhydramine (BLISTERS IN MOUTH 03/21/17) Home Med List: Cyclobenzaprine HCl 5 MG TABLET 1 TAB PO PRN MUSCLE SPASMS (Reported) Gabapentin 400 MG CAPSULE 1 CAP PO QPM NERVE PAIN (Reported) Hydromorphone HCl 8 MG TABLET 1 TAB PO TID PAIN (Reported) Meloxicam 15 MG TABLET 1 TAB PO DAILY PAIN/INFLAMMATION (Reported) Omeprazole 40 MG CAPSULE.DR 1 CAP PO PRN GI (Reported) Oxycodone HCl (Oxycontin) 40 MG TAB.ER.12H 1 TAB PO DAILY PAIN (Reported) Sennosides (Senna) 8.6 MG TABLET 5 TAB PO DAILY CONSTIPATION (Reported) Past History Medical History Blood Transfusion Hx: Yes Neurological: NONE EENT: NONE Cardiovascular: aortic aneurysm Respiratory: NONE Gastrointestinal: GERD Hepatic: NONE Renal: nephrolithiasis, RENAL ARTERY ANEURYSM Musculoskeletal: CHRONIC BACK PAIN Psychiatric: NONE Endocrine: NONE Blood Disorders: NONE Cancer(s): NONE 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 Home Who Do You Live With? spouse, child Services at Home: None Primary Language: Upper Sorbian Smoking Status: Never Smoked ETOH Use: occasional use Illicit Drug Use: denies illicit drug use Functional Ability ADLs Independent: dressing, eating, toileting, bathing. Ambulation: independent, walker Exam & Diagnostic Data Vital Signs and I&O Vital Signs Date Time Temp Pulse Resp B/P B/P Pulse O2 O2 Flow FiO2 Mean Ox Delivery Rate 03/22 0615 97.8 75 18 90/58 97 Room Air 03/22 0305 Room Air 03/22 0304 98.3 61 18 142/60 95 Room Air 03/21 2318 81 119/71 03/21 2209 97.7 03/21 2202 97.7 80 16 98/53 95 Room Air 03/21 192 100.5 94 20 134/70 99 Room Air 03/21 1926 100.5 03/21 1730 97.9 98 20 130/79 98 Room Air Intake & Output 03/22 1600 03/22 0800 03/22 0000 03/21 1600 03/21 0800 03/21 0000 Intake Total 240 1100 Output Total 450 400 Balance -210 700 Intake, IV 1100 Intake, Oral 240 Number 0 Bowel Movements Output, Urine 450 400 Patient 204 lb 178 lb Weight Weight Bed scale Measurement Method On physical exam the patient's awake and alert. She is complaining of symptoms and pain. Her right lower extremity is extremely swollen and edematous. She has significant pain with range of motion of the knee. She has a 2-3+ effusion of the right knee. Due to her pain was difficult to examine stability of the knee. She is grossly neurovascular intact in the right lower extremity. Imaging studies were reviewed. Plain x-rays of the right knee show lucency underneath the tibial component of the right knee. Assessment/Plan Assessment/Plan 56-year-old female with persistent right knee pain and swelling for several months now following an infected total knee arthroplasty. A CAT scan of the knee will be ordered to evaluate for fluid collection and possible interventional radiology for CT-guided aspiration of the fluid to be sent for culture analysis. The patient should then follow up with her orthopedic surgeon for possible surgical intervention of the total knee arthroscopy. Consult Acknowledgment - Thank you for your consult request.
--- NOTE | 2017-03-22 12:00 | ULTRASOUND REPORT ---
EXAMINATION: US ULTRASOUND-GUIDED RIGHT KNEE ASPIRATION CLINICAL INFORMATION: Right knee pain. Right knee joint effusion. COMPARISON: Right lower extremity ultrasound 03/21/2017. TECHNIQUE: Informed consent was obtained from the patient prior to the procedure. During this process, the procedure and potential alternatives were explained along with the intended outcome and benefits. The risks of the procedure including the possibility of an unsuccessful procedure, as well as the risk of not doing the procedure was discussed. The patient was given the opportunity to ask questions regarding the procedure and appeared competent to make decisions. The signed informed consent form was placed in the medical record. A time out procedure was performed. Following informed consent the patient was placed supine on fluoroscopic table. The right knee region was prepped and draped in usual sterile fashion. Initial ultrasound images demonstrate a right suprapatellar joint effusion. 1% lidocaine was infiltrated into the skin and subcutaneous tissues. A 21-gauge needle was introduced into the right joint effusion under direct sonographic guidance. Approximately 20 mL of brownish purulent-appearing fluid was aspirated. Specimens were sent for culture. The needle was removed. Maximum sterile technique was utilized throughout. Good hemostasis was achieved. A sterile dressing was placed. The patient tolerated the procedure well and was discharged from the room in good condition and monitored with instructions. No complications. IMPRESSION: Successful ultrasound-guided right knee aspiration.
--- NOTE | 2017-03-22 12:34 | Cons- Orthopedic ---
General Information and HPI Consulting Request Date of Consult: 03/22/17 Requested By: Anayeli Youssef MD History of Present Illness: This is a 56 year old female well known to our practice. She had a history of an infected total knee arthroplasty status post irrigation debridement/ antibiotic bead placement, manipulation under anesthesia. She has had ongoing issues after being treated with antibiotics and had recently experienced a recurrence of knee pain and swelling. She was tapped several occasions in the emergency Department however at the samples inadequate. Under interventional radiology guidance fluid was sent off this morning growing out 168,000 white blood cells. Allergies/Medications Allergies: Coded Allergies: ciprofloxacin (From Cipro) (Intermediate, HIVES 09/02/15) adhesive tape (RASH; PER PT OKAY WITH PAPER TAPE 03/21/17) diphenhydramine (BLISTERS IN MOUTH 03/21/17) Home Med List: Cyclobenzaprine HCl 5 MG TABLET 1 TAB PO PRN MUSCLE SPASMS (Reported) Gabapentin 400 MG CAPSULE 1 CAP PO QPM NERVE PAIN (Reported) Hydromorphone HCl 8 MG TABLET 1 TAB PO TID PAIN (Reported) Meloxicam 15 MG TABLET 1 TAB PO DAILY PAIN/INFLAMMATION (Reported) Omeprazole 40 MG CAPSULE.DR 1 CAP PO PRN GI (Reported) Oxycodone HCl (Oxycontin) 40 MG TAB.ER.12H 1 TAB PO DAILY PAIN (Reported) Sennosides (Senna) 8.6 MG TABLET 5 TAB PO DAILY CONSTIPATION (Reported) Past History Medical History Blood Transfusion Hx: Yes Neurological: NONE EENT: NONE Cardiovascular: aortic aneurysm Respiratory: NONE Gastrointestinal: GERD Hepatic: NONE Renal: nephrolithiasis, RENAL ARTERY ANEURYSM Musculoskeletal: CHRONIC BACK PAIN Psychiatric: NONE Endocrine: NONE Blood Disorders: NONE Cancer(s): NONE 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 Home Who Do You Live With? spouse, child Services at Home: None Primary Language: [place] Smoking Status: Never Smoked ETOH Use: occasional use Illicit Drug Use: denies illicit drug use Functional Ability ADLs Independent: dressing, eating, toileting, bathing. Ambulation: independent, walker Exam & Diagnostic Data Vital Signs and I&O Vital Signs Date Time Temp Pulse Resp B/P B/P Pulse O2 O2 Flow FiO2 Mean Ox Delivery Rate 03/22 0615 97.8 75 18 90/58 97 Room Air 03/22 0305 Room Air 03/22 0304 98.3 61 18 142/60 95 Room Air 03/21 2318 81 119/71 03/219 97.7 03/21 2201 97.7 80 16 98/53 95 Room Air 03/21 1927 100.5 94 20 134/70 99 Room Air 03/21 1926 100.5 03/21 1730 97.9 98 20 130/79 98 Room Air Intake & Output 03/22 1600 03/22 0800 03/22 0000 03/21 1600 03/21 0800 03/21 0000 Intake Total 240 1100 Output Total 450 400 Balance -210 700 Intake, IV 1100 Intake, Oral 240 Number 0 Bowel Movements Output, Urine 450 400 Patient 204 lb 178 lb Weight Weight Bed scale Measurement Method Physical Exam: Tender to palpation throughout the right knee. Diffuse swelling. Increased warmth. 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 Plan for right knee irrigation debridement, removal of hardware, and lateral x-rays replacement to be performed at [facility] by Dr. Gerber. Please keep the patient nothing by mouth. We'll transfer her as soon as possible. Consult Acknowledgment - Thank you for your consult request.
--- NOTE | 2017-03-22 12:41 | Patient Discharge Instructions ---
Discharge Instructions General Discharge Information Special Instructions: You will be discharged to be transferred to [facility] for evaluation of your knee by Dr. Marlo Gerber. Please continue your medications as perscribed. Acute Coronary Syndrome Inclusion Criteria At DC or during hospital stay patient has or had the following: ACS DIAGNOSIS No Discharge Core Measures Meds if any: Prescribed or Continued at Discharge Meds if any: NOT Prescribed or Continued at Discharge Congestive Heart Failure Inclusion Criteria At DC or during hospital stay patient has or had the following: CHF DIAGNOSIS No Discharge Core Measures Meds if any: Prescribed or Continued at Discharge Meds if any: NOT Prescribed or Continued at Discharge Cerebrovascular accident Inclusion Criteria At DC or during hospital stay patient has or had the following: CVA/TIA Diagnosis No Discharge Core Measures Meds if any: Prescribed or Continued at Discharge Meds if any: NOT Prescribed or Continued at Discharge Venous thromboembolism Inclusion Criteria VTE Diagnosis No VTE Type NONE VTE Confirmed by (Test) NONE Discharge Core Measures - Per Current guidelines, there needs to be overlap - treatment for the first 5 days of Warfarin therapy. - If discharged on Warfarin prior to 5 days of - overlap therapy, the patient will need to be - assessed for post discharge needs including - *Post discharge parental anticoagulation - *Warfarin and/or parental anticoagulation education - *Follow up date to check INR post discharge At least 5 days overlap therapy as Inpatient No Meds if any: Prescribed or Continued at Discharge Note: Overlap Therapy is Warfarin and Anticoagulant Meds if any: NOT Prescribed or Continued at Discharge
--- NOTE | 2017-03-22 12:52 | PN- Housestaff ---
Subjective Follow-up For: R knee TKR infection Subjective: No acute events overnight. Patient states her pain is ok when she does not move her R leg. Review of Systems Constitutional: Reports: no symptoms. Cardiovascular: Reports: no symptoms. Respiratory: Reports: no symptoms. Gastrointestinal: Reports: no symptoms. Genitourinary: Reports: no symptoms. Musculoskeletal: Reports: see HPI. Objective Last 24 Hrs of Vital Signs/I&O Vital Signs Date Time Temp Pulse Resp B/P B/P Pulse O2 O2 Flow FiO2 Mean Ox Delivery Rate 03/22 1402 97.4 70 20 142/70 96 Room Air 03/22 0615 97.8 75 18 90/58 97 Room Air 03/22 0305 Room Air 03/22 0304 98.3 61 18 142/60 95 Room Air 03/21 2318 81 119/71 03/21 2208 97.7 03/21 2201 97.7 80 16 98/53 95 Room Air 03/21 1927 100.5 94 20 134/70 99 Room Air 03/21 1926 100.5 Intake & Output 03/22 1600 03/22 0800 03/22 0000 Intake Total 341 479 3535 Output Total 450 400 Balance 800 -210 700 Intake, IV 800 1100 Intake, Oral 240 Number 0 Bowel Movements Output, Urine 450 400 Patient 204 lb 178 lb Weight Weight Bed scale Measurement Method Physical Exam General Appearance: Alert, Oriented X3, Cooperative, No Acute Distress Cardiovascular: Regular Rate, Normal S1, Normal S2 Lungs: Clear to Auscultation, Normal Air Movement Abdomen: Normal Bowel Sounds, Soft, No Tenderness Extremities: R knee swelling and extremely tender to touch. Ghosh's cyst able to be palpated behind R knee. R knee is more warm to the touch compred to the L. Slight erythema of R knee Vascular: 2+ radial pulses, cap refill of toes <2 seconds Current Medications: Current Medications Sig/Yousuf Start time Last Medication Dose Route Stop Time Status Admin Acetaminophen 1,000 MG ONCE ONE 03/21 1929 DC 03/21 N/A 1 UNIT IV 03/21 Acetaminophen 0 .STK-MED ONE 03/21 1928 DC IV Ceftriaxone Sodium 1,000 MG ONCE ONE 03/21 2199 DC 03/21 IV 03/21 Ceftriaxone Sodium 0 .STK-MED ONE 03/21 2004 DC .ROUTE Ceftriaxone Sodium 1,000 MG ONCE ONE 03/21 1999 CAN IV 03/21 2000 Dextrose/Sodium 1,000 ML Q20H 03/22 1400 r Chloride IV Enoxaparin Sodium 40 MG DAILY 03/22 1000 CAN SC Gabapentin 400 MG QPM 03/22 2200 AC PO Hydromorphone HCl 8 MG Q6P PRN 03/22 1130 AC 03/22 PO 1133 Hydromorphone HCl 2 MG Q6P PRN 03/22 0100 DC 03/22 PO 1116 Hydromorphone HCl 0 .STK-MED ONE 03/21 2003 DC .ROUTE Hydromorphone HCl 1 MG ONCE ONE 03/21 1999 DC 03/21 IV 03/21 Hydromorphone HCl 0 .STK-MED ONE 03/21 1921 DC .ROUTE Hydromorphone HCl 1 MG ONCE ONE 03/21 191 DC 03/21 IV 03/21 Hydromorphone HCl 0 .STK-MED ONE 03/21 1815 DC .ROUTE Hydromorphone HCl 2 MG ONCE ONE 03/21 1815 DC 03/21 IV 03/21 181 185 Lidocaine 0 .STK-MED ONE 03/22 0933 DC .ROUTE Lidocaine 20 ML ONCE ONE 03/21 2030 DC 03/21 ID 03/21 2030 203 Lidocaine 0 .STK-MED ONE 03/21 2028 DC .ROUTE Lidocaine 0 .STK-MED ONE 03/21 181 DC .ROUTE Lidocaine 20 ML ONCE ONE 03/21 1815 DC 03/21 ID 03/21 1816 1851 Lorazepam 1 MG ONCE ONE 03/21 2315 DC 03/21 IV 03/21 2316 2318 Lorazepam 0 .STK-MED ONE 03/21 2314 DC .ROUTE Lorazepam 0 .STK-MED ONE 03/21 2003 DC .ROUTE Lorazepam 1 MG ONCE ONE 03/21 1999 DC 03/21 IV 03/21 Methylprednisolone 0 .STK-MED ONE 03/22 0023 DC .ROUTE Methylprednisolone 60 MG ONCE ONE 03/22 0015 DC 03/22 IV 03/22 0016 0021 Omeprazole 40 MG DAILY AC 03/22 0700 AC 03/22 PO 0613 Oxycodone HCl 40 MG DAILY 03/22 1000 AC 03/22 PO 1115 Polyethylene Glycol 17 GM DAILY PRN 03/22 0100 AC PO Senna/Docusate Sodium 2 TAB DAILY PRN 03/22 010 AC PO Sodium Chloride 1,000 ML Q10H 03/22 0630 AC 03/22 IV 0641 Sodium Chloride 1,000 ML BOLUS ONE 03/21 2199 DC 03/21 IV 03/21 Valacyclovir HCl 1,000 MG ONCE ONE 03/21 2214 DC 03/21 PO 03/21 Vancomycin HCl 1,000 MG ONCE ONE 03/21 2199 DC 03/21 Sodium Chloride 250 ML IV 03/21 Vancomycin HCl 0 .STK-MED ONE 03/21 2004 DC .ROUTE Vancomycin HCl 1,000 MG ONCE ONE 03/21 1999 CAN Sodium Chloride 250 ML IV 03/21 2058 Last 24 Hrs of Lab/Titus Results Last 24 Hrs of Labs/Mics: Laboratory Tests 03/22/17 1015: Fluid WBC 089788 H, Fld Total RBCs Counted 1496 H 03/22/17 1015: Lymphocytes 2, % Normal PMNs 92, Misc Hematology Test 6, Fluid Glucose < 20, Fluid Total Protein 4.4 03/22/17 0735: Anion Gap 15, Estimated GFR > 60, BUN/Creatinine Ratio 25.0, CBC w Diff NO MAN DIFF REQ, RBC 3.76 L, MCV 79.8 L, MCH 25.9 L, RDW 17.0 H, MPV 8.4, Gran % 94.3 H, Lymphocytes % 2.5 L, Monocytes % 3.2, Eosinophils % 0, Basophils % 0, Absolute Granulocytes 15.2 H, Absolute Lymphocytes 0.4 L, Absolute Monocytes 0.5, Absolute Eosinophils 0, Absolute Basophils 0, PUBS MCHC 32.4 L 03/21/17 2345: Urine Opiates Screen 2871.00 H, Methadone Screen < 40, Barbiturate Screen < 60, Ur Phencyclidine Scrn < 6.00, Amphetamines Screen < 100, U Benzodiazepines Scrn < 85, Urine Cocaine Screen < 50, Urine Cannabis Screen < 5.00, Urinalysis LIGHT H, Urine Color YEL, Urine Clarity HAZY H, Urine pH 6.5, Ur Specific [place] <= 1.005, Urine Protein NEG, Urine Ketones NEG, Urine Nitrite NEG, Urine Bilirubin NEG, Urine Urobilinogen 0.2, Ur Leukocyte Esterase TRACE H, Ur Microscopic SEDIMENT EXAMINED, Urine RBC 5-10 H, Urine WBC 3-5 H, Ur Epithelial Cells MOD H, Urine Bacteria FEW H, Urine Mucus FEW, Urine Hemoglobin SMALL H, Urine Glucose NEG 03/21/172106: Lactic Acid Cancelled 03/21/17 2100: Lymphocytes 77, % Normal PMNs 86, [facility] Hematology Test 03/21/172019: Virus Culture Pending 03/21/17 182: Anion Gap 16, Estimated GFR > 60, BUN/Creatinine Ratio 23.8, Glucose 88, Lactic Acid 1.2, Calcium 9.1, Total Bilirubin 0.6, AST 18, ALT 29, Alkaline Phosphatase 143 H, C-Reactive Prot, Quant > 9.0 H, Total Protein 6.7, Albumin 3.5, Globulin 3.2, Albumin/Globulin Ratio 1.1, PT 14.0 H, INR 1.34 H, APTT 29, CBC w Diff MAN DIFF ORDERED, RBC 4.08 L, MCV 79.2 L, MCH 25.7 L, RDW 16.9 H, MPV 8.4, Gran % 85.6 H, Lymphocytes % 7.3 L, Monocytes % 6.4, Eosinophils % 0.7, Basophils % 0, Absolute Granulocytes 16.2 H, Segmented Neutrophils 75, Band Neutrophils 5, Absolute Lymphocytes 1.4, Lymphocytes 8 L, Monocytes 10 H, Absolute Monocytes 1.2 H, Eosinophils 2, Absolute Eosinophils 0.1, Absolute Basophils 0, Platelet Estimate INCREASED, Normocytic RBCs VERIFIED, Normochromic RBCs VERIFIED, Anisocytosis 1+, Microcytic Cells 1+, PUBS MCHC 32.5 L, ESR Westergren 127 H 03/21/171806: Fluid Glucose Cancelled, Fluid Total Protein Cancelled Microbiology 03/22 1015 BODY FLUID: Body Fluid Culture - RES 03/22 1015 BODY FLUID: Gram Stain - RES 03/22 0054 BLOOD: Blood Culture - RECD 03/21 2033 NASOPHARYN: Influenza Virus A & B Rapid Smear - COMP 03/21 1820 BLOOD: Blood Culture - RES 03/21 1806 BODY FLUID: Body Fluid Culture - CAN Cancelled: NO SPECIMEN RECEIVED FOR TESTING FLO.PEVI INFORMED 03/21 1806 BODY FLUID: Gram Stain - CAN Cancelled: NO SPECIMEN RECEIVED FOR TESTING FLO.PEVI INFORMED 03/21 1806 BLOOD: Blood Culture - CAN Cancelled: SPECIMEN NEVER RECEIVED. PATIENT REFUSING PER FLO.PEVI Assessment/Plan Assessment: 56-year-old female with a history of right total knee arthroplasty done on 04/26 for degenerative joint disease. Her postop course was complicated by MSSA prosthetic joint infection. She underwent right knee irrigation and debridement on 05/12/2016 and was discharged on 6 weeks course of antibiotics oxacillin and rifampin via PICC line. She went back to the OR on 06/28/2016 for breakdown of scar tissue. She is presenting to the [facility] complaints of with right knee swelling and pain found to have pus in the joint space after fluoro guided fluid aspiration. #Sepsis secondary to septic joint Wbc 19 -> 16.1 Venous doppler: No evidence for deep venous thrombosis. Complicated popliteal fossa Ghosh's cyst. Knee xr: Large knee joint effusion with associated soft tissue swelling. There is nonspecific lucency identified between the proximal tibial component and the adjacent bone. This could correspond to loosening or infection. The overall appearance is suspicious, though nonspecific for, infection or inflammation. Fluoro guided aspiration revealed pus: wbc 168k+, total rbc 1496, fluid glucose <20, total protein 4.4 She was seen by ortho (Dr. Castro and Patricia) who recommends right knee irrigation debridement, removal of hardware, and R knee replacement to be performed at [facility] by Dr. Gerber. -Transfer to [facility] for right knee irrigation debridement, removal of hardware, and R knee replacement to be performed at [facility] by Dr. Gerber. -Keeping patient NPO -Follow up blood cultures #Microcytic anemia H/H stable with decreased MCV and MCH. -f/u anemia work up iron, ferritin, TIBC, folate and B12 -Consider iron supplementation -Monitor CBC #bronchial wall thickining CXR: No dense consolidation. Bronchial wall thickening can be seen with a small airways process such as asthma or atypical/viral infection. -pt has no resp symptoms, continue to monitor #Thrombocytosis Likely reactive to infectious process -Monitor platelet count #Full code/regular diet/DVT prophylaxis ALPS only. Holding Lovenox in anticipation of arthrocentesis Problem List: 1. Septic joint of right knee joint Pain Ratin Pain Location: R knee Pain Goal: Pain 4 or less Pain Plan: pain pathway Tomorrow's Labs & Rationales: none
--- NOTE | 2017-03-22 13:03 | Discharge Summary ---
Visit Information Visit Dates Admission Date: 03/21/17 Discharge Date: 03/22/17 Hospital Course Course Attending Physician: Anayeli Youssef MD Primary Care Physician: Issac MARTINEZ,Adalberto Pang Consulting Request: Consulting Specialty: Orthopedics Consulting Physician: Reason for Consult: Prosthetic right knee joint infection Hospital Course: Patient is a 56 yo F with h/o depression, underwent right total knee arthroplasty (Apr 2016) for severe DJD, which was complicated by prosthetic joint 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 requiring right knee irrigation and debridement with placement of antibiotic beads and prolonged course of antibiotics (May 2016). This was further complicated with difficulty ambulating as she had developed arthrofibrosis for which surgical manipulation was done (June 2016). Patient did have chronic knee pain and has been on narcotic pain meds. About 1 week back, she noticed worsening right knee pain, swelling and erythema without any inciting event trauma or injury. She also noticed intermittent fevers with Tmax 103. Patient is being followed by Dr. Vanegas (ortho) who sent her in to rule out DVT of her leg with eventual need for arthrocentesis. Vitals: Tmax 100.5, HR 80-90's, BP 134/70 --> 98/53 --> 119/71. Right knee diffusely swollen, warm and tender, scaly blanching erythematous rash noted. ROM is limited due to pain. No obvious discharge. Labs: WBC 19, microcytic anemia H/H 10.5/32.3, bands 5, ESR 127 (chronically elevated), IN 1.34, BUN 19, creat 0.8, CRP elevated. UA neg. Utox positive for opiates (given in ER). LE doppler: no DVT but complicated popliteal fossa Ghosh's cyst is noted. Right knee Xray: large knee joint effusion with soft tissue swelling. CXR: bronchial wall thickening with small airways process, no consolidation. In the ER, multiple attempts at arthrocentesis resulted in only a small amount of slow/gelatin like bloody discharge cell count was unable to be performed 2/ 2 clotting. No WBC count done, but PMNs were 86 and lymphs were 77. As per ER discussion with Ortho, no acute intervention planned, so patient was admitted to medical service. Patient received IV ceftriaxone and vanco, 4 mg IV dilaudid and valcyclovir (for mouth cold sores as requested by patient). Please note, around 11.30 pm, she became very anxious, tremulous and shaky. She was medicated with ativan, after which she transiently disoriented thought she was at [facility] and could not get her correct. Her lungs were mildly wheezy so she received IV solumedrol. Later on when residents evaluated her, she appeared oriented. Admitted to general medicine floor Assessment and plan: 1. 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 Status post total knee arthroplasty and MSSA sepsis in the past 3. Complicated popliteal fossa Ghosh's cyst 4. Chronic pain syndrome on narcotics 5. Transient hypotension possibly drug induced - resolved 1. 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 Cell count reveal [id number] and RBC count of 1496 with less 20 glucose. Cultures were sent (pending). She remained hemodynamically stable after a transient hypotension episode this am without any fevers. Her white count improved slightly after a dose of antibiotics in ER. Ortho consulted and she was transferring to [facility] emergently with a plan to right knee irrigation debridement, removal of hardware, and right knee replacement to be performed by . She is NPO for the procedure and kept off any heparin products ( anticoagulation). After giving a single dose of ceftriaxone and vanco - she was kept off antibiotics. Restart as deemed. Remains afebrile without any lactic acidosis for now. 2. Complicated popliteal fossa Ghosh's cyst Venous doppler ultrasound revealed a complicated 4.9 x 3.0 x 8.7 popliteal fossa Ghosh's cyst. This extends superiorly towards the suprapatellar joint space. Symptomatically managed. Doppler ultrasound ruled out DVT. 3. Chronic pain syndrome on narcotics Patient is on narcotics after her pervious surgery due to chronic scarring. Chronically on Dilaudid 8mg TID and Oxycontin 40mg daily for pain control. DVT prophylaxis ALPS Code status Full Code Complications: none Allergies: Coded Allergies: ciprofloxacin (From Cipro) (Intermediate, HIVES 09/02/15) adhesive tape (RASH; PER PT OKAY WITH PAPER TAPE 03/21/17) diphenhydramine (BLISTERS IN MOUTH 03/21/17) Significant Procedures: US ULTRASOUND-GUIDED RIGHT KNEE ASPIRATION CLINICAL INFORMATION: Right knee pain. Right knee joint effusion. COMPARISON: Right lower extremity ultrasound 03/21/2017. TECHNIQUE: Informed consent was obtained from the patient prior to the procedure. During this process, the procedure and potential alternatives were explained along with the intended outcome and benefits. The risks of the procedure including the possibility of an unsuccessful procedure, as well as the risk of not doing the procedure was discussed. The patient was given the opportunity to ask questions regarding the procedure and appeared competent to make decisions. The signed informed consent form was placed in the medical record. A time out procedure was performed. Following informed consent the patient was placed supine on fluoroscopic table. The right knee region was prepped and draped in usual sterile fashion. Initial ultrasound images demonstrate a right suprapatellar joint effusion. 1% lidocaine was infiltrated into the skin and subcutaneous tissues. A 21-gauge needle was introduced into the right joint effusion under direct sonographic guidance. Approximately 20 mL of brownish purulent-appearing fluid was aspirated. Specimens were sent for culture. The needle was removed. Maximum sterile technique was utilized throughout. Good hemostasis was achieved. A sterile dressing was placed. The patient tolerated the procedure well and was discharged from the room in good condition and monitored with instructions. No complications. IMPRESSION: Successful ultrasound-guided right knee aspiration CXR on 03/21/17 IMPRESSION: No dense consolidation. Bronchial wall thickening can be seen with a small airways process such as asthma or atypical/viral infection. Knee Xray 03/21/17 IMPRESSION: Large knee joint effusion with associated soft tissue swelling. There is nonspecific lucency identified between the proximal tibial component and the adjacent bone. This could correspond to loosening or infection. The overall appearance is suspicious, though nonspecific for, infection or inflammation. US TRIPLEX LOWER EXTREMITY, RIGHT CLINICAL INFORMATION: Right lower extremity pain and edema. COMPARISON: None TECHNIQUE: Color-flow triplex imaging with spectral analysis and compression Doppler were performed on the lower extremity. FINDINGS: Respiratory variation, normal compression and augmented flow are noted throughout the lower extremity. The visualized common femoral vein, superficial femoral vein, profunda femoral vein, popliteal vein and midcalf peroneal and posterior tibial venous segments show no evidence of deep venous thrombosis. There is a complicated 4.9 x 3.0 x 8.7 popliteal fossa Ghosh's cyst. This extends superiorly towards the suprapatellar joint space. IMPRESSION: No evidence for deep venous thrombosis. Complicated popliteal fossa Ghosh's cyst. 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 Clifton in a week Medications at Discharge Discharge Medications: Continue taking these medications: Sennosides (Senna) 8.6 MG TABLET 5 Tablet ORAL DAILY Comments: NOT GIVEN Hydromorphone HCl (Hydromorphone HCl) 8 MG TABLET 1 Tablet ORAL THREE TIMES DAILY Qty = 120 Comments: Last Taken: 03/22/17 Time: 1130AM Gabapentin (Gabapentin) 400 MG CAPSULE 1 Capsule ORAL Every night Qty = 90 Comments: NOT GIVEN Meloxicam (Meloxicam) 15 MG TABLET 1 Tablet ORAL DAILY Qty = 30 Comments: NOT GIVEN Cyclobenzaprine HCl (Cyclobenzaprine HCl) 5 MG TABLET 1 Tablet ORAL as needed for MUSCLE SPASMS Qty = 90 Comments: NOT GIVEN Oxycodone HCl (Oxycontin) 40 MG TAB.ER.12H 1 Tablet ORAL DAILY Qty = 60 Omeprazole (Omeprazole) 40 MG CAPSULE.DR 1 Capsule ORAL as needed for GI Qty = 30 Comments: Last Taken: 03/22/17 Time: 615AM Copies To: Issac MARTINEZ,Adalberto Gomez MD,Juan Francisco Attending MD Review Statement Documenting Attending: Anayeli Youssef MD Other Findings: Patient is being discharged to [facility] for further evaluation and care as per orhtopedics team consulted here at [facility]. Patient appears to have prosthetic joint infection with need of debridement and possible joint replacement in future. Follow orthopedics after discharge. Also consider infectious disease consult in future.
[2017-03-22 14:02] VITALS: BP 142/70
[2017-03-22 20:06] VITALS: BP 142/70
== END 2017-03-22 21:55 | disposition short-term general hospital (02) | DRG 560 ==
LOC: ERH 17:00 → 2NA 23:07 → ERHI 23:07 → ENRESERV 03-22 02:12 → 2NA 03-22 02:41 → ERHI 03-22 02:41 → 2NA 03-22 02:41 → ENPENDDIS 03-22 13:40 → 2NA 03-22 21:55
PROVIDERS: Internal Medicine; Physician Assistant Medical
PROC: 0S9C3ZX Drainage of Right Knee Joint, Percutaneous Approach, Diagnostic (ICD-10-PCS; principal; 2017-03-21)
PROC: 0S9C3ZX Drainage of Right Knee Joint, Percutaneous Approach, Diagnostic (ICD-10-PCS; 2017-03-22)
DX: T84.53XA Infection and inflammatory reaction due to internal right knee prosthesis, initial encounter (principal); M00.9 Pyogenic arthritis, unspecified; I95.2 Hypotension due to drugs; Y79.2 Prosthetic and other implants, materials and accessory orthopedic devices associated with adverse incidents; F32.9 Major depressive disorder, single episode, unspecified; D64.9 Anemia, unspecified; G89.4 Chronic pain syndrome; M71.21 Synovial cyst of popliteal space [Baker], right knee; K21.9 Gastro-esophageal reflux disease without esophagitis
CPT/HCPCS: 87075; 87184; ERO; 36415; 71045; 73562-RT; 80307; 81001; 82436; 87040; 87147; 87804; 87804-59; C1769; J0131; J0696; J1650; J2930; J3370; J3490; J7040; J7042

== ENCOUNTER 2017-04-13 21:12 | Inpatient (IN) | payer OTHER ==
[~2017-04-13] VITALS: Ht 154.9 cm; Wt 86.2 kg
[~2017-04-13 21:12] MED LIST changes: +CYCLOBENZAPRINE5 M2 PO; +GABAPENTIN400 M2 PO; +HYDROMORPHONE HC8 M1 PO; +IBUPROFEN800 M1 PO; +LIDOCAINE1 EACH TOP; +MELOXICAM15 M1 PO; +OMEPRAZOLE40 M1 PO; +OXYCONTIN40 M1 PO
[2017-04-13 21:50] LABS: ABSOLUTE BASOPHIL COUNT 0 /CUMM (0.0-0.2); ABSOLUTE EOSINOPHIL COUNT 0 /CUMM (0.0-0.7); ABSOLUTE GRANULOCYTE CT 9.3 /CUMM (1.4-6.5); ABSOLUTE LYMPH COUNT 1.1 /CUMM (1.2-3.4); ABSOLUTE MONOCYTE COUNT 0.7 /CUMM (0.10-0.60); BASOPHIL % 0.1 % (0.0-2.0); EOSINOPHIL % 0.1 % (0-5); GRANULOCYTE % 83.6 % (42.2-75.2); HEMATOCRIT 28.1 % (37-47); MEAN CORPUSCULAR HGB CONC 32.7 G/DL (33.0-37.0); MEAN CORPUSCULAR VOLUME 76.3 FL (81.0-99.0); MEAN PLATELET VOLUME 7.8 FL (7.4-10.4); PLATELET COUNT 407 /CUMM (130-400); RBC DISTRIBUTION WIDTH 16.9 % (11.5-14.5); RED BLOOD CELL CT 3.68 /CUMM (4.20-5.40); WHITE BLOOD CELL COUNT 11.1 /CUMM (4.8-10.8)
--- NOTE | 2017-04-13 22:27 | ED HEADACHE COMPLAINT ---
History of Present Illness General Chief Complaint: Lower Extremity Problems Stated Complaint: RIGHT KNEE INFECTION AND PAIN Source: patient, family, old records Exam Limitations: no limitations Vital Signs & Intake/Output Vital Signs & Intake/Output Vital Signs Date Time Temp Pulse Resp B/P B/P Pulse O2 O2 Flow FiO2 Mean Ox Delivery Rate 04/16 1439 98.6 58 20 142/86 97 Room Air ED Intake and Output 04/17 0000 04/16 1200 Intake Total 550 120 Output Total 780 1800 Balance -230 -1680 Intake, IV 10 Intake, Oral 540 120 Output, Urine 780 1800 Allergies Coded Allergies: ciprofloxacin (From Cipro) (Intermediate, HIVES 09/02/15) adhesive tape (RASH; PER PT OKAY WITH PAPER TAPE 03/21/17) diphenhydramine (BLISTERS IN MOUTH 03/21/17) Reconcile Medications Ceftriaxone Sodium (Ceftriaxone) 500 MG VIAL 2,000 MG IM DAILY SEPTIC ARTHRITIS (Reported) Cyclobenzaprine HCl 5 MG TABLET 1 TAB PO PRN MUSCLE SPASMS (Reported) Gabapentin 400 MG CAPSULE 1 CAP PO QPM NERVE PAIN (Reported) Hydromorphone HCl 8 MG TABLET 1 TAB PO TID PRN pain (Reported) Meloxicam 15 MG TABLET 1 TAB PO DAILY PAIN/INFLAMMATION (Reported) Omeprazole 40 MG CAPSULE.DR 1 CAP PO PRN GI (Reported) Oxycodone HCl (Oxycontin) 40 MG TAB.ER.12H 1 TAB PO DAILY PAIN (Reported) Sennosides (Senna) 8.6 MG TABLET 5 TAB PO DAILY CONSTIPATION (Reported) Triage Note: PT BIBA FOR FEVER OF 100.6 AT HOME, 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 PT WITH RECENT R KNEE SX ON Mar, HX OF RECURRING STAPH INFECITON TO R KNEE - ORTHO AND INFECTIOUS DISEASE DOCTOR BOTH AT [facility]. PT REPORTS "KNEE PAIN AT THE TIME" BUT "HEAD CURRENTLY HURTS WORSE THAN KNEE" VSS, PT FLUSHED, SKIN WARM TO TOUCH. PT WITH PICC TO RUE, RESTRICTED EXTREMITY BAND APPLIED. PT AWAKE/ALERT WITH EASY WOB. Triage Nurses Notes Reviewed? yes HPI: 56F PMH right knee replacement complicated by hardware infection s/p multiple washout and I&D with resulting fibrosis, recently wash out with patella hardware removal with active PICC on IV antibiotics, presenting with 1 day of fever, headache, diaphoresis, weakness, and decreased PO intake. Denies neck stiffness , photophobia, chest pain, SOB, abdominal pain, diarrhea, dysuria. Knee pain is chronic and unchanged. Past History Travel History Traveled to [place] past 21 day No Medical History Any Pertinent Medical History? 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 No Review of Systems Review of Systems Constitutional: Reports: no symptoms. Eyes: Reports: no symptoms. Ears, Nose, Throat, Mouth: Reports: no symptoms. Respiratory: Reports: no symptoms. Cardiovascular: Reports: no symptoms. Gastrointestinal/Abdominal: Reports: no symptoms. Genitourinary: Reports: no symptoms. Musculoskeletal: Reports: no symptoms. Skin: Reports: no symptoms. Neurological/Psychological: Reports: no symptoms. Hematologic/Endocrine: Reports: no symptoms. Endocrine: Reports: no symptoms. Immunologic/Allergic: Reports: no symptoms. All Other Systems: Reviewed and Negative Physical Exam Physical Exam General Appearance: well developed/nourished, mild distress Head: atraumatic, normal appearance Eyes: Bilateral: normal appearance, PERRL, EOMI. Ears, Nose, Throat: normal pharynx, normal ENT inspection, hearing grossly normal Neck: normal inspection, supple, full range of motion Respiratory: normal breath sounds, chest non-tender, no respiratory distress Cardiovascular: regular rate/rhythm Gastrointestinal: soft, non-tender Back: normal inspection, normal range of motion Extremities: normal inspection, normal range of motion Psychiatric: awake, alert, oriented x 3 Cranial Nerves: normal hearing, normal speech, PERRL Motor/Sensory: no motor/sensory deficits Skin: intact, normal color, warm/dry, knee incision site clean and dry Core Measures Sepsis Present: No Sepsis Focused Exam Completed? No Progress Differential Diagnosis: carotid dissection, cav sinus thromb, cluster LUCAS, encephalitis, IC mass/tumor, intracranial Hem., meningitis, migraine LUCAS, musculoskeletal pain, post LP headache, sinusitis, SSS thrombosis, subarach. Hem., tension LUCAS, temporal arteritis, TMJ syndrome, viral cephalgia Plan of Care: Orders Procedure Date/time Status Discharge Patient 04/16 UNK Active Departure Departure Disposition: STILL A PATIENT Condition: Stable Clinical Impression Primary Impression: Viral syndrome Secondary Impressions: Hypokalemia Referrals: Issac MARTINEZ,Adalberto Pang (PCP/Family) Departure Forms: Customer Survey General Discharge Information Admission Note Spoke With: Jerry Elliott [facility] Documentation of Exam: Documentation of any treatments & extenuating circumstances including Concerns Regarding Discharge (functional status, medication knowledge or non-compliance, living conditions, etc.) that warrant an admission rather than observation: fever, chills, headache, weakness, potassium 2.0, recent history of septic arthritis with washout and PICC on IV antibiotics, will admit for potassium repletion, nephrology consult, workup of fever, evaluation by ortho Medication Dose Stop Time Status Admin Magnesium Sulfate 1 GM Q2H 04/14 0115 AC (Mag Sulfate in D5) 04/14 0514 Dextrose/Water 100 ML (D5W) Potassium Chloride 40 MEQ Q13H 04/13 2230 AC 04/13 (KCl 40MEQ in NS 2247 1000ML) Sodium Chloride 1,000 ML (Normal Saline 0.9%) Laboratory Tests 04/14/17 0015: 04/14/17 0015: Lactic Acid 0.5 L 04/13/17 2145: Anion Gap 17 H, Estimated GFR > 60, BUN/Creatinine Ratio 12.5, Glucose 116 H, Lactic Acid 0.8, Calcium 8.3 L, Magnesium 1.4 L, Total Bilirubin 0.7, AST 16, ALT 19, Alkaline Phosphatase 95, Total Protein 7.3, Albumin 3.7, Globulin 3.6, Albumin/Globulin Ratio 1.0 L, CBC w Diff NO MAN DIFF REQ, RBC 3.68 L, MCV 76.3 L, MCH 25.0 L, MCHC 32.7 L, RDW 16.9 H, MPV 7.8, Gran % 83.6 H, Lymphocytes % 10.0 L, Monocytes % 6.2, Eosinophils % 0.1, Basophils % 0.1, Absolute Granulocytes 9.3 H, Absolute Lymphocytes 1.1 L, Absolute Monocytes 0.7 H, Absolute Eosinophils 0, Absolute Basophils 0 Microbiology 04/13 2154 BLOOD: Blood Culture - RECD 04/13 2144 BLOOD: Blood Culture - RECD 04/13 2139 NASOPHARYN: Influenza Virus A & B Rapid Smear - COMP Departure Departure Disposition: STILL A PATIENT Condition: Stable Clinical Impression Primary Impression: Viral syndrome Secondary Impressions: Hypokalemia Referrals: Issac MARTINEZ,Adalberto Pang (PCP/Family) Departure Forms: Customer Survey General Discharge Information Admission Note Sp[facility] With: Jp [facility] Documentation of Exam: Documentation of any treatments & extenuating circumstances including Concerns Regarding Discharge (functional status, medication knowledge or non-compliance, living conditions, etc.) that warrant an admission rather than observation: fever, chills, headache, weakness, potassium 2.0, recent history of septic arthritis with washout and PICC on IV antibiotics, will admit for potassium repletion, nephrology consult, workup of fever, evaluation by ortho
--- NOTE | 2017-04-13 22:50 | RADIOLOGY REPORT ---
EXAMINATION: XR PORTABLE CHEST CLINICAL INFORMATION: Dyspnea with left-sided coarse breath sounds. COMPARISON: Chest radiography 03/21/2017. TECHNIQUE: Portable frontal view of the chest was obtained. FINDINGS: No new significant abnormality is noted involving the heart, lungs, mediastinum, bony thorax or soft tissues. Right-sided PICC line with tip terminating near the caval atrial junction. IMPRESSION: No convincing evidence of pneumonia.
--- NOTE | 2017-04-14 01:23 | History & Physical ---
Juan Daniel MARTINEZ,[facility] 04/14/17 0123: General Information and HPI History of Present Illness: Ms. Villareal is a 56F with PMH of aortic aneurysm, GERD, nephrolithiasis, renal artery aneurysm, and right knee replacement complicated by hardware infection s/ p multiple washout and I&D with resulting fibrosis, recently wash out with patellar hardware removal (Dr. Garrett, [place]) with active PICC on IV antibiotics, presenting with 1 day of fever, headache, diaphoresis, weakness, and decreased PO intake. The patient was recently seen here in March for septic joint in her right knee. She was transferred to [place] for further care. In [place], they opened up the knee and found pus. They put in an antibiotic spacer but left the implant. The plan was to do a replacement once the infection has resolved. She is followed by Dr. Wilson in [place] for infectious disease. After being discharged from [facility], she went to rehabilitation at [facility]. She was there for 2 weeks before leaving AGAINST MEDICAL ADVICE. On , she saw Dr. Wilson and he changed her antibiotics because she was continued to spike fevers. She does not remember this antibiotic, but it is IV. The plan was to stay on the antibiotics for another 2 weeks. For the past week, she has been having low-grade fevers that are relieved by acetaminophen. Today, she has continued to have fevers in addition to an episode of presyncope around 5 PM. She denies losing consciousness or falling. She also reports vomiting the past couple days, about 3 times a day, nonbloody. She is also reporting feeling tired and weak. There is no abdominal pain, diarrhea, sore throat, cough, travel , or sick contacts. Allergies/Medications Allergies: Coded Allergies: ciprofloxacin (From Cipro) (Intermediate, HIVES 09/02/15) adhesive tape (RASH; PER PT OKAY WITH PAPER TAPE 03/21/17) diphenhydramine (BLISTERS IN MOUTH 03/21/17) Home Med list Cyclobenzaprine HCl 5 MG TABLET 1 TAB PO PRN MUSCLE SPASMS (Reported) Gabapentin 400 MG CAPSULE 1 CAP PO QPM NERVE PAIN (Reported) Hydromorphone HCl 8 MG TABLET 1 TAB PO TID PAIN (Reported) Meloxicam 15 MG TABLET 1 TAB PO DAILY PAIN/INFLAMMATION (Reported) Omeprazole 40 MG CAPSULE.DR 1 CAP PO PRN GI (Reported) Oxycodone HCl (Oxycontin) 40 MG TAB.ER.12H 1 TAB PO DAILY PAIN (Reported) Sennosides (Senna) 8.6 MG TABLET 5 TAB PO DAILY CONSTIPATION (Reported) Past History Travel History Traveled to [place] past 21 day No Medical History Neurological: NONE EENT: NONE Cardiovascular: aortic aneurysm Respiratory: NONE Gastrointestinal: GERD Hepatic: NONE Renal: nephrolithiasis, RENAL ARTERY ANEURYSM Musculoskeletal: CHRONIC BACK PAIN Psychiatric: NONE Endocrine: NONE Blood Disorders: NONE Cancer(s): NONE DISINTEGRATOR/Reproductive: NONE History of MRSA: No History of VRE: No History of CDIFF: No Surgical History Surgical History: hysterectomy, knee replacement (right knee), BACK SURGERY BLADDER LIFT, SHOULDER SURGERY, BUNIONECTOMY BOLTH FEET Past Family/Social History Family History Relations & Conditions if any Relation not specified for: *No pertinent family history Psychosocial History Who Do You Live With? spouse, child Services at Home: None Primary Language: Sinhala ETOH Use: denies use Illicit Drug Use: denies illicit drug use Functional Ability ADLs Independent: dressing, eating, toileting, bathing. Ambulation: independent, walker Review of Systems Review of Systems Constitutional: Reports: see HPI. EENTM: Reports: no symptoms. Cardiovascular: Reports: no symptoms. Respiratory: Reports: no symptoms. GI: Reports: see HPI. Genitourinary: Reports: no symptoms. Musculoskeletal: Reports: see HPI. Skin: Reports: no symptoms. Neurological/Psychological: Reports: see HPI. Hematologic/Endocrine: Reports: no symptoms. Immunologic/Allergic: Reports: no symptoms. All Other Systems: Reviewed and Negative Exam & Diagnostic Data Last 24 Hrs of Vital Signs/I&O Vital Signs Date Time Temp Pulse Resp B/P B/P Pulse O2 O2 Flow FiO2 Mean Ox Delivery Rate 04/145 99.7 68 18 138/72 97 Room Air 04/14 0231 99.0 74 16 139/75 100 Room Air 04/14 0059 98.8 77 16 117/66 97 Room Air 04/13 2132 98.6 74 22 135/75 98 Room Air Intake & Output 04/14 0800 04/14 0000 04/13 1600 Intake Total 1150 Output Total Balance 1150 Intake, IV 1000 Intake, Oral 150 Patient 86.183 kg Weight Weight Reported by Patient Measurement Method Physical Exam General Appearance Alert, Oriented X3, Cooperative, Mild Distress Cardiovascular Regular Rate, Normal S1, Normal S2 Lungs Clear to Auscultation, Normal Air Movement Abdomen Normal Bowel Sounds, Soft, No Tenderness Neurological Normal Speech Extremities No Edema, Normal Pulses, No Tenderness/Swelling, Right knee with midline incision, nonerythematous, no drainage or fluctuance. Last 24 Hrs of Labs/Titus: Laboratory Tests 04/14/17 0120: Urine Color YEL, Urine Clarity HAZY H, Urine pH 7.0, Ur Specific [place] 1.010, Urine Protein TRACE H, Urine Ketones NEG, Urine Nitrite NEG, Urine Bilirubin NEG, Urine Urobilinogen 0.2, Ur Leukocyte Esterase TRACE H, Ur Microscopic SEDIMENT EXAMINED, Urine RBC RARE, Urine WBC 1-3 H, Ur Epithelial Cells RARE, Urine Hemoglobin SMALL H, Urine Glucose NEG 04/14/17 0015: 04/14/17 0015: Lactic Acid 0.5 L 04/13/172144: Anion Gap 17 H, Estimated GFR > 60, BUN/Creatinine Ratio 12.5, Glucose 116 H, Lactic Acid 0.8, Calcium 8.3 L, Magnesium 1.4 L, Total Bilirubin 0.7, AST 16, ALT 19, Alkaline Phosphatase 95, Total Protein 7.3, Albumin 3.7, Globulin 3.6, Albumin/Globulin Ratio 1.0 L, CBC w Diff NO MAN DIFF REQ, RBC 3.68 L, MCV 76.3 L, MCH 25.0 L, MCHC 32.7 L, RDW 16.9 H, MPV 7.8, Gran % 83.6 H, Lymphocytes % 10.0 L, Monocytes % 6.2, Eosinophils % 0.1, Basophils % 0.1, Absolute Granulocytes 9.3 H, Absolute Lymphocytes 1.1 L, Absolute Monocytes 0.7 H, Absolute Eosinophils 0, Absolute Basophils 0 Microbiology 04/13 2154 BLOOD: Blood Culture - RECD 04/13 2144 BLOOD: Blood Culture - RECD 04/13 2139 NASOPHARYN: Influenza Virus A & B Rapid Smear - COMP Assessment/Plan Assessment: Ms. Villareal is a 56F with PMH of aortic aneurysm, GERD, nephrolithiasis, renal artery aneurysm, and right knee replacement complicated by hardware infection s/ p multiple washout and I&D with resulting fibrosis, recently wash out with patellar hardware removal (Dr. Garrett [place]) with active PICC on IV antibiotics, presenting with 1 day of fever, headache, diaphoresis, weakness, and decreased PO intake. Presentation, vital signs were T 98.6, HR 74, RR 22, BP 135/75, saturating 90% on room air. Laboratories worsened and for white blood cell count 11.1, 83.6% granulocytes, hemoglobin 9.2, MCV 76.3, platelets 407, potassium 2.0, lactic acid 0.8, calcium 8.3, albumin 3.7, magnesium 1.4. Chest x-ray was negative for any acute abnormality. She was treated with potassium chloride and 1 L normal saline in the emergency room. She'll be admitted to telemetry and treated for the following problems: 1. Hypokalemia 2. Sepsis 3. Microcytic anemia 4. Hypocalcemia 5. Thrombocytosis 6. Hypomagnesemia #Hypokalemia: May by mediated by hypomagnesmia versus hyperaldosteronism versus other cause. She also has a mild hyponatremia and is on omeprazole. -Hold omeprazole -Replenish K, repeat BEP/Mg -Tele monitoring #Sepsis: The patient presents with 2/4 SIRS criteria (tachypnea, leukocytosis). The most obvious source would be her right knee given her previous infection. -Panculture -Infectious disease consult -Reconcile medications in the morning, start antibiotic that she was on -IV fluids #Microcytic anemia: She is asymptomatic. -Iron studies -Guaiac stool #Hypocalcemia: Mild and asymptomatic. -Continue to monitor #Chronic medical problems: -Reconcile home medications in the morning DVT prophylaxis with enoxaparin Regular diet Full code As Ranked By This Provider Problem List: 1. Hypokalemia Core Measures/Misc (11/18) Acute Coronary Syndrome ACS Diagnosis: No Congestive Heart Failure Congestive Heart Failure Diagnosis No Cerebrovascular Accident CVA/TIA Diagnosis: No VTE (View Protocol) VTE Risk Factors Age>40 No Mechanical VTE Prophylaxis d/t N/A MechProphylax Ordered No VTE Pharm Prophylaxis d/t NA PharmProphylax ordered Sepsis (View protocol) Sepsis Present: Yes Harvey MARTINEZ,[place] 04/14/17 0514: Resident Review Statement Resident Statement: examined this patient, discussed with campus recruiting intern Other Findings: H Ms. Villareal is a 56F with PMH of aortic aneurysm, GERD, nephrolithiasis, renal artery aneurysm, and right knee replacement (complicated by hardware infection s /p multiple washouts and I&D with resulting fibrosis, with patellar hardware removal (Dr. Gerber) with active PICC on IV antibiotics, who presented to the emergency department on 04/13/2017 complaining of fever, lethargy, weakness and decreased by mouth intake. Patient was recently discharged from [facility] (04/10/2016) where she was admitted for 2 weeks. Prior to this she was admitted at [facility]. Patient was transferred to [facility] after workup at [place] showed that she had a septic joint. After opening of the joint, implant was left in and an antibiotic spacer was placed. On 04/11/2016 she saw her infectious diseases physician who started on a new antibiotic because she continued to be febrile on her previous regimen. She is unsure what the name of her new antibiotic is, but after prompting, states this could be Vancomycin. Prior to coming in she endorses a presyncopal episode, but did not have any loss in consciousness. She also reports multiple episodes of emesis. Does not contain any bright blood or bile. Patient's primary care physician is Dr. Davenport. Orthopedic surgeon is Dr. Gerber Patient reports that her pain is often controlled with Dilaudid. She normally follows up with Dr Castle for pain management. R: Patient endorsed chills, weakness, nausea, vomiting. E Temperature 98.6. Pulse 74. Respirations 22. Blood pressure 135/75. Pulse ox 98. General Appearance Alert, Oriented X3, Cooperative. Moderate distress Cardiovascular Regular Rate, Normal S1, Normal S2 Lungs Clear to Auscultation, Normal Air Movement Abdomen Normal Bowel Sounds, Soft, No Tenderness Neurological Normal Speech Extremities. PICC line in place right upper extremity. Clean, dry and intact. No Edema, Normal Pulses, No Tenderness/Swelling, Right leg in immobilizer. Right knee with midline incision, nonerythematous, no drainage or fluctuance. L: WBC 11.1. H&H 9.2 and 28.1. Platelets 407. Sodium 134. Potassium 2.0. BUN 10. Creatinine 0.8 I: XRY-PORTABLE CHEST XRAY IMPRESSION: No convincing evidence of pneumonia. A/P Ms. Villareal is a 56F with PMH of aortic aneurysm, GERD, nephrolithiasis, renal artery aneurysm, and right knee replacement (complicated by hardware infection s /p multiple washout and I&D with resulting fibrosis, recently wash out with patellar hardware removal (Dr. Gerber) with active PICC on IV antibiotics, who presented to the emergency department on 04/13/2017 complaining of fever, lethargy, vomiting weakness and decreased by mouth intake. Her hypokalemia is likely attributed to GI loss in the setting of repeated vomiting. The Following is her problem list. #Hypokalemia. #History of right knee replacement and multiple postop complications. #Anemia. Admit to telemetry. Monitor for any arrhythmias. Aggressively replete potassium and magnesium. Obtain a.m. cortisol to rule out adrenal insufficiency in the setting of prolonged opiate usage. Monitor BEP in a.m. and replete electrolyte deficits accordingly. Hold PPI as this can cause hypomagensemia, which can cause hypokalemia. Obtain infectious disease consultation in a.m for appropriate abx coverage guidance. Patient did not recall her medication list, after confirmation, this will need to be resumed in the a.m ([facility]). Will need to confirm antibiotic that she was started and so we can resume this in the morning. Iron studies in a.m. History of anemia will be worked up with iron studies. Will guaiac all stools. DVT prophylaxis with Lovenox. Regular diet. Patient is a full code. 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 She was transferred to [facility] where right knee was irrigated and antibiotic spacer placed, with eventual plan for hardware removal. She was placed on IV antibiotics via PICC and was discharged to [facility] 2 weeks ago. She left AMA from there 2 days ago. She has been having fevers, chills, nausea and vomiting with severe right knee pain. She follows Dr. Gerber ( Orthopedics) and Dr. Wilson (ID). She does not remember the antibiotic names that she is on. Vitals stable. Exam: Heart S1S2 regular, ?systolic murmur, Chest b/l clear. Right knee sutures intact, no obvious swelling, erythema or discharge. Right arm PICC site clean. Labs: WBC 11.1, H/H 9.2/28.1 (stable), K 2.0 --> 2.3, Na 134, AG 17, normal lactic acid, Mag 1.4, UA neg. CXR: no pneumonia, right PICC in place. EKG: sinus rhythm with subtle U waves and ST sagging. Rapid flu negative. Assessment and plan: 1. Fevers, nausea, vomiting, rule out sepsis possible source being right knee, right PICC. Abdomen is benign. UA and CXR neg. Drug induced febrile reaction is possible, antibiotic is unknown. 2. Hypokalemia with EKG changes 3. Hypomagnesemia 4. History of right septic knee joint s/p knee replacement 5. Chronic anemia with reactive thrombocytosis 6. Chronic pain syndrome on narcotics - Admit to Telemetry - Monitor for arrhythmias - Replete electrolytes - Monitor for EKG changes - Check cortisol levels - Panculture - Gentle IV hydration - Resume IV antibiotic that patient is supposed to be on - Obtain records from [facility] - ID consult - Consult Ortho - Please confirm CMR in AM and resume meds - Work up anemia iron studies, TSH, B12, folic acid. - Pain management with dilaudid DVT ppx Alps (anemia). Full code.
[2017-04-14 03:15] VITALS: BP 138/72
[2017-04-14 06:27] VITALS: BP 130/76
--- NOTE | 2017-04-14 06:55 | Admission Certification ---
Admission Certification Certification Statement - As attending physician, I certify that at the time of - admission, based on clinical presentation, severity of - symptoms, need for further diagnostic testing and - therapeutic interventions, and risk of adverse outcomes - without in-hospital treatment, in my clinical assessment, - this patient requires an acute hospital stay for a minimum - of two nights or longer. I have also considered psychsocial - factors such as support system, advanced age, financial - issues, cognitive issues, and failed out-patient treatments, - past re-admission history, safety of patient, and lack of - compliance as applicable. Specific rationale supporting this admission is: Hypokalemia, fevers and vomiting needs further evaluation.
[2017-04-14 07:43] LABS: ABSOLUTE BASOPHIL COUNT 0 /CUMM (0.0-0.2); ABSOLUTE EOSINOPHIL COUNT 0 /CUMM (0.0-0.7); ABSOLUTE GRANULOCYTE CT 9.8 /CUMM (1.4-6.5); ABSOLUTE LYMPH COUNT 1.7 /CUMM (1.2-3.4); ABSOLUTE MONOCYTE COUNT 0.9 /CUMM (0.10-0.60); BASOPHIL % 0.3 % (0.0-2.0); EOSINOPHIL % 0.1 % (0-5); GRANULOCYTE % 78.9 % (42.2-75.2); HEMATOCRIT 26.4 % (37-47); MEAN CORPUSCULAR HGB 25.7 PG (27.0-31.0); MEAN CORPUSCULAR HGB CONC 33.1 G/DL (33.0-37.0); MEAN CORPUSCULAR VOLUME 77.8 FL (81.0-99.0); MEAN PLATELET VOLUME 8.6 FL (7.4-10.4); PLATELET COUNT 360 /CUMM (130-400); RBC DISTRIBUTION WIDTH 17.4 % (11.5-14.5); WHITE BLOOD CELL COUNT 12.4 /CUMM (4.8-10.8)
--- NOTE | 2017-04-14 11:32 | Cons- Infect Disease ---
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, for which she underwent debridement with retention of the prosthesis and treatment with 6 weeks of Oxacillin and Rifampin, admitted 3 weeks prior to admission with a relapse of her infection, with MSSA again isolated from an arthrocentesis performed by IR, transferred to [facility], where she apparently underwent removal of the prosthesis with placement of a spacer, apparently discharged on Oxacillin with a PICC to a rehabilitation facility and, ultimately, home 3 days prior to admission, with persistent fevers prompting a change to Ceftriaxone 2 days prior to admission, admitted on April 13 with recurrent fevers, nausea and vomiting, fatigue and weakness. On admission she was afebrile. Laboratory data revealed a white blood cell count of 11,000, BUN/ creatinine 10 and 0.8, potassium 2.0, with normal liver enzymes. Urinalysis rare RBCs/1-3 WBCs. Chest x-ray was negative. She was followed off antibiotics and has remained afebrile. Presently she continues to complain of nausea. She does not report significant pain in the right knee. Allergies/Medications Allergies: Coded Allergies: ciprofloxacin (From Cipro) (Intermediate, HIVES 09/02/15) adhesive tape (RASH; PER PT OKAY WITH PAPER TAPE 03/21/17) diphenhydramine (BLISTERS IN MOUTH 03/21/17) Home Med List: Cyclobenzaprine HCl 5 MG TABLET 1 TAB PO PRN MUSCLE SPASMS (Reported) Gabapentin 400 MG CAPSULE 1 CAP PO QPM NERVE PAIN (Reported) Hydromorphone HCl 8 MG TABLET 1 TAB PO TID PAIN (Reported) Meloxicam 15 MG TABLET 1 TAB PO DAILY PAIN/INFLAMMATION (Reported) Omeprazole 40 MG CAPSULE.DR 1 CAP PO PRN GI (Reported) Oxycodone HCl (Oxycontin) 40 MG TAB.ER.12H 1 TAB PO DAILY PAIN (Reported) Sennosides (Senna) 8.6 MG TABLET 5 TAB PO DAILY CONSTIPATION (Reported) Past History Travel History Traveled to [place] past 21 day No Medical History Blood Transfusion Hx: No Neurological: NONE EENT: NONE Cardiovascular: aortic aneurysm Respiratory: NONE Gastrointestinal: GERD Hepatic: NONE Renal: nephrolithiasis, RENAL ARTERY ANEURYSM Musculoskeletal: osteoarthritis, CHRONIC BACK PAIN Psychiatric: NONE Endocrine: NONE Blood Disorders: NONE Cancer(s): NONE 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 spouse, child Services at Home: None Primary Language: Amharic Smoking Status: Never Smoked ETOH Use: denies use Illicit Drug Use: denies illicit drug use Functional Ability ADLs Independent: dressing, eating, toileting, bathing. Ambulation: independent, walker Review of Systems Review of Systems Respiratory: Reports: no symptoms. GI: Denies: abdominal pain, diarrhea. Genitourinary: Reports: no symptoms. Exam & Diagnostic Data Last 24 Hrs of Vital Signs/I&O Vital Signs Date Time Temp Pulse Resp B/P B/P Pulse O2 O2 Flow FiO2 Mean Ox Delivery Rate 04/14 0627 98.6 79 20 130/76 99 Room Air 04/14 0315 99.7 68 18 138/72 97 Room Air 04/14 0231 99.0 74 16 139/75 100 Room Air 04/14 0059 98.8 77 16 117/66 97 Room Air 04/13 2132 98.6 74 22 135/75 98 Room Air Intake & Output 04/14 1600 04/14 0800 04/14 0000 Intake Total 300 1150 Output Total 350 Balance -50 1150 Intake, IV 1000 Intake, Oral 300 150 Output, Urine 350 Patient 190 lb Weight Weight Reported by Patient Measurement Method Physical Exam Other Physical Findings: Afebrile. She is awake and alert in no acute distress. Skin reveals no rash. HEENT negative. Neck is supple with no adenopathy. Lungs are clear. Heart regular rhythm with 1/6 systolic ejection murmur. Abdomen is soft, nontender with positive bowel sounds. Back no CVA tenderness. Extremities right knee incision clean, with no erythema, edema or drainage, minimally tender to palpation; PICC in the right upper extremity with no inflammation at the site. Neuro is without focality. Last 24 Hours of Lab Results: Laboratory Tests 04/14 04/14 0630 0630 Chemistry Sodium (137 - 145 mmol/L) 139 Potassium (3.5 - 5.1 mmol/L) 2.8 *L Chloride (98 - 107 mmol/L) 100 Carbon Dioxide (22 - 30 mmol/L) 24 Anion Gap (5 - 16) 14 BUN (7 - 17 mg/dL) 9 Creatinine (0.5 - 1.0 mg/dL) 0.8 Estimated GFR (>60 ml/min) > 60 BUN/Creatinine Ratio (7 - 25 %) 11.3 Magnesium (1.6 - 2.3 mg/dL) 2.2 2.2 Cortisol AM Sample (4.46 - 22.7 ug/dL) 29.2 H Hematology CBC w Diff NO MAN DIFF REQ WBC (4.8 - 10.8 /CUMM) 12.4 H RBC (4.20 - 5.40 /CUMM) 3.40 L Hgb (12.0 - 16.0 G/DL) 8.7 L Hct (37 - 47 %) 26.4 L MCV (81.0 - 99.0 FL) 77.8 L MCH (27.0 - 31.0 PG) 25.7 L MCHC (33.0 - 37.0 G/DL) 33.1 RDW (11.5 - 14.5 %) 17.4 H Plt Count (130 - 400 /CUMM) 360 MPV (7.4 - 10.4 FL) 8.6 Gran % (42.2 - 75.2 %) 78.9 H Lymphocytes % (20.5 - 51.1 %) 13.3 L Monocytes % (1.7 - 9.3 %) 7.4 Eosinophils % (0 - 5 %) 0.1 Basophils % (0.0 - 2.0 %) 0.3 Absolute Granulocytes (1.4 - 6.5 /CUMM) 9.8 H Absolute Lymphocytes (1.2 - 3.4 /CUMM) 1.7 Absolute Monocytes (0.10 - 0.60 /CUMM) 0.9 H Absolute Eosinophils (0.0 - 0.7 /CUMM) 0 Absolute Basophils (0.0 - 0.2 /CUMM) 0 04/14 04/14 04/14 0120 0015 0015 Chemistry Potassium (3.5 - 5.1 mmol/L) 2.3 *L Lactic Acid (0.7 - 2.1 mmol/L) 0.5 L Urines Urine Color (YEL,AMB,STR) YEL Urine Clarity (CLEAR) HAZY H Urine pH (5.0 - 8.0) 7.0 Ur Specific [place] (1.001 - 1.035) 1.010 Urine Protein (NEG,<30 MG/DL) TRACE H Urine Ketones (NEG) NEG Urine Nitrite (NEG) NEG Urine Bilirubin (NEG) NEG Urine Urobilinogen (0.1 - 1.0 EU/dl) 0.2 Ur Leukocyte Esterase (NEG) TRACE H Ur Microscopic SEDIMENT EXAMINED Urine RBC (0 - 5 /HPF) RARE Urine WBC (0 - 2 /HPF) 1-3 H Ur Epithelial Cells (NONE,FEW) RARE Urine Hemoglobin (NEG) SMALL H Urine Glucose (N MG/DL) NEG 04/13 2145 Chemistry Sodium (137 - 145 mmol/L) 134 L Potassium (3.5 - 5.1 mmol/L) 2.0 *L Chloride (98 - 107 mmol/L) 95 L Carbon Dioxide (22 - 30 mmol/L) 23 Anion Gap (5 - 16) 17 H BUN (7 - 17 mg/dL) 10 Creatinine (0.5 - 1.0 mg/dL) 0.8 Estimated GFR (>60 ml/min) > 60 BUN/Creatinine Ratio (7 - 25 %) 12.5 Glucose (65 - 99 mg/dL) 116 H Lactic Acid (0.7 - 2.1 mmol/L) 0.8 Calcium (8.4 - 10.2 mg/dL) 8.3 L Magnesium (1.6 - 2.3 mg/dL) 1.4 L Iron (37 - 170 ug/dL) 15 L TIBC (265 - 497 ug/dL) 259 L Ferritin (11.1 - 264 ng/mL) 128.0 Total Bilirubin (0.2 - 1.3 mg/dL) 0.7 AST (14 - 36 U/L) 16 ALT (9 - 52 U/L) 19 Alkaline Phosphatase (<127 U/L) 95 Total Protein (6.3 - 8.2 g/dL) 7.3 Albumin (3.5 - 5.0 g/dL) 3.7 Globulin (1.9 - 4.2 gm/dL) 3.6 Albumin/Globulin Ratio (1.1 - 2.2 %) 1.0 L Hematology CBC w Diff NO MAN DIFF REQ WBC (4.8 - 10.8 /CUMM) 11.1 H RBC (4.20 - 5.40 /CUMM) 3.68 L Hgb (12.0 - 16.0 G/DL) 9.2 L Hct (37 - 47 %) 28.1 L MCV (81.0 - 99.0 FL) 76.3 L MCH (27.0 - 31.0 PG) 25.0 L MCHC (33.0 - 37.0 G/DL) 32.7 L RDW (11.5 - 14.5 %) 16.9 H Plt Count (130 - 400 /CUMM) 407 H MPV (7.4 - 10.4 FL) 7.8 Gran % (42.2 - 75.2 %) 83.6 H Lymphocytes % (20.5 - 51.1 %) 10.0 L Monocytes % (1.7 - 9.3 %) 6.2 Eosinophils % (0 - 5 %) 0.1 Basophils % (0.0 - 2.0 %) 0.1 Absolute Granulocytes (1.4 - 6.5 /CUMM) 9.3 H Absolute Lymphocytes (1.2 - 3.4 /CUMM) 1.1 L Absolute Monocytes (0.10 - 0.60 /CUMM) 0.7 H Absolute Eosinophils (0.0 - 0.7 /CUMM) 0 Absolute Basophils (0.0 - 0.2 /CUMM) 0 Last 24 Hours of Titus Results: Blood cultures 2 April 13 negative Rapid flu swab April 13 negative Diagnostic Data Recent Imaging Findings: Chest x-ray April 13 negative Assessment/Plan Assessment/Plan Impression: This is a 56-year-old woman status post right knee arthroplasty 1 year prior to admission, which was complicated by an 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, for which she underwent debridement with retention of the prosthesis and treatment with 6 weeks of Oxacillin and Rifampin, status post removal of the prosthesis with placement of a spacer 3 weeks prior to admission at [facility] after presenting with a relapse of her infection, again secondary to MSSA, treated with Oxacillin postoperatively but apparently changed to Ceftriaxone 2 days prior to admission because of persistent fevers, admitted on April 13 with recurrent fevers, nausea and vomiting, fatigue and weakness, found to be afebrile with a mild leukocytosis and hypokalemia. The etiology of her GI symptoms is unclear. She has no abdominal tenderness to suggest an intra-abdominal source. It could be medication induced, possibly secondary to the Ceftriaxone, which has just recently been started. She has no fevers currently and she has no obvious focus of infection, with no inflammation in the right knee. At this time she can be continued on the Ceftriaxone but, if her GI symptoms persist, she will need further evaluation including reevaluation of her antibiotics. Further information regarding her recent infection should be obtained from her orthopedist and ID physician. Suggestion: 1. Would obtain details regarding her recent surgery and antibiotic treatment from her orthopedist and ID physician 2. Further evaluation, including right upper quadrant ultrasound, if her GI symptoms persist 3. Would obtain an ESR 4. Continue Ceftriaxone 2 g IV every 24 hours pending above Consult Acknowledgment - Thank you for your consult request.
--- NOTE | 2017-04-14 12:35 | PN- Att Addend ---
Attending Addendum Attending Brief Note 56F PMH right knee replacement complicated by hardware infection s/p multiple washout and I&D with resulting fibrosis, recently wash out with patella hardware removal with active PICC on IV antibiotics, presenting with 1 day of fever, headache, diaphoresis, weakness, and decreased PO intake. Denies neck stiffness , photophobia, chest pain, SOB, abdominal pain, diarrhea, dysuria. Knee pain is chronic and unchanged. Still feels ill today but appears slightly improved. Cultures negative, labs unremarkable. AFVSS NAD NCAT Supple RRR CTAB Soft, NTND No c/c/e, incision wound clean/dry Pulses intact A&Ox3 no focal deficits Current Medications Sig/Yousuf Start time Last Medication Dose Route Stop Time Status Admin Acetaminophen 1,000 MG Q6 PRN 04/14 0530 AC IV Acetaminophen 0 .STK-MED ONE 04/143 DC IV Acetaminophen 1,000 MG ONCE ONE 04/14 199 DC 04/14 IV 04/14 0201 0210 Enoxaparin Sodium 40 MG DAILY 04/14 1000 CAN SC Hydromorphone HCl 0.6 MG Q4P PRN 04/14 1230 UNVr IV Hydromorphone HCl 0.4 MG ONCE ONE 04/14 0845 DC 04/14 IV 04/14 0846 0907 Magnesium Sulfate 1 GM Q2H 04/14 0115 DC 04/14 Dextrose/Water 100 ML IV 04/14 0514 0309 Morphine Sulfate 2 MG Q6P PRN 04/14 0530 DC 04/14 IV 0536 Morphine Sulfate 0 .STK-MED ONE 04/14 0206 DC .ROUTE Morphine Sulfate 2 MG ONCE ONE 04/14 0200 DC 04/14 IV 04/14 0201 0210 Ondansetron HCl 0 .STK-MED ONE 04/14 0213 DC .ROUTE Potassium Chloride 10 MEQ ONCE ONE 04/14 0345 DC 04/14 IV 04/14 0346 0506 Potassium Chloride 10 MEQ ONCE ONE 04/14 0245 DC 04/14 IV 04/14 0246 0303 Potassium Chloride 0 .STK-MED ONE 04/13 223 DC PO Potassium Chloride 40 MEQ Q13H 04/13 2230 AC 04/14 Sodium Chloride 1,000 ML IV 1145 Potassium Chloride 40 MEQ ONCE ONE 04/13 2229 DC 04/13 PO 04/13 2230 223 Trimethobenzamide HCl 200 MG TID PRN 04/14 1215 UNVr IM Trimethobenzamide HCl 200 MG TID PRN 04/14 0700 AC IM Trimethobenzamide HCl 0 .STK-MED ONE 04/14 216 DC IM Trimethobenzamide HCl 200 MG ONCE ONE 04/14 214 DC 04/14 IM 04/14 215 0218 Laboratory Tests 04/14 04/14 0630 0630 Chemistry Sodium (137 - 145 mmol/L) 139 Potassium (3.5 - 5.1 mmol/L) 2.8 *L Chloride (98 - 107 mmol/L) 100 Carbon Dioxide (22 - 30 mmol/L) 24 Anion Gap (5 - 16) 14 BUN (7 - 17 mg/dL) 9 Creatinine (0.5 - 1.0 mg/dL) 0.8 Estimated GFR (>60 ml/min) > 60 BUN/Creatinine Ratio (7 - 25 %) 11.3 Magnesium (1.6 - 2.3 mg/dL) 2.2 2.2 Cortisol AM Sample (4.46 - 22.7 ug/dL) 29.2 H Hematology CBC w Diff NO MAN DIFF REQ WBC (4.8 - 10.8 /CUMM) 12.4 H RBC (4.20 - 5.40 /CUMM) 3.40 L Hgb (12.0 - 16.0 G/DL) 8.7 L Hct (37 - 47 %) 26.4 L MCV (81.0 - 99.0 FL) 77.8 L MCH (27.0 - 31.0 PG) 25.7 L MCHC (33.0 - 37.0 G/DL) 33.1 RDW (11.5 - 14.5 %) 17.4 H Plt Count (130 - 400 /CUMM) 360 MPV (7.4 - 10.4 FL) 8.6 Gran % (42.2 - 75.2 %) 78.9 H Lymphocytes % (20.5 - 51.1 %) 13.3 L Monocytes % (1.7 - 9.3 %) 7.4 Eosinophils % (0 - 5 %) 0.1 Basophils % (0.0 - 2.0 %) 0.3 Absolute Granulocytes (1.4 - 6.5 /CUMM) 9.8 H Absolute Lymphocytes (1.2 - 3.4 /CUMM) 1.7 Absolute Monocytes (0.10 - 0.60 /CUMM) 0.9 H Absolute Eosinophils (0.0 - 0.7 /CUMM) 0 Absolute Basophils (0.0 - 0.2 /CUMM) 0 04/14 04/14 04/14 0120 0015 0015 Chemistry Potassium (3.5 - 5.1 mmol/L) 2.3 *L Lactic Acid (0.7 - 2.1 mmol/L) 0.5 L Urines Urine Color (YEL,AMB,STR) YEL Urine Clarity (CLEAR) HAZY H Urine pH (5.0 - 8.0) 7.0 Ur Specific [place] (1.001 - 1.035) 1.010 Urine Protein (NEG,<30 MG/DL) TRACE H Urine Ketones (NEG) NEG Urine Nitrite (NEG) NEG Urine Bilirubin (NEG) NEG Urine Urobilinogen (0.1 - 1.0 EU/dl) 0.2 Ur Leukocyte Esterase (NEG) TRACE H Ur Microscopic SEDIMENT EXAMINED Urine RBC (0 - 5 /HPF) RARE Urine WBC (0 - 2 /HPF) 1-3 H Ur Epithelial Cells (NONE,FEW) RARE Urine Hemoglobin (NEG) SMALL H Urine Glucose (N MG/DL) NEG 04/13 2145 Chemistry Sodium (137 - 145 mmol/L) 134 L Potassium (3.5 - 5.1 mmol/L) 2.0 *L Chloride (98 - 107 mmol/L) 95 L Carbon Dioxide (22 - 30 mmol/L) 23 Anion Gap (5 - 16) 17 H BUN (7 - 17 mg/dL) 10 Creatinine (0.5 - 1.0 mg/dL) 0.8 Estimated GFR (>60 ml/min) > 60 BUN/Creatinine Ratio (7 - 25 %) 12.5 Glucose (65 - 99 mg/dL) 116 H Lactic Acid (0.7 - 2.1 mmol/L) 0.8 Calcium (8.4 - 10.2 mg/dL) 8.3 L Magnesium (1.6 - 2.3 mg/dL) 1.4 L Iron (37 - 170 ug/dL) 15 L TIBC (265 - 497 ug/dL) 259 L Ferritin (11.1 - 264 ng/mL) 128.0 Total Bilirubin (0.2 - 1.3 mg/dL) 0.7 AST (14 - 36 U/L) 16 ALT (9 - 52 U/L) 19 Alkaline Phosphatase (<127 U/L) 95 Total Protein (6.3 - 8.2 g/dL) 7.3 Albumin (3.5 - 5.0 g/dL) 3.7 Globulin (1.9 - 4.2 gm/dL) 3.6 Albumin/Globulin Ratio (1.1 - 2.2 %) 1.0 L Hematology CBC w Diff NO MAN DIFF REQ WBC (4.8 - 10.8 /CUMM) 11.1 H RBC (4.20 - 5.40 /CUMM) 3.68 L Hgb (12.0 - 16.0 G/DL) 9.2 L Hct (37 - 47 %) 28.1 L MCV (81.0 - 99.0 FL) 76.3 L MCH (27.0 - 31.0 PG) 25.0 L MCHC (33.0 - 37.0 G/DL) 32.7 L RDW (11.5 - 14.5 %) 16.9 H Plt Count (130 - 400 /CUMM) 407 H MPV (7.4 - 10.4 FL) 7.8 Gran % (42.2 - 75.2 %) 83.6 H Lymphocytes % (20.5 - 51.1 %) 10.0 L Monocytes % (1.7 - 9.3 %) 6.2 Eosinophils % (0 - 5 %) 0.1 Basophils % (0.0 - 2.0 %) 0.1 Absolute Granulocytes (1.4 - 6.5 /CUMM) 9.3 H Absolute Lymphocytes (1.2 - 3.4 /CUMM) 1.1 L Absolute Monocytes (0.10 - 0.60 /CUMM) 0.7 H Absolute Eosinophils (0.0 - 0.7 /CUMM) 0 Absolute Basophils (0.0 - 0.2 /CUMM) 0 Vital Signs Date Time Temp Pulse Resp B/P B/P Pulse O2 O2 Flow FiO2 Mean Ox Delivery Rate 04/14 0627 98.6 79 20 130/76 99 Room Air 04/14 0315 99.7 68 18 138/72 97 Room Air 04/14 0231 99.0 74 16 139/75 100 Room Air 04/14 0059 98.8 77 16 117/66 97 Room Air 04/132 98.6 74 22 135/75 98 Room Air Intake & Output 04/14 1600 04/14 0800 04/14 0000 Intake Total 300 1150 Output Total 350 Balance -50 1150 Intake, IV 1000 Intake, Oral 300 150 Output, Urine 350 Patient 86.183 kg Weight Weight Reported by Patient Measurement Method Plan - Continue on telemetry - Replete potassium through PO and IV - Follow cultures - Follow ID recommendations - COntinue Ceftriaxone - Obtain records from [place] [facility] - DVT PPx
[2017-04-14 14:16] VITALS: BP 120/60
--- NOTE | 2017-04-14 14:49 | RADIOLOGY REPORT ---
EXAMINATION: XR KNEE, RIGHT CLINICAL INFORMATION: Previous history of septic joint. Recent washout. Rule out acute pathology. COMPARISON: Right knee radiograph 03/21/2017. TECHNIQUE: Four views of the right knee. FINDINGS: There has been interval revision of the femoral and tibial components of the knee arthroplasty. The new components appear intact. Slight lateral positioning of the tibia with respect to the femur may be positional. Stable postoperative changes of patellar resurfacing. No joint effusion. Scattered rounded ossifications lateral to the distal femur and lateral to the proximal tibiofibular joint are new from prior examination and may be postoperative. Soft tissues are otherwise within normal limits. IMPRESSION: Interval revision of total knee arthroplasty. The femoral and tibial components appear intact. No acute findings.
[2017-04-14 21:26] VITALS: BP 124/78
[2017-04-15 06:21] LABS: ABSOLUTE BASOPHIL COUNT 0.1 /CUMM (0.0-0.2); ABSOLUTE EOSINOPHIL COUNT 0.1 /CUMM (0.0-0.7); ABSOLUTE GRANULOCYTE CT 8.5 /CUMM (1.4-6.5); ABSOLUTE LYMPH COUNT 2.5 /CUMM (1.2-3.4); ABSOLUTE MONOCYTE COUNT 0.8 /CUMM (0.10-0.60); BASOPHIL % 0.5 % (0.0-2.0); EOSINOPHIL % 0.5 % (0-5); GRANULOCYTE % 70.9 % (42.2-75.2); HEMATOCRIT 26.2 % (37-47); MEAN CORPUSCULAR HGB 25.7 PG (27.0-31.0); MEAN CORPUSCULAR HGB CONC 32.9 G/DL (33.0-37.0); MEAN CORPUSCULAR VOLUME 78.2 FL (81.0-99.0); MEAN PLATELET VOLUME 8.4 FL (7.4-10.4); PLATELET COUNT 378 /CUMM (130-400); RBC DISTRIBUTION WIDTH 17.9 % (11.5-14.5); RED BLOOD CELL CT 3.35 /CUMM (4.20-5.40)
[2017-04-15 07:21] VITALS: BP 136/74
--- NOTE | 2017-04-15 08:12 | PN- Housestaff ---
See Addendum Subjective Follow-up For: Sepsis 2/2 knee infection s/p TKA Hypokalemia- resolved Tele-Events Since Last Visit: NSR CA 65-68 Subjective: Patient visited today, was sitting at the bedside, right knee in splint full extension. Patient on ceftriaxone. In tele for hypokalemia wich resolved and planned to DC and transfer to . no fever or chills. Review of Systems Constitutional: Reports: see HPI. Objective Last 24 Hrs of Vital Signs/I&O Vital Signs Date Time Temp Pulse Resp B/P B/P Pulse O2 O2 Flow FiO2 Mean Ox Delivery Rate 04/15 1425 98.7 67 20 132/70 97 Room Air 04/15 0800 Room Air 04/15 0721 97.6 71 20 136/74 96 Room Air 04/14 2126 99.6 24 24 124/78 96 Intake & Output 04/15 1600 04/15 0800 04/15 0000 Intake Total 1080 1080 255 Output Total 850 900 900 Balance 230 180 -645 Intake, IV 600 600 225 Intake, Oral 480 480 30 Number 1 1 Bowel Movements Output, Urine 850 900 900 Physical Exam General Appearance: Alert, Oriented X3, Cooperative, No Acute Distress Skin Temp/Moisture Exam: Warm/Dry Sepsis Skin Exam (color): Normal for Ethnicity HEENT: Atraumatic, EOMI, Mucous Membr. moist/pink Cardiovascular: Regular Rate, Normal S1, Normal S2 Lungs: Clear to Auscultation Neurological: Normal Speech, Strength at 5/5 X4 Ext Extremities: as noted above, right leg in full extension Current Medications: Current Medications Sig/Yousuf Start time Last Medication Dose Route Stop Time Status Admin Acetaminophen 1,000 MG Q6 PRN 04/14 0530 AC IV Ceftriaxone Sodium 2,000 MG DAILY@1600 04/14 1600 AC 04/15 IV 1611 Hydromorphone HCl 0.6 MG Q4P PRN 04/14 1230 AC 04/15 IV 2005 Metoclopramide HCl 10 MG Q6P PRN 04/14 1300 AC 04/15 IV 1909 Potassium Chloride 80 MEQ ONCE ONE 04/14 2300 DC 04/14 PO 04/14 2301 2254 Potassium Chloride 40 MEQ Q13H 04/13 2230 DC 04/15 Sodium Chloride 1,000 ML IV 1115 Last 24 Hrs of Lab/Titus Results Last 24 Hrs of Labs/Mics: Laboratory Tests 04/15/17 0557: Anion Gap 12, Estimated GFR > 60, BUN/Creatinine Ratio 12.5, Magnesium 2.1, CBC w Diff NO MAN DIFF REQ, RBC 3.35 L, MCV 78.2 L, MCH 25.7 L, MCHC 32.9 L, RDW 17.9 H, MPV 8.4, Gran % 70.9, Lymphocytes % 21.2, Monocytes % 6.9, Eosinophils % 0.5, Basophils % 0.5, Absolute Granulocytes 8.5 H, Absolute Lymphocytes 2.5, Absolute Monocytes 0.8 H, Absolute Eosinophils 0.1, Absolute Basophils 0.1 04/14/171: Anion Gap 12, Estimated GFR > 60, BUN/Creatinine Ratio 12.2 Assessment/Plan Assessment: Ms. Villareal is a 56F with PMH of aortic aneurysm, GERD, nephrolithiasis, renal artery aneurysm, and right knee replacement complicated by hardware infection s/ p multiple washout and I&D with resulting fibrosis, recently wash out with patellar hardware removal (Dr. Garrett, [place]) with active PICC on IV antibiotics, presenting with 1 day of fever, headache, diaphoresis, weakness, and decreased PO intake. Presentation, vital signs were T 98.6, HR 74, RR 22, BP 135/75, saturating 90% on room air. Laboratories worsened and for white blood cell count 11.1, 83.6% granulocytes, hemoglobin 9.2, MCV 76.3, platelets 407, potassium 2.0, lactic acid 0.8, calcium 8.3, albumin 3.7, magnesium 1.4. Chest x-ray was negative for any acute abnormality. She was treated with potassium chloride and 1 L normal saline in the emergency room. She was admitted to telemetry and treated for the following problems: 1. Hypokalemia 2. Sepsis 3. Microcytic anemia 4. Hypocalcemia 5. Thrombocytosis 6. Hypomagnesemia #Hypokalemia: May by mediated by hypomagnesmia versus hyperaldosteronism versus other cause. She also has a mild hyponatremia and is on omeprazole. Other reason could be poor po intake. -Hold omeprazole -Replenish K, repeat BEP/Mg -Tele monitoring - currently resolved - will continur to monitor #Sepsis: The patient presents with 2/4 SIRS criteria (tachypnea, leukocytosis). The most obvious source would be her right knee given her previous infection. -follow [facility]ulture -Infectious disease consult -Continue ceftriaxone #Microcytic anemia: She is asymptomatic. -Iron studies -Guaiac stool was positive - need to continue in outpatient for possible GI endoscopy #Hypocalcemia: Mild and asymptomatic. -Continue to monitor #Chronic medical problems: -Reconcile home medications in the morning DVT prophylaxis with enoxaparin Regular diet Full code Problem List: 1. Hypokalemia 2. Infected prosthetic knee joint Pain Ratin (at time of interview,) Pain Location: knee, no pain with no motion Pain Goal: Pain 4 or less Pain Plan: Continue current plan Tomorrow's Labs & Rationales: CBC bEP
--- NOTE | 2017-04-15 10:46 | PN- Infect Dx ---
Subjective Subjective: Afebrile without complaints. She has had no further nausea or vomiting. Objective Last 24 Hrs of Vital Signs/I&O Vital Signs Date Time Temp Pulse Resp B/P B/P Pulse O2 O2 Flow FiO2 Mean Ox Delivery Rate 04/15 0721 97.6 71 20 136/74 96 Room Air 04/14 2126 99.6 24 24 124/78 96 04/14 1416 99.7 75 24 120/60 97 Room Air 04/14 1326 99.3 Intake & Output 04/15 1600 04/15 0800 04/15 0000 Intake Total 1080 255 Output Total 900 900 Balance 180 -645 Intake, IV 600 225 Intake, Oral 480 30 Number 1 Bowel Movements Output, Urine 900 900 Physical Exam Other Physical Findings: She appears comfortable in no acute distress Lungs are clear Heart regular rhythm with no murmur Abdomen is soft, nontender with positive bowel sounds Extremities right knee with no inflammation Results Last 24 Hours of Lab Results: Laboratory Tests 04/15 04/14 04/14 04/14 0557 2121 1820 1336 Chemistry Sodium (137 - 145 mmol/L) 141 139 137 Potassium (3.5 - 5.1 mmol/L) 3.8 2.9 *L 2.7 *L Chloride (98 - 107 mmol/L) 109 H 102 101 Carbon Dioxide (22 - 30 mmol/L) 20 L 25 24 Anion Gap (5 - 16) 12 12 13 BUN (7 - 17 mg/dL) 10 11 8 Creatinine (0.5 - 1.0 mg/dL) 0.8 0.9 0.8 Estimated GFR (>60 ml/min) > 60 > 60 > 60 BUN/Creatinine Ratio (7 - 25 %) 12.5 12.2 10.0 Magnesium (1.6 - 2.3 mg/dL) 2.1 Hematology CBC w Diff NO MAN DIFF REQ WBC (4.8 - 10.8 /CUMM) 12.0 H RBC (4.20 - 5.40 /CUMM) 3.35 L Hgb (12.0 - 16.0 G/DL) 8.6 L Hct (37 - 47 %) 26.2 L MCV (81.0 - 99.0 FL) 78.2 L MCH (27.0 - 31.0 PG) 25.7 L MCHC (33.0 - 37.0 G/DL) 32.9 L RDW (11.5 - 14.5 %) 17.9 H Plt Count (130 - 400 /CUMM) 378 MPV (7.4 - 10.4 FL) 8.4 Gran % (42.2 - 75.2 %) 70.9 Lymphocytes % (20.5 - 51.1 %) 21.2 Monocytes % (1.7 - 9.3 %) 6.9 Eosinophils % (0 - 5 %) 0.5 Basophils % (0.0 - 2.0 %) 0.5 Absolute Granulocytes (1.4 - 6.5 /CUMM) 8.5 H Absolute Lymphocytes (1.2 - 3.4 /CUMM) 2.5 Absolute Monocytes (0.10 - 0.60 /CUMM) 0.8 H Absolute Eosinophils (0.0 - 0.7 /CUMM) 0.1 Absolute Basophils (0.0 - 0.2 /CUMM) 0.1 ESR Westergren (0 - 20 MM) 122 H Last 24 Hours of Titus Results: Blood cultures 2 April 13 negative Recent Imaging Studies: X-ray of the right knee April 14 reveals revision of the femoral and tibial components of the knee arthroplasty Assessment/Plan Impression: Stable with temperatures remaining normal on Ceftriaxone for an infected right knee prosthesis, status post presumed removal of all the hardware 24 days ago at [facility], with a spacer apparently placed for eventual insertion of a new prosthesis. Her ESR remains elevated, which is of some concern and will discuss further with her infectious diseases physician and orthopedist at [facility]. The etiology of her recent GI symptoms is unclear but they appear to have resolved. Suggestion: 1. Await details regarding her recent surgery and antibiotic treatment from her orthopedist and ID physician 2. Continue Ceftriaxone pending above
[2017-04-15 14:25] VITALS: BP 132/70
[2017-04-15 22:23] VITALS: BP 128/82
[2017-04-16 05:45] VITALS: BP 142/98
--- NOTE | 2017-04-16 07:16 | PN- Housestaff ---
See Addendum Subjective Follow-up For: Sepsis 2/2 knee infection s/p TKA Hypokalemia- resolved Tele-Events Since Last Visit: GM hold Subjective: Patient has no complaints. No acute events overnight. Patient anticipated to gp home today Review of Systems Constitutional: Reports: see HPI. Objective Last 24 Hrs of Vital Signs/I&O Vital Signs Date Time Temp Pulse Resp B/P B/P Pulse O2 O2 Flow FiO2 Mean Ox Delivery Rate 04/16 1439 98.6 58 20 142/86 97 Room Air 04/16 0545 97.3 61 20 142/98 98 04/15 2223 98.1 68 20 128/82 98 Room Air Intake & Output 04/16 1600 04/16 0800 04/16 0000 Intake Total 550 120 120 Output Total 780 1800 400 Balance -230 -1680 -280 Intake, IV 10 Intake, Oral 540 120 120 Output, Urine 780 1800 400 Physical Exam General Appearance: Alert, Oriented X3, Cooperative, No Acute Distress Cardiovascular: Regular Rate, Normal S1, Normal S2 Lungs: Clear to Auscultation, Normal Air Movement Abdomen: Normal Bowel Sounds, Soft, No Tenderness Extremities: No Edema, R knee sutures with dressing intact without drainage Current Medications: Current Medications Sig/Yousuf Start time Last Medication Dose Route Stop Time Status Admin Acetaminophen 1,000 MG Q6 PRN 04/14 0530 AC 04/16 IV 0146 Ceftriaxone Sodium 2,000 MG DAILY@1600 04/14 1600 AC 04/16 IV 1610 Hydromorphone HCl 0.6 MG Q4P PRN 04/14 1230 AC 04/16 IV 1726 Metoclopramide HCl 10 MG Q6P PRN 04/14 1300 AC 04/16 IV 1320 Patient Medication 1 ED ONE ONE 04/16 1100 OR Teaching ED 04/16 1101 Last 24 Hrs of Lab/Titus Results Last 24 Hrs of Labs/Mics: Laboratory Tests 04/16/17 0515: Anion Gap 13, Estimated GFR > 60, BUN/Creatinine Ratio 14.3, Magnesium 1.7, CBC w Diff NO MAN DIFF REQ, RBC 3.22 L, MCV 78.1 L, MCH 25.6 L, MCHC 32.8 L, RDW 17.2 H, MPV 9.1, Gran % 53.8, Lymphocytes % 36.5, Monocytes % 6.0, Eosinophils % 3.4, Basophils % 0.3, Absolute Granulocytes 4.3, Absolute Lymphocytes 2.9, Absolute Monocytes 0.5, Absolute Eosinophils 0.3, Absolute Basophils 0 Assessment/Plan Assessment: Ms. Villareal is a 56F with PMH of aortic aneurysm, GERD, nephrolithiasis, renal artery aneurysm, and right knee replacement complicated by hardware infection s/ p multiple washout and I&D with resulting fibrosis, recently wash out with patellar hardware removal (Dr. Garrett Colbert) with active PICC on IV antibiotics, presenting with 1 day of fever, headache, diaphoresis, weakness, and decreased PO intake. Active issues: 1. Hypokalemia - resolved 2. Septic arthritis 3. Microcytic anemia 4. Hypocalcemia 5. Thrombocytosis 6. Hypomagnesemia Plan: * Monitor and replete potassium and magnesium as needed * Continue ceftriaxone for septic arthritis * Continue to monitor calcium DVT prophylaxis with enoxaparin Diet: Regular Code: Full Problem List: 1. Septic joint of right knee joint Pain Ratin Pain Location: R knee Pain Goal: Pain 4 or less Pain Plan: Hydromorphone Tomorrow's Labs & Rationales: None
[2017-04-16 08:15] LABS: ABSOLUTE BASOPHIL COUNT 0 /CUMM (0.0-0.2); ABSOLUTE EOSINOPHIL COUNT 0.3 /CUMM (0.0-0.7); ABSOLUTE GRANULOCYTE CT 4.3 /CUMM (1.4-6.5); ABSOLUTE LYMPH COUNT 2.9 /CUMM (1.2-3.4); ABSOLUTE MONOCYTE COUNT 0.5 /CUMM (0.10-0.60); BASOPHIL % 0.3 % (0.0-2.0); EOSINOPHIL % 3.4 % (0-5); GRANULOCYTE % 53.8 % (42.2-75.2); HEMATOCRIT 25.2 % (37-47); MEAN CORPUSCULAR HGB 25.6 PG (27.0-31.0); MEAN CORPUSCULAR HGB CONC 32.8 G/DL (33.0-37.0); MEAN CORPUSCULAR VOLUME 78.1 FL (81.0-99.0); MEAN PLATELET VOLUME 9.1 FL (7.4-10.4); PLATELET COUNT 428 /CUMM (130-400); RBC DISTRIBUTION WIDTH 17.2 % (11.5-14.5); RED BLOOD CELL CT 3.22 /CUMM (4.20-5.40); WHITE BLOOD CELL COUNT 7.9 /CUMM (4.8-10.8)
--- NOTE | 2017-04-16 13:41 | PN- Infect Dx ---
Subjective Subjective: Afebrile. She continues to report eructation and nausea. She denies any abdominal pain. She also notes mild right knee pain. Objective Last 24 Hrs of Vital Signs/I&O Vital Signs Date Time Temp Pulse Resp B/P B/P Pulse O2 O2 Flow FiO2 Mean Ox Delivery Rate 04/16 0545 97.3 61 20 142/98 98 04/15 2223 98.1 68 20 128/82 98 Room Air 04/15 1425 98.7 67 20 132/70 97 Room Air Intake & Output 04/16 1600 04/16 0800 04/16 0000 Intake Total 120 120 Output Total 1800 400 Balance -1680 -280 Intake, Oral 120 120 Output, Urine 1800 400 Physical Exam Other Physical Findings: She appears mildly uncomfortable but in no acute distress Abdomen is soft, nontender with positive bowel sounds Extremities right knee dressing intact Results Last 24 Hours of Lab Results: Laboratory Tests 04/16 514 Chemistry Sodium (137 - 145 mmol/L) 143 Potassium (3.5 - 5.1 mmol/L) 3.7 Chloride (98 - 107 mmol/L) 108 H Carbon Dioxide (22 - 30 mmol/L) 22 Anion Gap (5 - 16) 13 BUN (7 - 17 mg/dL) 10 Creatinine (0.5 - 1.0 mg/dL) 0.7 Estimated GFR (>60 ml/min) > 60 BUN/Creatinine Ratio (7 - 25 %) 14.3 Magnesium (1.6 - 2.3 mg/dL) 1.7 Hematology CBC w Diff NO MAN DIFF REQ WBC (4.8 - 10.8 /CUMM) 7.9 RBC (4.20 - 5.40 /CUMM) 3.22 L Hgb (12.0 - 16.0 G/DL) 8.3 L Hct (37 - 47 %) 25.2 L MCV (81.0 - 99.0 FL) 78.1 L MCH (27.0 - 31.0 PG) 25.6 L MCHC (33.0 - 37.0 G/DL) 32.8 L RDW (11.5 - 14.5 %) 17.2 H Plt Count (130 - 400 /CUMM) 428 H MPV (7.4 - 10.4 FL) 9.1 Gran % (42.2 - 75.2 %) 53.8 Lymphocytes % (20.5 - 51.1 %) 36.5 Monocytes % (1.7 - 9.3 %) 6.0 Eosinophils % (0 - 5 %) 3.4 Basophils % (0.0 - 2.0 %) 0.3 Absolute Granulocytes (1.4 - 6.5 /CUMM) 4.3 Absolute Lymphocytes (1.2 - 3.4 /CUMM) 2.9 Absolute Monocytes (0.10 - 0.60 /CUMM) 0.5 Absolute Eosinophils (0.0 - 0.7 /CUMM) 0.3 Absolute Basophils (0.0 - 0.2 /CUMM) 0 Last 24 Hours of Titus Results: Blood cultures April 13 negative Assessment/Plan Impression: Recurrent nausea and eructation of unclear etiology with no abdominal pain or tenderness and with temperatures and white blood cell count normal on Ceftriaxone for an infected right knee prosthesis, status post removal of all the hardware 25 days ago at [facility]. Her ESR remains elevated, which is of some concern, and have discussed this with her orthopedist, Dr. Garrett, at [facility]. Have also placed a call to her infectious disease physician, Dr. Evans, but have not heard back from him. Suggestion: 1. Further evaluation/management of her GI symptoms per Medicine 2. Continue Ceftriaxone per her physicians at [facility]
[2017-04-16 14:39] VITALS: BP 142/86
[2017-04-16] MEDS ORDERED: HYDROMORPHONE ER8 MG PO (15:29)
[2017-04-16] MEDS ORDERED: HYDROMORPHONE HC8 M1 PO (15:31)
--- NOTE | 2017-04-16 15:35 | Patient Discharge Instructions ---
Discharge Instructions General Discharge Information You were seen/treated for: Septic joint of the knee Hypokalemia You had these procedures: none Special Instructions: Follow up with your PCP within 1-2 weeks after discharge Complete your antibiotics for your knee joint Diet Continue normal diet: Yes Activity Other activity limits: As tolerated Acute Coronary Syndrome Inclusion Criteria At DC or during hospital stay patient has or had the following: ACS DIAGNOSIS No Discharge Core Measures Meds if any: Prescribed or Continued at Discharge Meds if any: NOT Prescribed or Continued at Discharge Congestive Heart Failure Inclusion Criteria At DC or during hospital stay patient has or had the following: CHF DIAGNOSIS No Discharge Core Measures Meds if any: Prescribed or Continued at Discharge Meds if any: NOT Prescribed or Continued at Discharge Cerebrovascular accident Inclusion Criteria At DC or during hospital stay patient has or had the following: CVA/TIA Diagnosis No Discharge Core Measures Meds if any: Prescribed or Continued at Discharge Meds if any: NOT Prescribed or Continued at Discharge Venous thromboembolism Inclusion Criteria VTE Diagnosis No VTE Type NONE VTE Confirmed by (Test) NONE Discharge Core Measures - Per Current guidelines, there needs to be overlap - treatment for the first 5 days of Warfarin therapy. - If discharged on Warfarin prior to 5 days of - overlap therapy, the patient will need to be - assessed for post discharge needs including - *Post discharge parental anticoagulation - *Warfarin and/or parental anticoagulation education - *Follow up date to check INR post discharge At least 5 days overlap therapy as Inpatient No Meds if any: Prescribed or Continued at Discharge Note: Overlap Therapy is Warfarin and Anticoagulant Meds if any: NOT Prescribed or Continued at Discharge Meds if any: NOT Prescribed or Continued at Discharge
[2017-04-16] MEDS ORDERED: CEFTRIAXONE500 MG IM (16:24)
--- NOTE | 2017-04-17 13:37 | Discharge Summary ---
Visit Information Visit Dates Admission Date: 04/13/17 Discharge Date: 04/16/17 Hospital Course Course Attending Physician: Chandana De Guzman MD Primary Care Physician: Issac MARTINEZ,Adalberto Pang Allergies: Coded Allergies: ciprofloxacin (From Cipro) (Intermediate, HIVES 09/02/15) adhesive tape (RASH; PER PT OKAY WITH PAPER TAPE 03/21/17) diphenhydramine (BLISTERS IN MOUTH 03/21/17) Discharge Instructions Medications at Discharge Discharge Medications: Continue taking these medications: Sennosides (Senna) 8.6 MG TABLET 5 Tablet ORAL DAILY Comments: NOT GIVEN Gabapentin (Gabapentin) 400 MG CAPSULE 1 Capsule ORAL Every night Qty = 90 Comments: NOT GIVEN Meloxicam (Meloxicam) 15 MG TABLET 1 Tablet ORAL DAILY Qty = 30 Comments: NOT GIVEN Cyclobenzaprine HCl (Cyclobenzaprine HCl) 5 MG TABLET 1 Tablet ORAL as needed for MUSCLE SPASMS Qty = 90 Comments: NOT GIVEN Oxycodone HCl (Oxycontin) 40 MG TAB.ER.12H 1 Tablet ORAL DAILY Qty = 60 Comments: NOT GIVEN IN HOSPITAL Omeprazole (Omeprazole) 40 MG CAPSULE.DR 1 Capsule ORAL as needed for GI Qty = 30 Comments: NOT GIVEN AT HOSPITAL Hydromorphone HCl (Hydromorphone HCl) 8 MG TABLET 1 Tablet ORAL THREE TIMES DAILY as needed for pain Comments: NOT GIVEN AT HOSPITAL Ceftriaxone Sodium (Ceftriaxone) 500 MG VIAL 2,000 Milligram INTRAMUSC DAILY Comments: Last Taken:04/16/17 Time:1610
== END 2017-04-16 19:45 | disposition home health service (06) | DRG 560 ==
LOC: ERH 21:12 → 1NO 23:14 → ERHI 23:14 → EDBEDREQ 04-14 01:20 → ENRESERV 04-14 01:56 → 1NO 04-14 02:32 → ENTRNSPT 04-16 18:16 → CMPTRNSPT 04-16 18:41 → 1NO 04-16 19:45
PROVIDERS: Internal Medicine; Radiology Vascular & Interventional Radiology
DX: T84.53XA Infection and inflammatory reaction due to internal right knee prosthesis, initial encounter (principal); E87.1 Hypo-osmolality and hyponatremia; E83.42 Hypomagnesemia; E83.51 Hypocalcemia; R11.2 Nausea with vomiting, unspecified; Y83.8 Other surgical procedures as the cause of abnormal reaction of the patient, or of later complication, without mention of misadventure at the time of the procedure; E87.6 Hypokalemia; D50.9 Iron deficiency anemia, unspecified; G89.4 Chronic pain syndrome; K21.9 Gastro-esophageal reflux disease without esophagitis
CPT/HCPCS: 1NP; ERO; 36415; 71045; 73562-RT; 81001; 82436; 87040; 87804; 87804-59; 93005; 93010; J0131; J0696; J1650; J2405; J2765; J3250